=== PATIENT | male | born 1945 | race Hispanic/Latino ===

== ENCOUNTER 2019-05-30 02:21 | Emergency (ER) | payer OTHER, SELFPAY ==
[2019-05-30] MEDS ORDERED: ACETAMINOPHEN 500 MG TAB ONE (02:51)
[2019-05-30] MEDS ORDERED: METRONIDAZOLE 500mg IVPB 500 MG/100 ML BAG IV ONE (02:51)
[2019-05-30] MEDS ORDERED: NA CHLORIDE 0.9% 3,000 ML ONE (02:51)
[2019-05-30 02:53] LABS: Protime INR 1.25
[2019-05-30 03:02] LABS: Absolute Lymphocytes (CBC) 0.1 K/uL (0.7-4.9); Basophils % 0.5 % (0-1.3); Hematocrit 42.7 % (39.6-49.0); Lymphocytes % 7.6 % (15.3-44.8); MPV 9.6 fL (7.6-11.3); RBC Red Blood Cell Count 4.92 M/uL (4.33-5.43)
[2019-05-30] MEDS ORDERED: CEFTRIAXONE/SWI 1gm 1 GM/10 ML SYR ONE (03:04)
[2019-05-30 03:23] LABS: Albumin 3.6 g/dL (3.4-5.0); Bilirubin Direct 6.1 mg/dL (0-0.2); CKMB Creatine Kinase MB 2.2 ng/mL (0.3-3.6); Potassium 3.4 mmol/L (3.5-5.1); Protein, Total 8.4 g/dL (6.4-8.2)
[2019-05-30 04:01] LABS: Urine Blood 2+ (NEG); Urine Glucose 1+ (NEG); Urine Protein 3+ (NEG); Urine Specific Gravity >1.030 (1.005-1.030); Urine pH 5.5 (5.0-7.0)
[2019-05-30 04:09] LABS: Troponin (Emerg Dept Use Only) 0.11 ng/mL (0.0-0.045)
[2019-05-30 04:19] LABS: Blood Morphology Comment NOTED (NOT SEEN); Ovalocytes 2+; Platelet Estimate ADEQ
[2019-05-30 04:33] LABS: Urine Bacteria <20 /HPF (NONE SEEN); Urine Culture Reflex Order NOT NEEDED; Urine RBC <5 /HPF (NONE SEEN); Urine Urothelial Cells <5 /HPF (NONE SEEN)
--- NOTE | 2019-05-30 04:41 | EDPHYS ---
Physician Documentation [facility] Name: Kuldip Schaffer Jr Age: 74 yrs Sex: Male : 1945 Arrival Date: 05/30/2019 Time: 02:29 Bed 20 Private MD: ED Physician Cuate Larson HPI: 05/29 02:45 This 74 yrs old Male presents to ER via EMS with complaints of fever, RUQ abd ma2 pain. 02:45 The patient reports fever, that was measured at 103 degrees Fahrenheit. Associated ma2 signs and symptoms: Pertinent negatives: None. arthralgias, chest pain, sinus congestion. Severity of symptoms: At their worst the symptoms were moderate in the emergency department the symptoms are unchanged. The patient has experienced similar episodes in the past. Historical: - Allergies: 02:35 No Known Allergies; jd3 - Home Meds: 02:35 insulin [Active]; jd3 - PMHx: 02:35 Diabetes - IDDM; gal bladder problems; jd3 - PSHx: 02:35 left foot; jd3 - Immunization history:: Adult Immunizations up to date. - Social history:: Smoking status: Patient/guardian denies using tobacco, but has a distant history of tobacco abuse, Patient/guardian denies using alcohol, street drugs, The patient lives with spouse. - Family history:: not pertinent. ROS: 02:45 Constitutional: Negative for fever, chills, and weight loss. ma2 02:45 All other systems are negative. Exam: 02:45 Constitutional: This is a well developed, well nourished patient who is awake, alert, ma2 and in no acute distress. Head/Face: Normocephalic, atraumatic. Chest/axilla: Normal chest wall appearance and motion. Nontender with no deformity. No lesions are appreciated. Cardiovascular: Regular rate and rhythm with a normal S1 and S2. No gallops, murmurs, or rubs. Normal PMI, no JVD. No pulse deficits. Respiratory: Lungs have equal breath sounds bilaterally, clear to auscultation and percussion. No rales, rhonchi or wheezes noted. No increased work of breathing, no retractions or nasal flaring. Abdomen/GI: mildly tender in RUQ, with normal bowel sounds. No distension or tympany. No guarding or rebound. No evidence of tenderness throughout. Back: No spinal tenderness. No costovertebral tenderness. Full range of motion. Male : Normal genitalia with no discharge or lesions. MS/ Extremity: Pulses equal, no cyanosis. Neurovascular intact. Full, normal range of motion. Neuro: Awake and alert, GCS 15, oriented to person, place, time, and situation. Cranial nerves II-XII grossly intact. Motor strength 5/5 in all extremities. Sensory grossly intact. Cerebellar exam normal. Normal gait. Psych: Awake, alert, with orientation to person, place and time. Behavior, mood, and affect are within normal limits. Vital Signs: 02:35 BP 160 / 68; Pulse 103; Resp 20 S; Temp 103.2(O); Pulse Ox 86% on R/A; Weight 95.25 kg jd3 (R); Height 5 ft. 7 in. (170.18 cm) (R); Pain 0/10; 02:35 Pulse Ox 95% on 4 lpm NC; jd3 03:11 BP 147 / 67; Pulse 98; Resp 22 S; Pulse Ox 97% on 4 lpm NC; Pain 0/10; jd3 04:10 BP 126 / 63; Pulse 91; Resp 21 S; Temp 99.2(O); Pulse Ox 94% on 4 lpm NC; Pain 0/10; jd3 05:24 BP 127 / 72; Pulse 90; Resp 20 S; Pulse Ox 95% on 4 lpm NC; Pain 0/10; jd3 06:22 BP 116 / 66; Pulse 92; Resp 21 S; Pulse Ox 95% on 4 lpm NC; Pain 0/10; jd3 02:35 Body Mass Index 32.89 (95.25 kg, 170.18 cm) jd3 02:35 glucose level at 205 jd3 MDM: 02:39 Patient medically screened. ma2 02:45 Differential diagnosis: viral Infection, bacterial infection, URI, UTI. Data reviewed: ma2 vital signs, nurses notes. Counseling: I had a detailed discussion with the patient and/or guardian regarding: the historical points, exam findings, and any diagnostic results supporting the discharge/admit diagnosis, the presence of at least one elevated blood pressure reading (>120/80) during this emergency department visit, the need for outpatient follow up. Response to treatment: the patient's symptoms have markedly improved after treatment. 04:36 ED course: has sepsis, improved after fluids nd antibiotics, ct shows gallbladder stone ma2 however his tbili is 9 it is likely choledocholithiasis and his transaminases are elevated, we have gi doctor Sebastián called and his [employer] recommends transfer as he does not do ERCP in this hospital. will emergently transfer for higher level of care. he is stable now and aox4. no ultrasound available in our hospital at this time. . 05:07 Post IV fluid administration reassessment for Sepsis: Sepsis focused reassessment ma2 complete. Focused assessment performed: May 30, 2019 at 05:07 Heart: Regular rate/rhythm. Lungs: noted to be clear bilaterally. Capillary refill examination performed. Capillary refill noted to be brisk. Peripheral pulse evaluation performed. Peripheral pulses noted to be 3+ normal. Skin examination performed. Skin noted to be pink. Current patient vital signs reviewed: Yes. Neuro: Patient's neurological exam has improved from previous exam. Cardio: Cardiovascular exam improved from previous exam. Heart rate and blood pressure have improved. Respiratory: Respiratory exam improved from previous exam. 05/29 02:42 Order name: Amylase, Serum 2 05/29 02:42 Order name: Basic Metabolic Panel al2 05/29 02:42 Order name: Blood Culture Adult (2) al2 05/29 02:42 Order name: CBC with Diff; Complete Time: 04:44 05/29 02:42 Order name: Ckmb; Complete Time: 04:11 05/29 02:42 Order name: CPK; Complete Time: 04:11 05/29 02:42 Order name: Lactate; Complete Time: 03:52 05/29 02:42 Order name: LFT's; Complete Time: 04:11 05/29 02:42 Order name: Lipase; Complete Time: 04:11 05/29 02:42 Order name: Procalcitonin; Complete Time: 03:52 05/29 02:42 Order name: Protime (+inr); Complete Time: 03:52 al2 05/29 02:42 Order name: Ptt, Activated; Complete Time: 03:52 05/29 02:42 Order name: Troponin (emerg Dept Use Only); Complete Time: 04:11 al2 05/29 02:42 Order name: Urine Microscopic Only; Complete Time: 04:44 al2 05/29 02:42 Order name: Chest Single View XRAY al2 05/29 02:42 Order name: CT Abd/Pelvis - IV Contrast Only al2 05/29 02:43 Order name: Glucose, Ancillary Testing [facility] 05/29 02:43 Order name: Amylase Level; Complete Time: 04:11 [facility] 05/29 02:43 Order name: Basic Metabolic Panel; Complete Time: 04:11 [facility] 05/29 03:06 Order name: Manual Differential; Complete Time: 04:44 ED[facility] 05/29 03:33 Order name: Urine Dipstick--Ancillary (enter results); Complete Time: 04:11 md 05/29 05:54 Order name: Lactate Sepsis 2 HR Follow-up [facility] 05/29 02:42 Order name: Accucheck; Complete Time: 02:43 al2 05/29 02:42 Order name: Cardiac monitoring; Complete Time: 02:52 al2 05/29 02:42 Order name: EKG - Nurse/Tech; Complete Time: 02:43 al2 05/29 02:42 Order name: IV Saline Lock - Large Bore; Complete Time: 02:43 al2 05/29 02:42 Order name: Labs collected and sent; Complete Time: 02:52 ma2 05/29 02:42 Order name: O2 Per Protocol; Complete Time: 02:44 ma2 05/29 02:42 Order name: O2 Sat Monitoring; Complete Time: 02:52 al2 05/29 02:42 Order name: Urine Dipstick-Ancillary (obtain specimen); Complete Time: 04:49 ma2 05/29 04:47 Order name: NPO; Complete Time: 04:49 ma2 Administered Medications: 02:55 Drug: NS 0.9% (30 ml/kg) 30 ml/kg Route: IV; Rate: bolus; Site: right forearm; jd3 03:55 Follow up: Response: No adverse reaction; IV Status: Completed infusion; IV Intake: jd3 2900ml 02:56 Drug: Acetaminophen 1000 mg Route: PO; jd3 03:55 Follow up: Response: No adverse reaction jd3 02:56 Drug: Flagyl 500 mg Volume: 100 ml; Route: IVPB; Rate: 200 ml/hr; Infused Over: 30 jd3 mins; Site: right forearm; 03:55 Follow up: Response: No adverse reaction; IV Status: Completed infusion; IV Intake: jd3 100ml 03:00 Drug: Rocephin 1 grams Route: IV; Rate: calculated rate; Site: right forearm; jd3 03:05 Follow up: Response: No adverse reaction; IV Status: Completed infusion; IV Intake: [id number] 05:22 Not Given (Patient Refused): morphine 4 mg IVP once; RASS on ADMIN: Combtv4, Very jd3 Agttd3, Agttd2, Rstlss1, AlertClm0, Drwsy-1, Lt Sdtn-2, Mod Sdtn-3, Dp Sdtn-4, UnArsble-5 05:22 Not Given (Patient Refused): Zofran (Ondansetron) 4 mg IVP once; over 2 minutes jd3 Disposition: 05/30/19 04:[address] [facility]. Diagnosis is Calculus of bile duct with acute cholangitis with obstruction. - Reason for transfer: Higher level of care. - Accepting physician is Tamar Escobar - Condition is Stable. - Problem is new. - Symptoms are unchanged. Critical care time excluding procedures: 04:36 Critical care time: Bedside Care: 35 minutes. Total time: 35 minutes ma2 04:36 Critical care time: Bedside Care: 34 minutes, Consultation: 10 minutes, Family ma2 Intervention: 5 minutes. Total time: 49 minutes Signatures: Dispatcher [employer] Darius Baum RN RN jd3 Alzahri, Mohammad, MD MD ma2 Corrections: (The following items were deleted from the chart) 04:48 04:40 05/30/2019 04:[address] [facility]. ma2 Diagnosis is Calculus of bile duct with acute cholangitis with obstruction. Reason for transfer: Higher level of care. Accepting physician is OS. Condition is Stable. Problem is new. Symptoms are unchanged. ma2 05:31 05:07 LACTATE+C.LAB.BRZ ordered. [facility] 06:32 04:48 05/30/2019 04:[address] [facility]. jd3 Diagnosis is Calculus of bile duct with acute cholangitis with obstruction. Reason for transfer: Higher level of care. Accepting physician is Mamadou Escobar. Condition is Stable. Problem is new. Symptoms are unchanged. ma2
--- NOTE | 2019-05-30 04:41 | ER ---
Nurse's Notes [facility] Name: Kuldip Schaffer Jr Age: 74 yrs Sex: Male : 1945 Arrival Date: 05/30/2019 Time: 02:29 Bed 20 Private MD: Diagnosis: Calculus of bile duct with acute cholangitis with obstruction Presentation: 05/29 02:30 Chief complaint: EMS states: "we were called out for a pt having right upper abdominal jd3 pain. he has a reported history of diabetes and gal balder problems. he has slight fever and had become confused to the point he is A\\T\\O X1 when he is normally A\\T\\O X 4.". Coronavirus screen: Proceed with normal triage. Patient denies a cough. Patient reports a measured and/or subjective temperature greater than 100.4F. Patient denies travel on a cruise ship or to a country the [facility] currently lists as an affected area. Patient denies contact with known and/or suspected case of COVID-19. Ebola Screen: Patient negative for fever greater than or equal to 101.5 degrees Fahrenheit, and additional compatible Ebola Virus Disease symptoms. Initial Sepsis Screen: Does the patient meet any 2 criteria? Temp <36.0*C (96.8*F)) or > 38.3*C (100.9*F). Altered Mental Status. HR > 90 bpm. Yes Does the patient have a suspected source of infection? Yes: Acute abdominal pain If YES to both, name of provider notified: Cuate Larson MD Risk Assessment: Do you want to hurt yourself or someone else? Patient reports no desire to harm self or others. Onset of symptoms was May 30, 2019. 02:30 Method Of Arrival: EMS: [facility] jd3 02:30 Acuity: WILD 2 jd3 Historical: - Allergies: 02:35 No Known Allergies; jd3 - Home Meds: 02:35 insulin [Active]; jd3 - PMHx: 02:35 Diabetes - IDDM; gal bladder problems; jd3 - PSHx: 02:35 left foot; jd3 - Immunization history:: Adult Immunizations up to date. - Social history:: Smoking status: Patient/guardian denies using tobacco, but has a distant history of tobacco abuse, Patient/guardian denies using alcohol, street drugs, The patient lives with spouse. - Family history:: not pertinent. Screenin:39 Abuse screen: Denies threats or abuse. Nutritional screening: No deficits noted. jd3 Tuberculosis screening: No symptoms or risk factors identified. Fall Risk IV access (20 points). Ambulatory Aid- None/Bed Rest/Nurse Assist (0 pts). Gait- Weak (10 pts.). Mental Status- Oriented to own ability (0 pts). Total Pham Fall Scale indicates Low Risk Score (25-44 pts). Fall prevention measures have been instituted. Side Rails Up X 2 Placed close to Nursing Station Frequent Obs/Assesments occuring. Assessment: 02:36 General: Appears comfortable, Behavior is calm, cooperative, appropriate for age. Pain: jd3 Denies pain. Neuro: Level of Consciousness is awake, alert, obeys commands, Oriented to person, place. Cardiovascular: Denies chest pain, Heart tones S1 S2 present Capillary refill < 3 seconds Patient's skin is warm and dry. Respiratory: Airway is patent Respiratory effort is even, unlabored, Respiratory pattern is regular, symmetrical, Breath sounds are clear bilaterally. Denies cough, shortness of breath. GI: Abdomen is round Bowel sounds present X 4 quads. Abd is soft and non tender X 4 quads. Reports pain prior to arrival with no pain reported now. : No signs and/or symptoms were reported regarding the genitourinary system. EENT: No signs and/or symptoms were reported regarding the EENT system. Derm: Skin is intact, Skin is dry, Skin is normal, Skin temperature is warm. Musculoskeletal: Circulation, motion, and sensation intact. Range of motion: intact in all extremities. 03:12 Reassessment: Patient and/or family updated on plan of care and expected duration. Pain jd3 level reassessed. Patient is alert, oriented x 3, equal unlabored respirations, skin warm/dry/pink. Pain: Denies pain. Neuro: Level of Consciousness is awake, alert, obeys commands, Oriented to person, place, time, situation. 04:11 Reassessment: Patient and/or family updated on plan of care and expected duration. Pain jd3 level reassessed. Patient is alert, oriented x 3, equal unlabored respirations, skin warm/dry/pink. Pain: Denies pain. Neuro: Level of Consciousness is awake, alert, obeys commands, Oriented to person, place, time, situation. Respiratory: Airway is patent Respiratory effort is even, unlabored, Respiratory pattern is regular, symmetrical. GI: Patient currently denies abdominal pain. 05:25 Reassessment: Patient and/or family updated on plan of care and expected duration. Pain jd3 level reassessed. Patient is alert, oriented x 3, equal unlabored respirations, skin warm/dry/pink. Patient states feeling better. Pain: Denies pain. Neuro: Level of Consciousness is awake, alert, obeys commands, Oriented to person, place, time, situation. GI: Patient currently denies abdominal pain. 05:38 Reassessment: report given to Sofía WOO at [facility]. pt singed transfer sheet. jd3 06:21 Reassessment: No changes from previously documented assessment. Patient and/or family jd3 updated on plan of care and expected duration. Pain level reassessed. Patient is alert, oriented x 3, equal unlabored respirations, skin warm/dry/pink. awaiting EMS for transfer. 06:32 Reassessment: Patient and/or family updated on plan of care and expected duration. Pain jd3 level reassessed. Patient is alert, oriented x 3, equal unlabored respirations, skin warm/dry/pink. report given to Ruddy with EMS. Vital Signs: 02:35 BP 160 / 68; Pulse 103; Resp 20 S; Temp 103.2(O); Pulse Ox 86% on R/A; Weight 95.25 kg jd3 (R); Height 5 ft. 7 in. (170.18 cm) (R); Pain 0/10; 02:35 Pulse Ox 95% on 4 lpm NC; jd3 03:11 BP 147 / 67; Pulse 98; Resp 22 S; Pulse Ox 97% on 4 lpm NC; Pain 0/10; jd3 04:10 BP 126 / 63; Pulse 91; Resp 21 S; Temp 99.2(O); Pulse Ox 94% on 4 lpm NC; Pain 0/10; jd3 05:24 BP 127 / 72; Pulse 90; Resp 20 S; Pulse Ox 95% on 4 lpm NC; Pain 0/10; jd3 06:22 BP 116 / 66; Pulse 92; Resp 21 S; Pulse Ox 95% on 4 lpm NC; Pain 0/10; jd3 02:35 Body Mass Index 32.89 (95.25 kg, 170.18 cm) jd3 02:35 glucose level at 205 j ED Course: 02:29 Patient arrived in ED. jd3 02:30 Darius Davis, RN is Primary Nurse. jd3 02:33 Triage completed. jd3 02:35 Maintain EMS IV. Dressing intact. Good blood return noted. Site clean \\T\\ dry. Gauge \\T\\ nilesh 4 site: 20 g LAC. Flushed left antecubital with 5 ml normal saline Converted IV to saline lock on left antecubital area. 02:35 Initial lab(s) drawn, by me, sent to lab. jb4 02:36 Arm band placed on. EKG completed in triage. Results shown to MD. jd3 02:39 Cuate Larson MD is Attending Physician. ma2 02:40 Patient has correct armband on for positive identification. Placed in gown. Bed in low jd3 position. Call light in reach. Side rails up X 1. manager monitoring on. Pulse ox on. NIBP on. 02:40 First set of blood cultures drawn by me, Second set of blood cultures drawn by ED jb4 staff. EKG done, by ED staff, reviewed by Cuate Larson MD. 02:52 Blood Culture Adult (2) Sent. jb4 02:52 CBC with Diff Sent. jb4 02:52 Amylase, Serum Sent. jb4 02:53 Basic Metabolic Panel Sent. jb4 02:53 Ckmb Sent. jb4 02:53 CPK Sent. jb4 02:53 Lactate Sent. jb4 02:53 LFT's Sent. jb4 02:53 Lipase Sent. jb4 02:53 Procalcitonin Sent. jb4 02:54 Protime (+inr) Sent. jb4 02:54 Ptt, Activated Sent. jb4 02:54 Troponin (emerg Dept Use Only) Sent. jb4 02:54 Basic Metabolic Panel Sent. jb4 02:55 Amylase Level Sent. jb4 03:08 Chest Single View XRAY In Process Unspecified. EDMS 03:08 Notified ED physician of a critical lab result(s). WBC 1.3. jb4 03:21 Notified ED physician of a critical lab result(s). Lactate of 4.7, ALT 417, AST 360, jd3 Jhonny 9.0. 04:02 CT Abd/Pelvis - IV Contrast Only In Process Unspecified. EDMS 04:13 Notified ED physician of a critical lab result(s). CPK 1069. lp1 04:19 Notified ED physician of a critical lab result(s). Band count of 30%. jd3 06:23 Assisted with urinal. Cleaned of incontinence. jd3 06:31 No provider procedures requiring assistance completed. Patient transferred, IV remains jd3 in place. Administered Medications: 02:55 Drug: NS 0.9% (30 ml/kg) 30 ml/kg Route: IV; Rate: bolus; Site: right forearm; jd3 03:55 Follow up: Response: No adverse reaction; IV Status: Completed infusion; IV Intake: jd3 2900ml 02:56 Drug: Acetaminophen 1000 mg Route: PO; jd3 03:55 Follow up: Response: No adverse reaction jd3 02:56 Drug: Flagyl 500 mg Volume: 100 ml; Route: IVPB; Rate: 200 ml/hr; Infused Over: 30 jd3 mins; Site: right forearm; 03:55 Follow up: Response: No adverse reaction; IV Status: Completed infusion; IV Intake: jd3 100ml 03:00 Drug: Rocephin 1 grams Route: IV; Rate: calculated rate; Site: right forearm; jd3 03:05 Follow up: Response: No adverse reaction; IV Status: Completed infusion; IV Intake: [id number] 05:22 Not Given (Patient Refused): morphine 4 mg IVP once; RASS on ADMIN: Combtv4, Very jd3 Agttd3, Agttd2, Rstlss1, AlertClm0, Drwsy-1, Lt Sdtn-2, Mod Sdtn-3, Dp Sdtn-4, UnArsble-5 05:22 Not Given (Patient Refused): Zofran (Ondansetron) 4 mg IVP once; over 2 minutes jd3 Intake: 03:05 IV: 10ml; Total: 10ml. jd3 03:55 IV: 100ml; Total: 110ml. jd3 03:55 IV: 2900ml; Total: 3010ml. jd3 Outcome: 04:40 ER care complete, transfer ordered by . [email or web address] 06:32 Patient left the ED. jd3 Addendum: 06/04/2019 11:20 Addendum: Culture Results: Positive blood culture. Pt was contacted and pt reports he a a5 was d/c'd home from [facility] on Tuesday and was not prescribed any antibiotics. Pt states he has not scheduled follow-up appointment yet. Cipro 500mg BID x [address] Joseph called in to [facility] pharmacy in [place], [place]. Signatures: Dispatcher [employer] EDMS Jovana Heart, RN RN aa5 Doreen Chaudhari RN RN lp1 Vincent Crain, RN RN jb4 Darius Davis RN RN jd3 Cuate Larson MD MD ma2 Corrections: (The following items were deleted from the chart) 05/29 02:58 02:35 Pulse Ox 95% 2 lpm Nasal Cannula; jd3 j 06/03 11:24 11:20 Addendum: Culture Results: Positive blood culture. Pt was contacted and pt aa5 reports he was d/c'd home from [facility] on Tuesday and was not prescribed any antibiotics. Cipro 500mg BID x [address] Joseph called in to [facility] pharmacy in [place], [place]. aa5
[2019-05-30 06:48] VITALS: BP 116/66; TEMP 99.2; O2SAT 95
--- NOTE | 2019-05-30 08:26 | RAD REPORT ---
EXAM DESCRIPTION: RAD - Chest Single View - 05/30/2019 3:08 am CLINICAL HISTORY: ABDOMINAL DISTENTION Chest pain. COMPARISON: No comparisons FINDINGS: Portable technique limits examination quality. Mild linear subsegmental atelectasis is present both lung bases. The lungs are otherwise clear. The h eart is normal in size. No displaced fractures.
--- NOTE | 2019-05-30 08:54 | RAD REPORT ---
EXAM DESCRIPTION: CT Abdomen and Pelvis With Intravenous Contrast CLINICAL HISTORY: The patient is 74 years old and is Male; ABD PAIN TECHNIQUE: Axial computed tomography images of the abdomen and pelvis with intravenous contrast. S agittal and coronal reformatted images were created and reviewed. This CT exam was performed using one or more of the following dose reduction techniques: automated exposure control, adjustment of t he mA and/or kV according to patient size, and/or use of iterative reconstruction technique. COMPARISON: No relevant prior studies available. FINDINGS: LUNG BASES: There is mild subsegmental atelectasis and/or scarring in bilateral lung bas es. ABDOMEN: LIVER: The liver is fatty and enlarged. GALLBLADDER AND BILE DUCTS: Multiple calcified gallstones are present within a distended gallbla dder. There is no ductal dilatation or gallbladder wall thickening. PANCREAS: The pancreas is atrophic. SPLEEN: Unremarkable. ADRENALS: Hyperplasia of the adrenal glands is present. KIDNEYS AND URETERS: Unremarkable. The kidneys enhance symmetrically. No obstructing renal or ur eteral calculus is seen. No hydronephrosis or hydroureter. No perinephric fluid or stranding. STOMACH AND BOWEL: The stomach is minimally distended. The small bowel is normal in caliber. A m oderate amount stool is present within the left colon. No evidence of bowel obstruction. No significa nt bowel wall thickening. Colonic diverticulosis is noted, without associated inflammatory changes to suggest diverticulitis. PELVIS: APPENDIX: The appendix is normal in caliber without surrounding inflammation. BLADDER: Unremarkable. No mass. REPRODUCTIVE: Unremarkable as visualized. ABDOMEN and PELVIS: INTRAPERITONEAL SPACE: Unremarkable. No free air. No significant fluid collection. 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 SOFT TISSUES: Evidence of a prior left inguinal hernia repair is noted. There is a fat-containin g left inguinal hernia however. VASCULATURE: Atherosclerosis of the vasculature is present. No abdominal aortic aneurysm. LYMPH NODES: Unremarkable. No enlarged lymph nodes. IMPRESSION: 1. Colonic diverticulosis without evidence of diverticulitis. 2. Cholelithiasis with distended gallbladder. If there is clinical concern for acute gallbladder pa thology, findings could be further evaluated with ultrasound or HIDA scan. Electronically signed by: Tarah Morris MD 05/30/2019 4:11 AM CDT Due to temporary technical issues with the PACS/Fluency reporting system, reports are being signed by the in house radiologist as a courtesy to ensure prompt reporting. The interpreting radiologist is f ully responsible for the content of the report.
--- NOTE | 2019-05-30 18:31 | EKG ---
Test Date: 2019-05-30 Test Time: 02:35:39 Medical Office Manager: CASE MEASUREMENT RESULTS: Intervals: Rate: 101 WA: 128 QRSD: 92 QT: 336 QTc: 435 [place]: P: 36 WA: 128 QRS: -3 T: 68 INTERPRETIVE STATEMENTS: Sinus tachycardia ST & T wave abnormality, consider lateral ischemia Abnormal ECG No previous ECG available for comparison Electronically Signed On 05-30-19 18:31:06 CDT by William Sharp
== END 2019-05-30 06:32 | disposition short-term general hospital (02) ==
LOC: ER 02:21
DX: K80.31 Calculus of bile duct with cholangitis, unspecified, with obstruction (principal); E11.9 Type 2 diabetes mellitus without complications; Z79.4 Long term (current) use of insulin
CPT/HCPCS: 96365; 93005; 87040 ×2; 85025; 80048; 36415; 82150; 82550; 87205 ×2; 85610; 82947; 80076; 83605 ×2; 85730; 87077 ×2; 87186 ×2; 84484; 82553; 83690; 84145; 74177; 71045; 96375; 99285; Q9967; J0696; J7030; 81003; 81015

== ENCOUNTER 2020-05-12 13:25 | Observation (INO) | payer OTHER ==
--- OUTSIDE RECORDS SUMMARY | 2020-05-12 13:31 | XMS REPORT | Continuity of Care Document ---
:1945 Author Organization [facility] t Address [address] [place] [address] Care Team Providers Name Role Phone Pcp MD Primary Care Physician Unavailable GERMAN NAVARRO Attending Clinician Unavailable German Navarro MD Attending Clinician Valorie NAVA, In Attending Clinician Edison NAVA Attending Clinician Niki Madrigal MD Attending Clinician Veronica NAVA, FObdulio Attending Clinician Carlos WOO, L Attending Clinician Unavailable Citlalli Haskins MD Attending Clinician Bc Islas Attending Clinician SHILPI EUGENE Admitting Clinician Unavailable Payers Payer Name Policy Type Policy Effective Date Expiration Date Sour ce Number MEDICAREMEDICARE A [id number] 2010 HUMPHREY Espinal [id number] 2010-P 00:00[facility] Problems Condition Condition Condition Status Onset Resolution Last Treating Co mments Source Name Details Category Date Date Treatment Clinician Date Cholangiti Cholangiti Disease Active [facility] 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 Family History Family Member Diagnosis Comments Start Date Stop Date Source Natural brother Diabetes [facility] Natural father Diabetes [facility] Natural father Heart disease [facility] Maternal aunt Diabetes [facility] Maternal grandfather Diabetes [facility] Maternal grandmother Diabetes [facility] Maternal uncle Diabetes [facility] Natural mother Diabetes [facility] Paternal aunt Diabetes [facility] Paternal grandfather Diabetes [facility] Paternal grandmother Diabetes [facility] Paternal uncle Diabetes [facility] Natural sister Diabetes [facility] Social History Social Habit Start Date Stop Date Quantity Comments Source History [facility] - Alcohol Std Drinks Medica Center History [facility] Alcohol Binge [facility] [address] Sex Assigned At [facility] Tobacco use and 2019-05-31 2019-05-31 Former user [facility] - exposure 00:00:00 00:00:[address] [facility] Alcohol intake 2019-05-31 2019-05-31 Current [facility] 00:00:00 00:00:00 non-drinker of Medical Ce nter alcohol (finding) History [facility] 2019-05-30 2019-05-30 1 [facility] - Alcohol Frequency 00:00:00 00:00:[address] [facility] Tobacco Comment 2019-05-30 2019-05-30 quit 22 yrs ago [facility] - 00:00:00 00:00:[address] [facility] Alcohol Comment 2019-05-30 2019-05-30 prevoos alcohol [facility] - 00:00:00 00:00:00 drinker ,quit [address] drinking about 30 yrs ago Smoking Status Start Date Stop Date Source Former smoker 2019-05-31 00:00:00 2019-05-31 00:00:00 [facility] Medications Ordered Filled Start Stop Current Ordering Indication Dosage Frequency Signature Comments Components Source Medication Medication Date Date Medication? Clinician (SIG) Name Name lisinopriL 2019- No 20mg QD Take [address] [facility] (PRINIVIL,Z -26 05-26 tablet (20 L ukes - ESTRIL) 20 00:00: 23:59 mg total) M edical MG tablet 00 :00 by mouth Center daily for 30 days. insulin 2019- Yes type [address] [address] aspart 06-01 diabetes subcutaneo Lucy es - protamine-i 14:31: mellitus usly 3 Medical nsulin 29 (three) Center aspart times (NOVOLOG daily MIX 70/30) before 100 unit/mL meals. (70-30) injection Missing or 2019- No Pt. Said [facility] Non-Formula 06-01 takes herb L ukes - ry 12:22: 00:00 tab once a Medica l Medication 13 :00 day for Center High blood pressure . carvediloL 2019- No 25mg Q.5D Take [address] [facility] (COREG) 25 -25 05-25 tablet (25 Jazzy kes - MG tablet 00:00: 23:59 mg total) Me dical 00 :00 by mouth 2 Center (two) times daily for 30 days. traMADoL 2019- No 50mg Take [address] [facility] (ULTRAM) 50 4-25 05-02 tablet (50 L ukes - mg tablet 00:00: 23:59 mg total) Me dical 00 :00 by mouth Center every 8 (eight) hours as needed for Pain for up to 7 days. Max Daily Amount: 150 mg Vital Signs Vital Name Observation Time Observation Value Comments Source Systolic blood 2019-06-02 12:15:00 141 mm[Hg] [facility] Diastolic blood 2019-06-02 12:15:00 75 mm[Hg] [facility] S t [facility] Heart rate 2019-06-02 12:15:00 71 /min [facility] Respiratory rate 2019-06-02 12:15:00 18 /min [facility] Body temperature 2019-06-02 11:23:00 36.44 Caro [facility] Oxygen saturation in 2019-06-02 11:23:00 94 /min [facility] Arterial blood by Medical Ce nter Pulse oximetry Procedures Procedure Date / Time Performed Performing Clinician [facility] RHYTHM STRIP - SCAN 2019-06-04 13:36:40 Provider, Default [facility] RHYTHM STRIP - SCAN 2019-06-04 13:36:18 Provider, Default [facility] RHYTHM STRIP - SCAN 2019-06-04 13:22:02 Provider, Default [facility] POCT-GLUCOSE METER 2019-06-02 11:56:00 Edison [facility] POCT-GLUCOSE METER 2019-06-02 07:38:00 Edison [facility] COMPREHENSIVE METABOLIC 2019-06-02 05:16:[address] [facility] HEMOGLOBIN A1C 2019-06-02 05:16:00 Edison [facility] CBC W/PLT COUNT & AUTO 2019-06-02 05:16:00 Edison [facility] S [facility] MAGNESIUM 2019-06-02 05:16:00 Edison [facility] POCT-GLUCOSE METER 2019-06-01 20:17:00 Edison [facility] TRANSFUSION SERVICE 2019-06-01 18:02:22 Provider, [facility] REPORT SCAN [facility] POCT-GLUCOSE METER 2019-06-01 16:32:00 Edison [facility] MRA HEAD WITHOUT IV 2019-06-01 14:47:00 Edison [facility] MRA NECK WITHOUT IV 2019-06-01 14:47:00 Edison [facility] MR BRAIN WITHOUT IV 2019-06-01 14:47:00 Edison [facility] POCT-GLUCOSE METER 2019-06-01 11:39:00 Edison [facility] POCT-GLUCOSE METER 2019-06-01 06:55:00 Edison [facility] COMPREHENSIVE METABOLIC 2019-06-01 04:18:[address] [facility] CBC W/PLT COUNT & AUTO 2019-06-01 04:18:00 Edison [facility] S t [facility] MAGNESIUM 2019-06-01 04:18:00 Edison [facility] (CELLAVISION MANUAL DIFF) 2019-06-01 04:18:00 Edison [facility] POCT-GLUCOSE METER 2019-06-01 00:28:00 Edison [facility] POCT-GLUCOSE METER 2019-05-31 12:34:00 Edison [facility] TISSUE EXAM 2019-05-31 11:10:00 Nisa Martin [facility] LAPAROSCOPY,CHOLECYSTECTO 2019-05-31 08:22:00 Nisa Martin [facility] POCT-GLUCOSE METER 2019-05-31 07:44:00 Edison [facility] ABORH, MANUAL 2019-05-31 05:50:00 Louise Cary [facility] POCT-GLUCOSE METER 2019-05-31 05:26:00 Edison [facility] COMPREHENSIVE METABOLIC 2019-05-31 04:26:00 Jim Eugene In [facility] TYPE AND SCREEN, 2019-05-31 [facility] W/[facility]T [facility] & AUTO 2019-05-31 04:26:00 Jim Eugene In [facility] (CELLAVISION MANUAL DIFF) 2019-05-31 04:26:00 Jim Eugene In [facility] POCT-GLUCOSE METER 2019-05-30 21:08:00 Edison [facility] POCT-GLUCOSE METER 2019-05-30 18:31:00 Jim Eugene In [facility] [place] ERCP 2019-05-30 14:18:00 Jim Eugene In [facility] REPORT OF PROCEDURE - 2019-05-30 14:03:27 Pritesh Islasammed [facility] ENDOSCOPY [facility] ERCP,BALLOON SWEEPING 2019-05-30 13:03:00 Pritesh Islas [facility] ERCP,PAPILLOTOMY 2019-05-30 13:03:[address] [facility] PROCEDURE W/ C-ARM 2019-05-30 13:03:00 Pritesh Islas [facility] BLOOD CULTURE 2019-05-30 11:07:00 Jim Eugene In [facility] CBC W/PLT COUNT & AUTO 2019-05-30 10:54:00 Jim Eugene In [facility] (CELLAVISION MANUAL DIFF) 2019-05-30 10:54:00 Jim Eugene In I [facility] BLOOD CULTURE 2019-05-30 10:54:00 Jim Eugene In [facility] PT/APTT 2019-05-30 10:54:00 Jim Eugene In [facility] COMPREHENSIVE METABOLIC 2019-05-30 10:54:00 Jim Eugene In [facility] LACTIC ACID, VENOUS 2019-05-30 10:54:00 Jim Eugene In [facility] MAGNESIUM 2019-05-30 10:54:00 Jim Eugene In [facility] PHOSPHORUS 2019-05-30 10:54:00 Jim Eugene In [facility] ECG 12-LEAD 2019-05-30 10:49:03 Jim Eugene In [facility] POCT-GLUCOSE METER 2019-05-30 08:15:00 Jim Eugene In [facility] POCT-GLUCOSE METER 2019-05-30 08:09:00 Jim Eugene In [facility] Plan of Care Planned Activity Planned Date Details Comments Source Future Scheduled 2020-02-08 DEPRESSION SCREENING [facility] - Test 00:00:00 (12+) [code = Medical Center DEPRESSION SCREENING (12+)] Future Scheduled 2019-12-02 Hemoglobin A1c [facility] Test 00:00:[address] [facility] (procedure) [code = 28246720] Future Scheduled 2019-10-09 INFLUENZA VACCINE (#1) [facility] - Test 00:00:00 [code = INFLUENZA Medical Ce nter VACCINE (#1)] Future Scheduled 2011-02-[address] [facility] - Test 00:00:00 WELLNESS (YEAR 2 or Medical Center FIRST YEAR if no IPPE) [code = MEDICARE ANNUAL WELLNESS (YEAR 2 or FIRST YEAR if no IPPE)] Future Scheduled 2010 PNEUMOCOCCAL 65+ YRS [facility] - Test 00:00:00 (1 of 1 - Medical Center [id number] PCV13) [code = PNEUMOCOCCAL 65+ YRS (1 of 1 - [id number] PCV13)] Future Scheduled 1964-02-25 HEPATITIS B VACCINE ([address] [facility] - Test 00:00:00 of 3 - Risk 3-dose Medical C enter series) [code = HEPATITIS B VACCINE (1 of 3 - Risk 3-dose series)] Future Scheduled 1955 DIABETIC EYE EXAM [facility] - Test 00:00:00 [code = DIABETIC EYE Medical Center EXAM] Future Scheduled [address] [facility] - Test 00:00:00 examination Medical Center (regime/therapy) [code = 747197765] Future Scheduled 1955 Urine screening for [facility] - Test 00:00:00 protein (procedure) Medical Center [code = 299450167] Future Scheduled [address] [facility] - Test 00:00:00 malignant neoplasm of [facility] colon (procedure) [code = 480315750] Results Test Description Test Time Test Comments Results Result Comments Source Blood Culture - Routine (Right Venipuncture) 2019-06-04 13:0 0:00 Test Item Value Reference Range Interpretation Comme nts Result (test code = 6463-4) No growth in 5 days [facility] [id number] 13:00:00 Test Item Value Reference Range Interpretation Comments CULTURE (BEAKER) (test No growth in 5 days code = 1095) BLOOD [id number] 13:00:00 Test Item Value Reference Range Interpretation Comments CULTURE (BEAKER) (test No growth in 5 days code = 1095) POC-Glucose [id number] 12:07:00 Test Item Value Reference Range Interpretation Comments POC-Glucose Meter (test 218 mg/dL 70-110 H : TE STED AT [facility] code = 1538) [address] [place], [address]: Business Center Representative/Techni smita ID = [id number] for PUMA MARTINEZ Lab Interpretation (test Abnormal code = 29986-1) [facility] [id number] 12:07:00 Test Item Value Reference Range Interpretation Comments POC-GLUCOSE METER 218 mg/dL 70-110 H : TESTED A T [facility] 6720 (BEAKER) (test code = LEONORA Arias [place], 1538) [address]: Business Center Representative/Techni smita ID = [id number] for PUMA DIAZ Hemoglobin [id number] 09:04:00 Test Item Value Reference Range Interpretation Comments Hemoglobin A1C (test code = 4548-4) 7.5 % 4.3-6.1 H Lab Interpretation (test code = Abnormal 05597-1) [facility] [id number] 09:04:00 Test Item Value Reference Range Interpretation Comments HEMOGLOBIN A1C (BEAKER) (test code = 7.5 % 4.3-6.1 H 368) POCT-GLUCOSE [id number] 07:50:00 Test Item Value Reference Range Interpretation Comments POC-GLUCOSE METER 184 mg/dL 70-110 H : TESTED A T [facility] 6720 (BEAKER) (test code = [facility], 1538) [address]: Business Center Representative/Techni smita ID = [id number] for PUMA DIAZ Comprehensive metabolic [id number] 07:19:00 Test Item Value Reference Range Interpretation Comments Protein, Total (test 6.8 See_Comment [Autom ated code = 2885-2) message] The system which generated this result transmitted reference range : 6.0 - 8.3 gm/dL . The reference range was not used to interpr et this result as normal/abnormal . Albumin (test code = 3.3 g/dL 3.5-5 L 60886-4) Alkaline Phosphatase 191 U/L 40-150 H (test code = 6768-6) Total Bilirubin (test 3.5 mg/dL 0.2-1.2 H code = 1975-2) Sodium (test code = 139 meq/L 663-176 3890-2) Potassium (test code 3.8 meq/L 3.5-5.1 = 2823-3) Chloride (test code = 106 meq/L 98-107 2075-0) CO2 (test code = 27 meq/L -2027-9) BUN (test code = 13 mg/dL 7- 3094-0) Creatinine (test code 0.83 mg/dL 0.57-1.25 = 2160-0) Glucose (test code = 178 mg/dL 70-105 H 2345-7) Calcium (test code = 7.9 mg/dL 8.4-10.2 L 67836-4) AST (test code = 259 U/L 5-34 H 1920-8) ALT (test code = 320 U/L 6-55 H 1742-6) EGFR (test code = 91 mL/min/1.73 [place] [address]-4) NOT ACCURATE CREATININE CLEARANCE IN PREDICTING GLOMERULAR FILTRATION RATE . ESTIMATED GFR I S NOT APPLICABLE FOR DIALYSIS PATIENTS. SADE (test code = SADE) Business Center Representative ID - XENA MSpecimen slightly icteric Lab Interpretation Abnormal (test code = 16590-7) [facility]PRE[facility] METABOLIC [id number] 07:19:00 Test Item Value Reference Range Interpretation Comments TOTAL PROTEIN 6.8 gm/dL 6.0-8.3 (BEAKER) (test code = 770) ALBUMIN (BEAKER) 3.3 g/dL 3.5-5.0 L (test code = 1145) ALKALINE PHOSPHATASE 191 U/L 40-150 H (BEAKER) (test code = 346) BILIRUBIN TOTAL 3.5 mg/dL 0.2-1.2 H (BEAKER) (test code = 377) SODIUM (BEAKER) (test 139 meq/L 136-145 code = 381) POTASSIUM (BEAKER) 3.8 meq/L 3.5-5.1 (test code = 379) CHLORIDE (BEAKER) 106 meq/L 98-107 (test code = 382) CO2 (BEAKER) (test 27 meq/L code = 355) BLOOD UREA NITROGEN 13 mg/dL - (BEAKER) (test code = 354) CREATININE (BEAKER) 0.83 mg/dL 0.57-1.25 (test code = 358) GLUCOSE RANDOM 178 mg/dL 70-105 H (BEAKER) (test code = 652) CALCIUM (BEAKER) 7.9 mg/dL 8.4-10.2 L (test code = 697) AST (SGOT) (BEAKER) 259 U/L 5-34 H (test code = 353) ALT (SGPT) (BEAKER) 320 U/L 6-55 H (test code = 347) EGFR (BEAKER) (test 91 mL/min/1.73 ESTIMA ARNGEL GFR IS code = 1092) sq m NOT ACCURATE CREATININE CLEARANCE IN PREDICTING GLOMERULAR FILTRATION RATE . ESTIMATED GFR I S NOT APPLICABLE FOR DIALYSIS PATIEN TS. Business Center Representative ID - XENA MSpecimen slightly [id number] 07:18:00 Test Item Value Reference Range Interpretation Comments Magnesium (test code = 1.8 mg/dL 1.6-2.6 92784-0) SADE (test code = SADE) Business Center Representative ID - XENA M Lab Interpretation (test Normal code = 46832-8) [id number] 07:18:00 Test Item Value Reference Range Interpretation Comments MAGNESIUM (BEAKER) (test code = 1.8 mg/dL 1.6-2.6 627) Business Center Representative ID - XENA MCBC with platelet count + automated [id number] 06:46:00 Test Item Value Reference Range Interpretation Comments WBC (test code = 6690-2) 5.9 See_Comment [A utomated message] The system [email or web address] generated this result transmitted ref erence range: 3.5 - 10 .5 K/L. The refe rence range was not u sed to interpret this result as normal/abnor mal. RBC (test code = 789-8) 4.27 See_Comment L [Au tomated message] The system [email or web address] generated this result transmitted ref erence range: 4.63 - 6 .08 M/L. The refe rence range was not u sed to interpret this result as normal/abnor mal. MCHC (test code = 786-4) 32.5 See_Comment L [A utomated message] The system [email or web address] generated this result transmitted ref erence range: 32.3 - 3 6.5 GM/DL. The refe rence range was not u sed to interpret this result as normal/abnor mal. Hematocrit (test code = 37.2 % 40.1-51 L 4544-3) MCV (test code = 787-2) 87.1 fL 79-92.2 MCH (test code = 785-6) 28.3 pg 25.7-32.2 RDW (test code = 788-0) 17.7 % 11.6-14.4 H Platelets (test code = 140 See_Comment L [Aut omated message] 777-3) The system [email or web address] generated this result transmitted ref erence range: 150 - 45 0 K/CU MM. The referen ce range was not u sed to interpret this result as normal/abnor mal. MPV (test code = 12.2 fL 9.4-12.4 03464-7) nRBC (test code = 413) 0 See_Comment [Aut omated message] The system [email or web address] generated this result transmitted ref erence range: 0 - 0 /1 00 WBC. The refere nce range was not u sed to interpret this result as normal/abnor mal. % Neutros (test code = 72 % 429) % Lymphs (test code = 13 % 430) % Monos (test code = 11 % 431) % Eos (test code = 432) 1 % % Baso (test code = 437) 1 % # Neutros (test code = 4.25 See_Comment [Aut omated message] 670) The system [email or web address] generated this result transmitted ref erence range: 1.78 - 5 .38 K/L. The refe rence range was not u sed to interpret this result as normal/abnor mal. # Lymphs (test code = 0.78 See_Comment L [Auto mated message] 414) The system [email or web address] generated this result transmitted ref erence range: 1.32 - 3 .57 K/L. The refe rence range was not u sed to interpret this result as normal/abnor mal. # Monos (test code = 0.67 See_Comment [Autom ated message] 415) The system [email or web address] generated this result transmitted ref erence range: 0.30 - 0 .82 K/L. The refe rence range was not u sed to interpret this result as normal/abnor mal. # Eos (test code = 416) 0.07 See_Comment [Au tomated message] The system [email or web address] generated this result transmitted ref erence range: 0.04 - 0 .54 K/L. The refe rence range was not u sed to interpret this result as normal/abnor mal. # Baso (test code = 417) 0.03 See_Comment [A utomated message] The system [email or web address] generated this result transmitted ref erence range: 0.01 - 0 .08 K/L. The refe rence range was not u sed to interpret this result as normal/abnor mal. Immature 2 % 0-1 H Granulocytes-Relative (test code = 2801) Lab Interpretation (test Abnormal code = 62774-8) [facility] W/PLT COUNT & AUTO [id number] 06:46:00 Test Item Value Reference Range Interpretation Comments WHITE BLOOD CELL COUNT (BEAKER) 5.9 K/ L 3.5-10.5 (test code = 775) RED BLOOD CELL COUNT (BEAKER) 4.27 M/ L 4.63-6.08 L (test code = 761) HEMOGLOBIN (BEAKER) (test code = 12.1 GM/DL 13.7-17.5 L 410) HEMATOCRIT (BEAKER) (test code = 37.2 % 40.1-51.0 L 411) MEAN CORPUSCULAR VOLUME (BEAKER) 87.1 fL 79.0-92.2 (test code = 753) MEAN CORPUSCULAR HEMOGLOBIN 28.3 pg 25.7-32.2 (BEAKER) (test code = 751) MEAN CORPUSCULAR HEMOGLOBIN CONC 32.5 GM/DL 32.3-36.5 (BEAKER) (test code = 752) RED CELL DISTRIBUTION WIDTH 17.7 % 11.6-14.4 H (BEAKER) (test code = 412) PLATELET COUNT (BEAKER) (test 140 K/CU MM 150-450 L code = 756) MEAN PLATELET VOLUME (BEAKER) 12.2 fL 9.4-12.4 (test code = 754) NUCLEATED RED BLOOD CELLS 0 /100 WBC 0-0 (BEAKER) (test code = 413) NEUTROPHILS RELATIVE PERCENT 72 % (BEAKER) (test code = 429) LYMPHOCYTES RELATIVE PERCENT 13 % (BEAKER) (test code = 430) MONOCYTES RELATIVE PERCENT 11 % (BEAKER) (test code = 431) EOSINOPHILS RELATIVE PERCENT 1 % (BEAKER) (test code = 432) BASOPHILS RELATIVE PERCENT 1 % (BEAKER) (test code = 437) NEUTROPHILS ABSOLUTE COUNT 4.25 K/ L 1.78-5.38 (BEAKER) (test code = 670) LYMPHOCYTES ABSOLUTE COUNT 0.78 K/ L 1.32-3.57 L (BEAKER) (test code = 414) MONOCYTES ABSOLUTE COUNT (BEAKER) 0.67 K/ L 0.30-0.82 (test code = 415) EOSINOPHILS ABSOLUTE COUNT 0.07 K/ L 0.04-0.54 (BEAKER) (test code = 416) BASOPHILS ABSOLUTE COUNT (BEAKER) 0.03 K/ L 0.01-0.08 (test code = 417) IMMATURE GRANULOCYTES-RELATIVE 2 % 0-1 H PERCENT (BEAKER) (test code = 2801) POCT-GLUCOSE [id number] 20:30:00 Test Item Value Reference Range Interpretation Comments POC-GLUCOSE METER 195 mg/dL 70-110 H : TESTED A T [facility] 6720 (BEAKER) (test code = [facility], 1538) [address]: Business Center Representative/Techni smita ID = [id number] for ALTAGRACIA MARTINES POCT-GLUCOSE [id number] 16:46:00 Test Item Value Reference Range Interpretation Comments POC-GLUCOSE METER 206 mg/dL 70-110 H : TESTED A T [facility] 6720 (BEAKER) (test code = [facility], 1538) [address]: Business Center Representative/Techni smita ID = [id number] for QUEEN DELGADO Tissue [id number] 16:36:00 Test Item Value Reference Range Interpretation Comments Case Report (test code Surgical Pathology = 104) Report Case: [id number] Authorizing Provider: Nisa Martin MD Collected: 05/31/2019 11:10 AM Ordering Location: [facility] PERI[facility] Received: 05/31/2019 11:34 AM SERVICES Pathologist: Aileen Salinas MD Specimen: Gallbladder DIAGNOSIS (test code = t4sipBFsIULhe4rtRPVupPR 3220) uZzEwMzNcZnRuYmpcdWMxIH bhxnPhXFyho0XsT3RyZqUxE FxhbnNpXGRlZmxhbmcxMDMz CVD7ezCeJRHcZMleQXXhEGi cEi4lzARhrUcbVwZkQOTbv1 ledhGNcycgzMl2r5plKQWaN bW8aYUhTEyhO4dxqeFnkQHj JJCvZLa7oA03TJBjxQ0rwPD kZLceocPgShW9AGesVXQdYz G2ANYllJThFPIrE1uyJRJyK FehYQTeXWtgzGEaKZD9tBor k6C0kNJdhFVotPcrHuHuPzN eSHFEb5IkJDu7kTqmZ0IyVJ BzVhQ0gBFoZWBcJTkdMQTvF LHhbyO1iA92BTpdwoW5kYOo a7Icf38cl177qJ1ehRFmZYF 9CDPdKEIdnZZdEQXcPAW7LB PubAHwT4n6NhUzuNQrX6F4W pNxiEAnH6C0HkXatDPcQ4D2 PwGipSOrQFZpgCWlXz3tnRX ohHIkyw4ika46RGT7r0PcgX qxLKK3PVX3SaSqUg9ktRZiS XKeNO9hZlKgaEAhYBNuvk68 sUcmNRtvipJzmL5qEcHrWVI dtWWjUCOuSG0hnGEzXKLkdM 5ucmxjXHBnYnJkcmhlYWRcc JqzgqXoOi9wvEuuJMT3DAga S8rqmP8lNwJ9LJahQ5qssJ2 rALq6UUabtGL8TIOnvX9sYA 4yruwuj1znMcDzOJ8mcuzyp 6caUiCeHN0uple9r3xpPsVx UY2csmohi5uiHpCiXNpnRYS onhmaRCMcn8PbvozaSCSza0 IsB3TtdTvaS81hyFoiG30xI CCqiJkgoF9yvVhmaO9nQbFg ZnMyNFxxbFxwbGFpblxmMVx mczIwXGxhbmcxMDMzXGhpY2 hpQzSnMXIfdBdxAVkuk5ZfC MZdFRUrWtEpMH8oG3ZMSIKT DPQZGYRSHMKTAB2YSOOVQ1Y OW9OOQCz7FOTeweTsCI0tQ8 yAQ59TKiDGPR7TOCSAB1VQP WiKIKWenjVtXJ3xB5cYTMEL YWuYTBTAR8jzXUK8n1vznCB xXHNzdGUxODAwMFxhbnNpXG DcQukksfdtGVHtNJA1dxGgA RCuVPfrLYCbDRxgUt5gtEPe hRhvUbMoRSIok1zpxoQSifq iyWc7x2yxAQAxYdY7gIShJQ vnF9keheHufPQsGXTrMUx7g X77FGVctB2gzJNxCHuaijGa QrU1ESuiUCNjLkT9WQShhNT kGXBaC5tbNNRmFVoaBCSkSN vmeEQdTXG8lRonl1I5uNMem NWgiQobLhEmYhSsUoHIa8Qh GKf5zTsuZ2TcCCHxNkR0xUU wFYMyOBcqTZTtMSIbnkS9sJ 23KDraixP6hDSyy1Hdt47my 617oQ6tsHDsMRN6TYVvSBKu lTJeSHRwDME4SARmhLVqL2z jYGOhLN8wymmySYzdYGuiVP ObwPN5DMPupPDkE7ZgSPMcJ QgqRISvnwh5DrFvQl1peHLp xAkkSFsxn6pvo0jiyYVbJgz 8SKJcUdEhFvwpAWkpf4Zff1 fwANQuxw8xBVR6tETlxLtoe 9Z6qEHxJSItxTMoRCUpKT5y uLJpPPHxpO8pnpmeRYZgUkT pcqlrLQCwrPyqfzIrVk5mqD xhFNS7SLhsV0sfmB0nHcU3W LzaZ5pakS7gYCu0VGbbXTEh gCU3ciL7WFCdiGKgX5FahK0 tYYNeKF9adlq9j2idULV3EB foDZJsImJ9lwF9XVUufFThY WVmsKqlHTovm884JUX4ZjTy UEYdt6ZzU2KetEryJ55mqQt tG20sONTvqGdphB6rfCkkoS 1aLyPvMaFiZXxhlBgkWI0uA AFwY6vtfBAjOQIhKZCdX4de EgNtfW9cmSjaHGlyymNxLRH cFvi8JSTyfKMsGNRjOha2QY MbQTLaX51zyoicITH3pP4ym 7hqe1GwTEfoHYL9CJXgl84y KTzrwvQ7DYsoOb9fZcEjCLU 5QDapTRQ5sF== CPT Code(s) (test code f8dzrXOvWHUjaPLnPvXgHPY = 3357) aETTvz1irQRFelOUsRqRqFu NcZnRuYmpcdWMxXGRlZmYwe 8ydq729oTBdw7izBWMtEsL9 iMZwUEXaxSMvS051t5yes8x chaQnuTL0SPUaOIS3EVlddu BpppP9FDdoxEScWvY7RXykf zBwFBdqfbFtrmSsRiu4PCNi Y186SMW5rHujn6vuUWC2FOS hBZSxIuUwMz0kpAUcR925SJ WtDWMRFUYbaEm5JMRxfwQok eJfiMLTd128Y890h4koHDHr iwOuiYdNflpoe6vdL943PRL hcGVydzEyMjQwXHBhcGVyaD D1OCXxRU2zsytiZeNlQN0wm vugUkKaCX5hscs5RtJqWP0c cmdiNzIwXGhlYWRlcnkwXGZ ro9UtnfyqBV8kG5Pxx7S6xH 9maXRcZGVmdGFiNzIwXGZvc a7zsKGvMOnnm9PuZXW4nnB7 sHYezYZpMCAlNO30Terbl5X xXizqUZU8WYVfedEfl3Yaw9 zmHaQttyEnW4vaQ1KrSAKwP RMyRMJwSkHaqvGla9Hxb2Px vCTvwTw8i9ikTQKsRRDdrPa qv2wkKUQ5QRRdP9B2oNRhv1 zqUIlzQTNpmET2jhphVJlnC CSocwK4gigcWNueAXAyxOW4 xrvrRGyhYLUgBeG1ggjzMIe vRFAlEOY0IPkwz553VCA2HV xzYmtwYWdlXHBnbmNvbnRcc GduZGVjXHBsYWluXHBsYWlu XGYwXGZzMjRccWxccGxhaW5 lDaCtVnOiLFrkMG6lUCYvJ9 zpfORqSYHeBZTrR0deZwRyi S2yqKqsTWjxvoJzSIr1OvJ2 XHBhcn0= CLINICAL HISTORY (test h4colKWpHIKbqKVyYaNoPFZ code = 3356) uUMXrc3qiZUZuePGfKiHvLy NcZnRuYmpcdWMxXGRlZmYwe 5wzy855vMGjz7rjFDJiVjV5 eOQgOZHqhUVrA837d4ubv0v smiExmBJ4EIBeCYX2EKveiu XjcaA4RJrslIItKyM3PEzmg fOoRIfigjCplnZiIwv4XXMw V108BEM2nZvyc6reNQQ8HTS uCJYoWaDgRc2brZItC027CU FtCVNGCRZgyEp0APEdfrIan bTuaAENs221U208e6ljPGSl zlJgnJeAghfnz3kxX060XDZ hcGVydzEyMjQwXHBhcGVyaD C9UUZnAP7qxfehVcDyCC6jy lzaUbGtXL8hacl5LkQaSP2d cmdiNzIwXGhlYWRlcnkwXGZ ui2YtdgxmYS0aB2Swy5P6aQ 9maXRcZGVmdGFiNzIwXGZvc g8sdBNeXRsvu9AzOAM4dsG2 fJHsfMRuNFYtEJ63Nugok5J iNafvMYG6JPYwtxXjw8Ejx9 dfPrRgcxCrL1uxB0DyJWBoT ODrJVNyNpXewoMll7Bst0Ke mPVbjMy7j4qoKTUiKNGvjBt xj9lvHJR8LDUhP2Z8oHMsp5 luIAsnBICdzDZ2bmasZGhaD EQvluW5bxoyXLzhILGlcWT9 bwdsCGkdCDHvPjY6hrhsNVc hKUMzOIQ2KXicd681UZK0ZH xzYmtwYWdlXHBnbmNvbnRcc GduZGVjXHBsYWluXHBsYWlu XGYwXGZzMjRccWxccGxhaW5 uHeNoLkDxOHktXV7cAAMeS9 ujzHKuMOHxTTLcV8gkUjTrq E2scSqiASblefSpQZCcXU1t CQLlINzmv2XqxxvzRNNmg1n hbmdpdGlzIFxwYXJ9 SPECIMEN SOURCE (test e0xvsFKiCQAywGSiQpVmNOQ code = 3377) hXMRsw5ziLOJkiPUqVoWvDi NcZnRuYmpcdWMxXGRlZmYwe 4xgo514jGRgi0qaYGQbEfO8 dUDwHQUeyFTrK698i7tuk2f qahKcsGT9QONwPSE8VUfvnz OgmlH1XZdczNCbDnS0HIzen kZpNWuyoaShtpXmFrc3QSJo V529QBR1cTlms5pqNLY2KXZ hKXBpYuVcPm3tpUXoA864GA WsIFQOPJRsgPr6JVRxpyQti dWkpWVRl339S093p6juDSPm xpNheSmBkakff9yfX291CIC hcGVydzEyMjQwXHBhcGVyaD U5DXNeCW4rlrjvBeErXW5bi hkrJsSzDN5dvdv4IgNyGE3g cmdiNzIwXGhlYWRlcnkwXGZ kx7KrgfbfGC3dU9Dnm9S5bV 9maXRcZGVmdGFiNzIwXGZvc e8ogQWnYImpb5DnOBM9jdJ3 vAYnsBTqKTDdMF13Hwxjc6U tDdebTDH3BWHxijGsu6Vog1 siHhMcclAqY3iiK9LnRIIlX PDfARLfSsMasvVnh8Bxc9Zz kWEosMe0h4urSFTxLWJpxIx ke9mpTLY6RWEhH4W4sFAbn8 qsCNbtVASdzKP5qvguOTleA TGdlfU9nejlWTevAEKixXT2 exfdLJgjQAAdUgY7nqhyOPk rQWKxKMZ5SKipe620RJG2UF xzYmtwYWdlXHBnbmNvbnRcc GduZGVjXHBsYWluXHBsYWlu XGYwXGZzMjRccWxccGxhaW5 mFvNtOnWxTQvwEO3cTMJoF7 xobTYgNYVsORZuI0zvEwKlk R8xkBudNJaypyMaXTmwsXac bGFkZGVyIFxwYXJ9 GROSS DESCRIPTION m0egiXLoDUQxhFOxGbOrZPQ (test code = 3366) nJNEqe6hcUTNmwLXdOgHjSn NcZnRuYmpcdWMxXGRlZmYwe 6lkv488eLQup8qgJLGtUaP7 tNLcFMEkiMIuG828ATXsHZs qt9lik6BjQIWdvSXzw6O0FL MVusvtfNs9xOasS16rf0C0Q bhuN5xlQDZkJFzzNACzPEvu hIKoKFL8DKQuIWK0GMnkesB thvL7KUrglHBxVmO6RKk3t2 lpbIdiUWAxTWA0o1edURnwv wNjDW4pvn0xoXe9b2cqfqMb XLLoNUAaeFIFUGNmF6OnwBo fVw9qpSa8oKvxNaiyXPN7Dh x5TL8vsz57saj9kBqqSKSco fhrBtF7TVkqIVVpwfvkLKy5 MFxtYXJnbDcyMFxtYXJncjc yMFxtYXJndDcyMFxtYXJnYj svXHfrEIJsRQU8XGrga547U XZ9TIowf3ubh6mjuBJcJte7 YHEfRrFgSapcRIkjl2Tza1e eLMHkds0iPTK8zTZnrSxtp7 T0nQNiHARaeBSfufOfQTQyD fX1QAemGS4kqb63TZPqVDG8 rb7vgSZerMlhznZdyXJwZJo wD3MtMYXme945QJCbZ7HtAT Nbw8I3oyCqFhMjXGBsyLH9x iZ8MDRmQUk8aWKyknX9cgMr tJEdN1elbF97FlYohNMtO4A zlL60StJkvXMhN2BftW28Xu EyzSSwG6UgoV72RoIqgCDgR PRlfKQgPe5kgRGhaOGwy8Up qTDiXCdvZ85ep703QEQyviB lR1cnwYHianayaGSqikcoJB xmczIwXHFsXHBsYWluXGYwX WDbNlOsmUogqK8fSkIzPeMx STDENNJvuGJeLMToshQcg0F tYWxpbiBsYWJlbGVkIHdpdG ggdGhlIHBhdGllbnQncyBuY J1dFGCjS1Sxa8Gti03vraKo DdAwKQJpVVDjZ8IgeXNtWGN yMFOyBLhuCPBpFXAlJIX8LI JvHJI5NVQkNiBzkUBxigZ0n R21h3s0NZ5vTY5sEUPmBNqe ChzoXFDlngJ8uFLjPCUqZY8 yVBNvEDzxEVcgrjl0wJI3GU AuNiBjbSBpbiBkaWFtZXRlc qCedXLyQ3tcZEPkxFI9mPNt NUDucH8aDZbeITYhpf4sWWI zgqT3YMuvd6kjzNdrzepox5 7gq6ZaQUZeWSGpnOLkypMyz SGlMGBkKKEavPYqpA7umrYz vfNqqRYrWRCuvF3nsfA8XOF sIGFwcHJveGltYXRlbHkgMS ErmXMqIhVuAG6tstPqYJqoE yBiaWxlIGFuZCBhIDAuNyB4 GSWhMNC7IHXfNcEbbZJtjUA kidAne6OdPWmnsJPqWGVoiY O0eONwQrRQwCAwIUZzypVcc i3oX3BoD6HeiTPpg2GsNFNn z1b1pJplVBLeALQetJR8iZQ sXAHwqV7kBGriJW01L51nMF PbzqR0VE2tiJIppI73RYHiX YS0fyJzKDQ3gDT1BFVpFHAg GHI5ASbaOC8cIZI5hhRlANK cUyErdDU3rUdbcc7fMfTnmb QvAO89MXDlypMep5VdwUboj cHgXVSfPLR0At9ztBPdMSCi wqNBYP4AXzpvp7j9eXC7fOY gwB8rCDGhN1mxeMybKKJ0F3 BxcSHzO7piJSfcAOKtTsOhM IBBF8JsONQroDXesZ== MICROSCOPIC q9prpTMmLUMabGZaPtTkGNQ DESCRIPTION (test code rRDOfv3zmDTOqgYXzFhLzEy = 3371) NcZnRuYmpcdWMxXGRlZmYwe 1jnl309aCNdy1cqNOIxErG4 xTYoUARxgRFeT560d8csy9h ybwKuiIX9UKLgYMB8VRwrch VudtF6OIbecQGrJzC8UAuuu qXfITjonwWzfbKxInt1NUFm F365MVG4vVyyf0mzQUC7FXL mOIDsDrVnWs3vrPKoB600TE ZbLJCJMHCcgQf8HHTfuyGwo jLocQQCp226W950k9qbAEKf glIffYsPinzer1sgT936ZNN hcGVydzEyMjQwXHBhcGVyaD W4XXOqJP7jktbwLbMuUD5ou rqeXgWiYV6czzi8XjNqFQ4c cmdiNzIwXGhlYWRlcnkwXGZ fk6XpxscrMW7kK0Jhl6U6wC 9maXRcZGVmdGFiNzIwXGZvc w9hqQIlJMvjo9BhRHM9srT5 iKSniZZlLUQeGV20Nfyvp4D vVzkqWBU4ILZhwnNzj3Hfg1 cyMkQsqsWwZ8ktU9LvNNUmE YJkHWHoZdGjpbDjr7Qvk7Ma aTIbnTp0v0zbIZKzHMZliOx uh9zjXIB0WQVsY5Z3qJIbt7 zbNKxiPYBeqRV9szowPPxoY NFfedX0chgrLUjjFETcrGB6 othiRBdeHDImFzW5bzdwAHm kYPIyJOP3APkyv462STW4RQ xzYmtwYWdlXHBnbmNvbnRcc GduZGVjXHBsYWluXHBsYWlu XGYwXGZzMjRccWxccGxhaW5 qBhDlFcYiWQimWZ6oMTNlI9 gmuQDfQDFkLITqI4ymZhFuq D7ujAocXHxjusDaLEKnzrUk ds0fUK3ehWSzaR== [facility] [id number] 16:36:00Surgical Pathology Report Case: [id number] Authorizing Provider: Nisa Martin MD Collected: 05/31/2019 11:10 AM Ordering Location: [facility] Received: 05/31/2019 11:34 AM SERVICES Pathologist: Aileen Salinas MD Specimen: Gallbladder A. GALL BLADDER, CHOLECYSTECTOMY: - CHRONIC CHOLECYSTITIS - CHOLELTHIASIS Signing Pathologist Direct Phone Line: [phone] signed by Aileen Salinas MD on 06/01/2019 at 4:36 [id number] diagnosis: Cholangitis Gallbladder Received in formalin labeled with the patient's name, accession number and "gallbladder" is a 10.5 x 3.9 x 1.7 cm previously opened gallbladder with a 0.2 cm in length x0.6 cm in diameter attached cystic duct. The serosa is yellow-pink, smooth and hyperemic. The specimen is opened to reveal approximately 1 ml of hemorrhagic bile and a 0.7 x 0.4 x 0.3 cm black bosselated calculus. There are no calculi lodged within the cystic duct. The mucosa is dominguez-yellow and trabeculated. The wall measures 0.2 cm thick. Property Utilization Manager sections are submitted in A1-A2, with the inked cystic duct margin in A1. PA/pl Performed.MRA head without IV contrast 2019-06-01 14:44:00Interface, External Ris In - 06/01/2019 2:48 PM CDTFINAL REPORT MR, BRAIN, WITHOUT CONTRAST, MR, MRA, NECK, WITHOUT IV CONTRAST, MR, MRA, BRAIN, WITHOUT CONTRAST INDICATION: Neuro deficit, acute, stroke suspectedIschemic Stroke Evaluation TECHNIQUE: Multiplanar, multisequence MR images of the brain. 3-D time of flight MRA of the cranial and cervical circulation. 2-D time of flight MRA of the neck. 3D MIP angiographic post-processing was performed. Stenosis evaluation utilized NASCET criteria. COMPARISON: Noncontrast brain CT of the same date FINDINGS: MRI BRAIN: Brain parenchyma is normal in morphology. Midline structures are normally developed. No restricted diffusion to suggest recent ischemic insult. No abnormal susceptibility. Scattered T2/FLAIR hyperintense foci within the periventricular and subcortical white matter are nonspecific, however, statistically represent chronic microvascular ischemic changes. No hydrocephalus. Orbits are within normal limits. No obstructive paranasal sinus disease. Additional findings: None. MRA BRAIN:Internal carotid arteries: Normal flow related enhancement without flow-limiting stenosisMiddle cerebral arteries: Normal flow related enhancement within the bilateral MCA M1-M2 segments without flow limiting stenosisAnterior cerebral arteries: Normal flow-related enhancement within the bilateral JORY A1-A2 segments without flow limiting stenosisBasilar system: Normal flow-related enhancement within the bilateral V4 segments and the basilar artery without flow-limiting stenosis Posterior cerebral arteries: Normal flow- related enhancement within the bilateral CONSTRUCTION EQUIPMENT MECHANIC P1-P2 segments without flow- limiting stenosisAdditional findings: None. MRA NECK:Common carotid arteries: Unremarkable. Bifurcations: No flow-limiting stenosis. Cervical internal carotid arteries: No flow limiting stenosis.Vertebral arteries: Origins are not well-seen. No flow limiting stenosis within the visualized cervical vertebral arterial segments. Limited assessment of the V3 segment secondary to noncontrast technique. IMPRESSION: No acute ischemia or parenchymal hemorrhage. No flow limiting stenosis in the major branch vessels of the cervical or cranial circ ulation. Signed: Trupti Husain MDReport Verified Date/Time: 06/01/2019 14:44:04 Reading Location:[address] Neuro [facility] [id number] 14:44:00Interface, External Ris In - 06/01/2019 2:48 PM CDTFINAL REPORT MR, BRAIN, WITHOUT CONTRAST, MR, MRA, NECK, WITHOUT IV CONTRAST, MR, MRA, BRAIN, WITHOUT CONTRAST INDICATION: Neuro deficit, acute, stroke suspectedIschemic Stroke Evaluation TECHNIQUE: Multiplanar, multisequence MR images of the brain. 3-D time of flight MRA of the cranial and cervical circulation. 2-D time of flight MRA of the neck. 3D MIP angiographic post-processing was performed. Stenosis evaluation utilized NASCET criteria. COMPARISON: Noncontrast brain CT of the same date FINDINGS: MRI BRAIN: Brain parenchyma is normal in morphology. Midline structures are normally developed. No restricted diffusion to suggest recent ischemic insult. No abnormal susceptibility. Scattered T2/FLAIR hyperintense foci within the periventricular and subcortical white matter are nonspecific, however, statistically represent chronic microvascular ischemic changes. No hydrocephalus. Orbits are within normal limits. No obstructive paranasal sinus disease. Additional findings: None. MRA BRAIN:Internal carotid arteries: Normal flow related enhancement without flow-limiting stenosisMiddle cerebral arteries: Normal flow related enhancement within the bilateral MCA M1-M2 segments without flow limiting stenosisAnterior cerebral arteries: Normal flow- related enhancement within the bilateral JORY A1-A2 segments without flow limi ting stenosisBasilar system: Normal flow-related enhancement within the bilateral V4 segments and the basilar artery without flow-limiting stenosis Posterior cerebral arteries: Normal flow-related enhancement within the bilateral CON[employer] EQUIP[employer] MECHANIC P1-P2 segments without flow-limiting stenosisAdditional findings: None. MRA NECK:Common carotid arteries: Unremarkable. Bifurcations: No flow- limiting stenosis. Cervical internal carotid arteries: No flow limiting stenosis.Vertebral arteries: Origins are not well-seen. No flow limiting stenosis within the visualized cervical vertebral arterial segments. Limited assessment of the V3 segment secondary to noncontrast technique. IMPRESSION: No acute ischemia or parenchymal hemorrhage. No flow limiting stenosis in the major branch vessels of the cervical or cranial circulation. Signed: Trupti Husain MDReport Verified Date/Time: 06/01/2019 14:44:04 Reading Location:[address] Neuro [facility] 2019-06-01 14:44:00Interface, External Ris In - 06/01/2019 2:48 PM CDTFINAL REPORT MR, BRAIN, WITHOUT CONTRAST, MR, MRA, NECK, WITHOUT IV CONTRAST, MR, MRA, BRAIN, WITHOUT CONTRAST INDICATION: Neuro deficit, acute, stroke suspectedIschemic Stroke Evaluation TECHNIQUE: Multiplanar, multisequence MR images of the brain. 3-D time of flight MRA of the cranial and cervical circulation. 2-D time of flight MRA of the neck. 3D MIP angiographic post-processing was performed. Stenosis evaluation utilized NASCET criteria. COMPARISON: Noncontrast brain CT of the same date FINDINGS: MRI BRAIN: Brain parenchyma is normal in morphology. Midline structures are normally developed. No restricted diffusion to suggest recent ischemic insult. No abnormal susceptibility. Scattered T2/FLAIR hyperintense foci within the periventricular and subcortical white matter are nonspecific, however, statistically represent chronic microvascular ischemic changes. No hydrocephalus. Orbits are within normal limits. No obstructive paranasal sinus disease. Additional findings: None. MRA BRAIN:Internal carotid arteries: Normal flow related enhancement without flow-limiting stenosisMiddle cerebral arteries: Normal flow related enhancement within the bilateral MCA M1-M2 segments without flow limiting stenosisAnterior cerebral arteries: Normal flow-related enhancement within the bilateral JORY A1-A2 segments without flow limiting stenosisBasilar system: Normal flow-related enhancement within the bilateral V4 segments and the basilar artery without flow-limiting stenosis Posterior cerebral arteries: Normal flow- related enhancement within the bilateral [employer]QU[employer] MECHANIC P1-P2 segments without flow- limiting stenosisAdditional findings: None. MRA NECK:Common carotid arteries: Unremarkable. Bifurcations: No flow-limiting stenosis. Cervical internal carotid arteries: No flow limiting stenosis.Vertebral arteries: Origins are not well-seen. No flow limiting stenosis within the visualized cervical vertebral arterial segments. Limited assessment of the V3 segment secondary to noncontrast technique. IMPRESSION: No acute ischemia or parenchymal hemorrhage. No flow limiting stenosis in the major branch vessels of the cervical or cranial circ ulation. Signed: Trupti Husain MDReport Verified Date/Time: 06/01/2019 14:44:04 Reading Location:[address] Neuro [facility], BRAIN, WITHOUT [id number] 14:44:00Reason for exam:- >Ischemic Stroke EvaluationFINAL REPORT MR, BRAIN, WITHOUT CONTRAST, MR, MRA, NECK, WITHOUT IV CONTRAST,MR, MRA, BRAIN, WITHOUT CONTRAST INDICATION: Neuro deficit, acute, stroke suspectedIschemic Stroke Ev aluation TECHNIQUE: Multiplanar, multisequence MR images of the brain. 3-D time of flight MRA of the cranial and cervical circulation. 2-D time of flight MRA of the neck. 3D MIP angiographic post-processing was performed. Stenosis evaluation utilized NASCET criteria. COMPARISON: Noncontrast brain CT of the same date FINDINGS: MRI BRAIN: Brain parenchyma is normal in morphology. Midline structures are normally developed. No restricted diffusion to suggest recent ischemic insult. No abnormal susceptibility. Scattered T2/FLAIR hyperintense foci within the periventricular and subcortical white matter are nonspecific, however, statistically represent chronic microvascular ischemic changes. No hydrocephalus. Orbits are within normal limits. No obstructive paranasal sinus disease. Additional findings: None. MRA BRAIN:Internal carotid arteries: Normal flow related enhancement without flow-limiting stenosisMiddle cerebral arteries: Normal flow related enhancement within the bilateral MCA M1-M2 segmen ts without flow limiting stenosisAnterior cerebral arteries: Normal flow-related enhancement within the bilateral JORY A1-A2 segments without flow limiting stenosisBasilar system: Normal flow-related enhancement within the bilateral V4 segments and the basilar artery without flow-limiting stenosis Posterior cerebral arteries: Normal flow-related enhancement within the bilateral [employer]QU[employer] MECHANIC P1- P2 segments without flow-limiting stenosisAdditional findings: None. MRA NECK:Common carotid arteries: Unremarkable. Bifurcations: No flow-limiting stenosis. Cervical internal carotid arteries: No flow limiting stenos is.Vertebral arteries: Origins are not well-seen. No flow limiting stenosis within the visualized cervical vertebral arterial segments. Limited assessment of the V3 segment secondary to noncontrast technique. IMPRESSION: No acute ischemia or parenchymal hemorrhage. No flow limiting stenosis in the major branch vessels of the cervical or cranial circulation. Signed: Trupti Husain MDReport Verified Date/Time: 06/01/2019 14:44:04 Reading Location: [address] Neuro Reading Room MR, MRA, NECK, WITHOUT IV [id number] 14:44:00Reason for exam:->Ischemic Stroke EvaluationFINAL REPORT MR, BRAIN, WITHOUT CONTRAST, MR, MRA, NECK, WITHOUT IV CONTRAST,MR, MRA, BRAIN, WITHOUT CONTRAST INDICATION: Neuro deficit, acute, stroke suspectedIschemic Stroke Evaluation TECHNIQUE: Multiplanar, multisequence MR images of the brain. 3-D time of flight MRA of the cranial and cervical circulation. 2-D time of flight MRA of the neck. 3D MIP angiographic post-processing was performed. Stenosis evaluation utilized NASCET criteria. COMPARISON: Noncontrast brain CT o f the same date FINDINGS: MRI BRAIN: Brain parenchyma is normal in morphology. Midline structures are normally developed. No restricted diffusion to suggest recent ischemic insult. No abnormal susceptibility. Scattered T2/FLAIR hyperintense foci within the periventricular and subcortical white matter are nonspecific, however, statistically represent chronic microvascular ischemic changes. No hydrocephalus. Orbits are within normal limits. No obstructive paranasal sinus disease. Additional findings: None. MRA BRAIN:Internal carotid arteries: Normal flow related enhancement without flow-limiting stenosisMiddle cerebral arteries: Normal flow related enhancement within the bilateral MCA M1- M2 segments without flow limiting stenosisAnterior cerebral arteries: Normal flow-related enhancement within the bilateral JORY A1-A2 segments without flow limiting stenosisBasilar system: Normal flow-related enhancement within the bilateral V4 segments and the basilar artery without flow-limiting stenosis Posterior cerebral arteries: Normal flow-related enhancement within the bilateral CON[employer] EQUIPMENT MECHANIC P1-P2 segments without flow-limiting stenosisAdditional findings: None. MRA NECK:Common carotid arteries: Unremarkable. Bifurcations: No flow- limiting stenosis. Cervical internal carotid arteries: No flow limiting stenos is.Vertebral arteries: Origins are not well-seen. No flow limiting stenosis within the visualized cervical vertebral arterial segments. Limited assessment of the V3 segment secondary to noncontrast technique. IMPRESSION: No acute ischemia or parenchymal hemorrhage. No flow limiting stenosis in the major branch vessels of the cervical or cranial circulation. Signed: Trupti Husain MDReport Verified Date/Time: 06/01/2019 14:44:04 Reading Location: [address] Neuro Reading Room MR, BRAIN, WITHOUT [id number] 14:44:00Reason for exam:->Ischemic Stroke EvaluationFINAL REPORT MR, BRAIN, WITHOUT CONTRAST, MR, MRA, NECK, WITHOUT IV CONTRAST,MR, MRA, BRAIN, WITHOUT CONTRAST INDICATION: Neuro deficit, acute, stroke suspectedIschemic Stroke Evaluation TECHNIQUE: Multiplanar, multisequence MR images of the brain. 3-D time of flight MRA of the cranial and cervical circulation. 2-D time of flight MRA of the neck. 3D MIP angiographic post-processing was performed. Stenosis evaluation utilized NASCET criteria. COMPARISON: Noncontrast brain CT o f the same date FINDINGS: MRI BRAIN: Brain parenchyma is normal in morphology. Midline structures are normally developed. No restricted diffusion to suggest recent ischemic insult. No abnormal susceptibility. Scattered T2/FLAIR hyperintense foci within the periventricular and subcortical white matter are nonspecific, however, statistically represent chronic microvascular ischemic changes. No hydrocephalus. Orbits are within normal limits. No obstructive paranasal sinus disease. Additional findings: None. MRA BRAIN:Internal carotid arteries: Normal flow related enhancement without flow-limiting stenosisMiddle cerebral arteries: Normal flow related enhancement within the bilateral MCA M1- M2 segments without flow limiting stenosisAnterior cerebral arteries: Normal flow-related enhancement within the bilateral JORY A1-A2 segments without flow limiting stenosisBasilar system: Normal flow-related enhancement within the bilateral V4 segments and the basilar artery without flow-limiting stenosis Posterior cerebral arteries: Normal flow-related enhancement within the bilateral CON[employer] EQU[employer] MECHANIC P1-P2 segments without flow-limiting stenosisAdditional findings: None. MRA NECK:Common carotid arteries: Unremarkable. Bifurcations: No flow- limiting stenosis. Cervical internal carotid arteries: No flow limiting stenos is.Vertebral arteries: Origins are not well-seen. No flow limiting stenosis within the visualized cervical vertebral arterial segments. Limited assessment of the V3 segment secondary to noncontrast technique. IMPRESSION: No acute ischemia or parenchymal hemorrhage. No flow limiting stenosis in the major branch vessels of the cervical or cranial circulation. Signed: Trupti Husain MDReport Verified Date/Time: 06/01/2019 14:44:04 Reading Location: [address] Neuro Reading Room POCT-GLUCOSE [id number] 11:51:00 Test Item Value Reference Range Interpretation Comments POC-GLUCOSE METER 262 mg/dL 70-110 H : TESTED A T [facility] 6720 (BEAKER) (test code = [facility] [place] [facility], 1538) [address]: Business Center Representative/Techni smita ID = [id number] for [facility] Manual [id number] 10:45:00 Test Item Value Reference Range Interpretation Comments % Neutros (test code = 75 % 281) % Lymphs (test code = 2 % 281) % Monos (test code = 11 % 2818) % Bands (test code = 12 % 0-10 H 2826) # Neutros (test code = 3.68 K/ul 1.78-5.38 2830) # Lymphs (test code = 0.10 K/ul 1.32-3.57 L 2831) # Monos (test code = 0.54 K/uL 0.3-0.82 2832) # Bands (test code = 0.59 K/uL 0-0.8 2840) Total Counted (test 100 code = 1351) WBC Morphology (test Normal code = 487) Giant Platelet (test Present code = 313) Large Platelet (test Present code = 2156) Anisocytosis (test code 1+ few = 961) Poikilocytes (test code 2+ moderate = 966) Elliptocytes (test code 2+ moderate = 962) Ovalocytes (test code = 2+ moderate 477) Edna Cells (test code = 2+ moderate 474) Platelet Conc (test Decreased code = 3438) SDAE (test code = SADE) Business Center Representative ID - Enriqueta DeleonTravis comments: Slide comments: Lab Interpretation Abnormal (test code = 55294-6) [facility] W/PLT COUNT & AUTO [id number] 10:45:00 Test Item Value Reference Range Interpretation Comments WHITE BLOOD CELL COUNT (BEAKER) 4.9 K/ L 3.5-10.5 (test code = 775) RED BLOOD CELL COUNT (BEAKER) 4.09 M/ L 4.63-6.08 L (test code = 761) HEMOGLOBIN (BEAKER) (test code = 11.3 GM/DL 13.7-17.5 L 410) HEMATOCRIT (BEAKER) (test code = 35.5 % 40.1-51.0 L 411) MEAN CORPUSCULAR VOLUME (BEAKER) 86.8 fL 79.0-92.2 (test code = 753) MEAN CORPUSCULAR HEMOGLOBIN 27.6 pg 25.7-32.2 (BEAKER) (test code = 751) MEAN CORPUSCULAR HEMOGLOBIN CONC 31.8 GM/DL 32.3-36.5 L (BEAKER) (test code = 752) RED CELL DISTRIBUTION WIDTH 17.8 % 11.6-14.4 H (BEAKER) (test code = 412) PLATELET COUNT (BEAKER) (test 108 K/CU MM 150-450 L code = 756) MEAN PLATELET VOLUME (BEAKER) 12.3 fL 9.4-12.4 (test code = 754) NUCLEATED RED BLOOD CELLS 0 /100 WBC 0-0 (BEAKER) (test code = 413) (CELLAVISION MANUAL DIFF)2019-06-01 10:45:00 Test Item Value Reference Range Interpretation Comments NEUTROPHILS - REL 75 % (CELLAVISION)(BEAKER) (test code = 2816) LYMPHOCYTES - REL 2 % (CELLAVISION)(BEAKER) (test code = 2817) MONOCYTES - REL 11 % (CELLAVISION)(BEAKER) (test code = 2818) BANDS - REL (CELLAVISION)(BEAKER) 12 % 0-10 H (test code = 2826) NEUTROPHILS - ABS 3.68 K/ul 1.78-5.38 (CELLAVISION)(BEAKER) (test code = 2830) LYMPHOCYTES - ABS 0.10 K/ul 1.32-3.57 L (CELLAVISION)(BEAKER) (test code = 2831) MONOCYTES - ABS 0.54 K/uL 0.30-0.82 (CELLAVISION)(BEAKER) (test code = 2832) BANDS - ABS (CELLAVISION)(BEAKER) 0.59 K/uL 0.00-0.80 (test code = 2840) TOTAL COUNTED (BEAKER) (test code 100 = 1351) WBC MORPHOLOGY (BEAKER) (test Normal code = 487) GIANT PLATELETS (BEAKER) (test Present code = 313) LARGE PLT(BEAKER) (test code = Present 2156) ANISOCYTOSIS (BEAKER) (test code 1+ few = 961) POIKILOCYTES (BEAKER) (test code 2+ moderate = 966) ELLIPTOCYTES (BEAKER) (test code 2+ moderate = 962) OVALOCYTES (BEAKER) (test code = 2+ moderate 477) EDNA CELLS (BEAKER) (test code = 2+ moderate 474) PLATELET CONCENTRATION Decreased (CELLAVISION)(BEAKER) (test code = 3438) Business Center Representative ID - Enriqueta Hopson comments: Slide comments:POCT-GLUCOSE METER 2019-06-01 07:14:00 Test Item Value Reference Range Interpretation Comments POC-GLUCOSE METER 208 mg/dL 70-110 H : TESTED A T [facility] (BEAKER) (test code = [place], 1538) [address]: Business Center Representative/Techni smita ID = [id number] for QUEEN DELGADO COMPREHENSIVE METABOLIC [id number] 05:19:00 Test Item Value Reference Range Interpretation Comments TOTAL PROTEIN 6.4 gm/dL 6.0-8.3 (BEAKER) (test code = 770) ALBUMIN (BEAKER) 3.2 g/dL 3.5-5.0 L (test code = 1145) ALKALINE PHOSPHATASE 128 U/L 40-150 (BEAKER) (test code = 346) BILIRUBIN TOTAL 4.5 mg/dL 0.2-1.2 H (BEAKER) (test code = 377) SODIUM (BEAKER) (test 139 meq/L 136-145 code = 381) POTASSIUM (BEAKER) 4.0 meq/L 3.5-5.1 (test code = 379) CHLORIDE (BEAKER) 109 meq/L 98-107 H (test code = 382) CO2 (BEAKER) (test 24 meq/L 22-29 code = 355) BLOOD UREA NITROGEN 18 mg/dL 7-21 (BEAKER) (test code = 354) CREATININE (BEAKER) 1.04 mg/dL 0.57-1.25 (test code = 358) GLUCOSE RANDOM 248 mg/dL 70-105 H (BEAKER) (test code = 652) CALCIUM (BEAKER) 7.9 mg/dL 8.4-10.2 L (test code = 697) AST (SGOT) (BEAKER) 287 U/L 5-34 H (test code = 353) ALT (SGPT) (BEAKER) 311 U/L 6-55 H (test code = 347) EGFR (BEAKER) (test 70 mL/min/1.73 ESTIMA RANGEL GFR IS code = 1092) sq m NOT ACCURATE CREATININE CLEARANCE IN PREDICTING GLOMERULAR FILTRATION RATE . ESTIMATED GFR I S NOT APPLICABLE FOR DIALYSIS PATIEN TS. Business Center Representative ID - ZHAO WSpecimen slightly [id number] 05:12:00 Test Item Value Reference Range Interpretation Comments MAGNESIUM (BEAKER) (test code = 2.0 mg/dL 1.6-2.6 627) Business Center Representative ID Daylin CHURCHILL WPOCT-GLUCOSE [id number] 00:40:00 Test Item Value Reference Range Interpretation Comments POC-GLUCOSE METER 253 mg/dL 70-110 H : TESTED A T [facility] 6720 (BEAKER) (test code = [facility], 1538) [address]: Business Center Representative/Techni smita ID = [id number] for CYNTHIA SERRA POCT-GLUCOSE [id number] 12:45:00 Test Item Value Reference Range Interpretation Comments POC-GLUCOSE METER 199 mg/dL 70-110 H : TESTED A T [facility] 6720 (BEAKER) (test code = [facility], 1538) [address]: Business Center Representative/Techni smita ID = [id number] for MULUGETA FLOWERS POCT-GLUCOSE [id number] 08:12:00 Test Item Value Reference Range Interpretation Comments POC-GLUCOSE METER 146 mg/dL 70-110 H : TESTED A T [facility] 6720 (BEAKER) (test code = [facility], 1538) [address]: Business Center Representative/Techni smita ID = [id number] for IKER MEEKS, [id number] 07:36:00 Test Item Value Reference Range Interpretation Comments ABO Grouping (test code = 2588) O Rh Factor (test code = 2589) [facility] [id number] 05:57:00 Test Item Value Reference Range Interpretation Comments TOTAL PROTEIN 6.1 gm/dL 6.0-8.3 (BEAKER) (test code = 770) ALBUMIN (BEAKER) 3.1 g/dL 3.5-5.0 L (test code = 1145) ALKALINE PHOSPHATASE 83 U/L 40-150 (BEAKER) (test code = 346) BILIRUBIN TOTAL 5.9 mg/dL 0.2-1.2 H (BEAKER) (test code = 377) SODIUM (BEAKER) (test 140 meq/L 136-145 code = 381) POTASSIUM (BEAKER) 3.4 meq/L 3.5-5.1 L (test code = 379) CHLORIDE (BEAKER) 112 meq/L 98-107 H (test code = 382) CO2 (BEAKER) (test 23 meq/L 22-29 code = 355) BLOOD UREA NITROGEN 16 mg/dL 7-21 (BEAKER) (test code = 354) CREATININE (BEAKER) 0.89 mg/dL 0.57-1.25 (test code = 358) GLUCOSE RANDOM 133 mg/dL 70-105 H (BEAKER) (test code = 652) CALCIUM (BEAKER) 7.7 mg/dL 8.4-10.2 L (test code = 697) AST (SGOT) (BEAKER) 252 U/L 5-34 H (test code = 353) ALT (SGPT) (BEAKER) 274 U/L 6-55 H (test code = 347) EGFR (BEAKER) (test 84 mL/min/1.73 ESTIMA RANGEL GFR IS code = 1092) sq m NOT ACCURATE CREATININE CLEARANCE IN PREDICTING GLOMERULAR FILTRATION RATE . ESTIMATED GFR I S NOT APPLICABLE FOR DIALYSIS PATIEN TS. Business Center Representative ID - PIAYA LSpecimen moderately ictericType and screen, automated 2019-05-31 05:42:00 Test Item Value Reference Range Interpretation Comments Ab Scrn (test code = 890-4) NEGATIVE echo1 [facility] W/PLT COUNT & AUTO [id number] 05:39:00 Test Item Value Reference Range Interpretation Comments WHITE BLOOD CELL COUNT (BEAKER) 5.5 K/ L 3.5-10.5 (test code = 775) RED BLOOD CELL COUNT (BEAKER) 4.05 M/ L 4.63-6.08 L (test code = 761) HEMOGLOBIN (BEAKER) (test code = 11.0 GM/DL 13.7-17.5 L 410) HEMATOCRIT (BEAKER) (test code = 34.9 % 40.1-51.0 L 411) MEAN CORPUSCULAR VOLUME (BEAKER) 86.2 fL 79.0-92.2 (test code = 753) MEAN CORPUSCULAR HEMOGLOBIN 27.2 pg 25.7-32.2 (BEAKER) (test code = 751) MEAN CORPUSCULAR HEMOGLOBIN CONC 31.5 GM/DL 32.3-36.5 L (BEAKER) (test code = 752) RED CELL DISTRIBUTION WIDTH 17.5 % 11.6-14.4 H (BEAKER) (test code = 412) PLATELET COUNT (BEAKER) (test code 89 K/CU MM 150-450 L = 756) MEAN PLATELET VOLUME (BEAKER) 11.3 fL 9.4-12.4 (test code = 754) NUCLEATED RED BLOOD CELLS (BEAKER) 0 /100 WBC 0-0 (test code = 413) (CELLAVISION MANUAL DIFF)2019-05-31 05:39:00 Test Item Value Reference Range Interpretation Comments NEUTROPHILS - REL 77 % (CELLAVISION)(BEAKER) (test code = 2816) LYMPHOCYTES - REL 1 % (CELLAVISION)(BEAKER) (test code = 2817) MONOCYTES - REL 7 % (CELLAVISION)(BEAKER) (test code = 2818) EOSINOPHILS - REL 3 % (CELLAVISION)(BEAKER) (test code = 2819) METAMYELOCYTES - REL 1 % 0-0 H (CELLAVISION)(BEAKER) (test code = 2821) BANDS - REL (CELLAVISION)(BEAKER) 11 % 0-10 H (test code = 2826) NEUTROPHILS - ABS 4.24 K/ul 1.78-5.38 (CELLAVISION)(BEAKER) (test code = 2830) LYMPHOCYTES - ABS 0.06 K/ul 1.32-3.57 L (CELLAVISION)(BEAKER) (test code = 2831) MONOCYTES - ABS 0.39 K/uL 0.30-0.82 (CELLAVISION)(BEAKER) (test code = 2832) EOSINOPHILS - ABS 0.17 K/uL 0.04-0.54 (CELLAVISION)(BEAKER) (test code = 2834) METAMYELOCYTES - ABS 0.06 K/uL 0.00-0.00 H (CELLAVISION)(BEAKER) (test code = 2836) BANDS - ABS (CELLAVISION)(BEAKER) 0.61 K/uL 0.00-0.80 (test code = 2840) TOTAL COUNTED (BEAKER) (test code 100 = 1351) WBC MORPHOLOGY (BEAKER) (test Normal code = 487) PLT MORPHOLOGY (BEAKER) (test Normal code = 486) OVALOCYTES (BEAKER) (test code = 2+ moderate 477) EDNA CELLS (BEAKER) (test code = 1+ few 474) ARTIFACT (CELLAVISION)(BEAKER) Present (test code = 3432) PLATELET CONCENTRATION Decreased (CELLAVISION)(BEAKER) (test code = 3438) Business Center Representative ID - [id number] ID - Karen Larson comments: Slide comments:POCT- GLUCOSE [id number] 05:37:00 Test Item Value Reference Range Interpretation Comments POC-GLUCOSE METER 131 mg/dL 70-110 H : TESTED A T [facility] 6720 (BEAKER) (test code = [facility], 1538) [address]: Business Center Representative/Techni smita ID = [id number] for LESLIE, GINI TTE POCT-GLUCOSE [id number] 21:20:00 Test Item Value Reference Range Interpretation Comments POC-GLUCOSE METER 278 mg/dL 70-110 H : TESTED A T [facility] 6720 (BEAKER) (test code = [facility], 1538) 139[address]: Business Center Representative/Techni smita ID = [id number] for LESLIE, GINI TTE POCT-GLUCOSE [id number] 18:43:00 Test Item Value Reference Range Interpretation Comments POC-GLUCOSE METER 208 mg/dL 70-110 H : TESTED A T [facility] 6720 (BEAKER) (test code = [facility], 1538) 87878: Business Center Representative/Techni smita ID = [id number] for IKER MEEKS ECG 12 [id number] 15:21:07Interface, External Ris In - 05/30/2019 3:21 PM CDTVentricular Rate 63 BPMAtrial Rate 63 BPMP-R Interval 132 msQRS Duration 96 msQ-T Interval 428 msQTC Calculation(Bazett) 437 msP [place] 37 degreesR [place] 4 degreesT [place] 19 degreesNormal sinus rhythm with sinus arrhythmiaRSR' pattern in Q0Bbzdcv ECGNo previous ECGs availableConfirmed by MD CAMELIA, JEROMY ([id number]) on 05/30/2019 3:21:04 [facility]FL[facility] [id number] 14:58:00 Reason for exam:->ABNORMAL IMAGINGFINAL REPORT A fluoroscopic unit was utilized for a procedure performed in the operating room. No interpretation was requested. Please refer to the operative report regarding findings. Please refer to PACS for patient radiation dose information. Signed: Linda Erwin MDReport Verified Date/Time: 05/30/2019 14:58:06 Reading Location: [address] Radiology Reading [facility] [id number] 14:58:00 Interface, External Ris In - 05/30/2019 3:00 PM CDTFINAL REPORT A fluoroscopic unit was utilized for a procedure performed in the operating room. No interpretation was requested. Please refer to the operative report regarding findings. Please refer to PACS for patient radiationdose information. Signed: Linda Erwin MDReport Verified Date/Time: 05/30/2019 14:58:06 Reading Location: [address] Radiology Reading Room [facility] W/PLT COUNT & AUTO [id number] 13:05:00 Test Item Value Reference Range Interpretation Comments WHITE BLOOD CELL COUNT (BEAKER) 9.8 K/ L 3.5-10.5 (test code = 775) RED BLOOD CELL COUNT (BEAKER) 4.09 M/ L 4.63-6.08 L (test code = 761) HEMOGLOBIN (BEAKER) (test code = 11.7 GM/DL 13.7-17.5 L 410) HEMATOCRIT (BEAKER) (test code = 35.6 % 40.1-51.0 L 411) MEAN CORPUSCULAR VOLUME (BEAKER) 87.0 fL 79.0-92.2 (test code = 753) MEAN CORPUSCULAR HEMOGLOBIN 28.6 pg 25.7-32.2 (BEAKER) (test code = 751) MEAN CORPUSCULAR HEMOGLOBIN CONC 32.9 GM/DL 32.3-36.5 (BEAKER) (test code = 752) RED CELL DISTRIBUTION WIDTH 17.5 % 11.6-14.4 H (BEAKER) (test code = 412) PLATELET COUNT (BEAKER) (test 111 K/CU MM 150-450 L code = 756) MEAN PLATELET VOLUME (BEAKER) 12.1 fL 9.4-12.4 (test code = 754) NUCLEATED RED BLOOD CELLS 0 /100 WBC 0-0 (BEAKER) (test code = 413) (CELLAVISION MANUAL DIFF)2019-05-30 13:05:00 Test Item Value Reference Range Interpretation Comments NEUTROPHILS - REL 83 % (CELLAVISION)(BEAKER) (test code = 2816) LYMPHOCYTES - REL 4 % (CELLAVISION)(BEAKER) (test code = 2817) MONOCYTES - REL 2 % (CELLAVISION)(BEAKER) (test code = 2818) BANDS - REL (CELLAVISION)(BEAKER) 11 % 0-10 H (test code = 2826) NEUTROPHILS - ABS 8.13 K/ul 1.78-5.38 H (CELLAVISION)(BEAKER) (test code = 2830) LYMPHOCYTES - ABS 0.39 K/ul 1.32-3.57 L (CELLAVISION)(BEAKER) (test code = 2831) MONOCYTES - ABS 0.20 K/uL 0.30-0.82 L (CELLAVISION)(BEAKER) (test code = 2832) BANDS - ABS (CELLAVISION)(BEAKER) 1.08 K/uL 0.00-0.80 H (test code = 2840) TOTAL COUNTED (BEAKER) (test code 100 = 1351) WBC MORPHOLOGY (BEAKER) (test Normal code = 487) PLT MORPHOLOGY (BEAKER) (test Normal code = 486) OVALOCYTES (BEAKER) (test code = 1+ few 477) EDNA CELLS (BEAKER) (test code = 2+ moderate 474) ARTIFACT (CELLAVISION)(BEAKER) Present (test code = 3432) PLATELET CONCENTRATION Decreased (CELLAVISION)(BEAKER) (test code = 3438) Business Center Representative ID - [id number] ID - Shannan Arzate comments: Slide comments: COMPREHENSIVE METABOLIC [id number] 11:55:00 Test Item Value Reference Range Interpretation Comments TOTAL PROTEIN 6.5 gm/dL 6.0-8.3 (BEAKER) (test code = 770) ALBUMIN (BEAKER) 3.4 g/dL 3.5-5.0 L (test code = 1145) ALKALINE PHOSPHATASE 86 U/L 40-150 (BEAKER) (test code = 346) BILIRUBIN TOTAL 7.6 mg/dL 0.2-1.2 H (BEAKER) (test code = 377) SODIUM (BEAKER) (test 140 meq/L 136-145 code = 381) POTASSIUM (BEAKER) 3.5 meq/L 3.5-5.1 (test code = 379) CHLORIDE (BEAKER) 112 meq/L 98-107 H (test code = 382) CO2 (BEAKER) (test 22 meq/L 22-29 code = 355) BLOOD UREA NITROGEN 15 mg/dL 7-21 (BEAKER) (test code = 354) CREATININE (BEAKER) 1.08 mg/dL 0.57-1.25 (test code = 358) GLUCOSE RANDOM 219 mg/dL 70-105 H (BEAKER) (test code = 652) CALCIUM (BEAKER) 7.6 mg/dL 8.4-10.2 L (test code = 697) AST (SGOT) (BEAKER) 247 U/L 5-34 H (test code = 353) ALT (SGPT) (BEAKER) 293 U/L 6-55 H (test code = 347) EGFR (BEAKER) (test 67 mL/min/1.73 ESTIMA RANGEL GFR IS code = 1092) sq m NOT ACCURATE CREATININE CLEARANCE IN PREDICTING GLOMERULAR FILTRATION RATE . ESTIMATED GFR I S NOT APPLICABLE FOR DIALYSIS PATIEN TS. Business Center Representative ID - FEB CSpecimen moderately [id number] 11:54:00 Test Item Value Reference Range Interpretation Comments Phosphorus (test code = 3.2 mg/dL 2.3-4.7 2777-1) SADE (test code = SADE) Business Center Representative ID - NICK C Lab Interpretation (test Normal code = 00682-5) [facility] AreaPHOSPHORUS2020-[facility] 11:54:00 Test Item Value Reference Range Interpretation Comments PHOSPHORUS (BEAKER) (test code = 3.2 mg/dL 2.3-4.7 604) Business Center Representative ID - FEB [id number] 11:54:00 Test Item Value Reference Range Interpretation Comments MAGNESIUM (BEAKER) (test code = 1.8 mg/dL 1.6-2.6 627) Business Center Representative ID - FEB CLactic acid, [id number] 11:48:00 Test Item Value Reference Range Interpretation Comments Lactate, Venous (test 1.74 mmol/L 0.5-2.2 Specim en code = 2872) slightly hemolyzed SADE (test code = SADE) Business Center Representative ID - NICK Padillaimemayito moderately icteric Lab Interpretation Normal (test code = 14861-8) [facility] AreaLACT[facility] ACID, [id number] 11:48:00 Test Item Value Reference Range Interpretation Comments LACTATE BLOOD VENOUS 1.74 mmol/L 0.50-2.20 Specime n slightly (2) (BEAKER) (test hemolyzed code = 2872) Business Center Representative ID - NICK Padillaimen moderately ictericPT/[id number] 11:44:00 Test Item Value Reference Interpretation Comments Range Protime (test code = 16.9 See_Comment H [Autom ated 7202-2) message] The system which generated this result transmitted reference range : 11.9 - 14.2 seconds. The reference range was not used to interpret this result as normal/abnormal . INR (test code = 1.4 See_Comment [Automated 8251-6) message] The system which generated this result transmitted reference range : <=5.9. The reference range was not used to interpret this result as normal/abnormal . PTT (test code = 33.7 See_Comment [Automated 51390-1) message] The system which generated this result transmitted reference range : 22.5 - 36.0 seconds. The reference range was not used to interpret this result as normal/abnormal . SADE (test code = Effective 07/05/2018: SADE) PT Reference Range ChangeNew: 11.9-14.2 Previous: 11.7-14.7 RECOMMENDED COUMADIN/WARFARIN INR THERAPY RANGESSTANDARD DOSE: 2.0-3.0 Includes: PROPHYLAXIS for venous thrombosis, systemic embolization; TREATMENT for venous thrombosis and/or pulmonary embolus.HIGH RISK: Target INR is 2.5-3.5 for patients wiht mechanical heart valves. Lab Interpretation Abnormal (test code = 55521-3) [facility] AreaPT/[id number] 11:44:00 Test Item Value Reference Range Interpretation Comments PROTIME (BEAKER) (test code = 16.9 seconds 11.9-14.2 H 759) INR (BEAKER) (test code = 370) 1.4 <=5.9 PARTIAL THROMBOPLASTIN TIME 33.7 seconds 22.5-36.0 (BEAKER) (test code = 760) Effective 07/05/2018: PT Reference Range ChangeNew: 11.9-14.2 Previous: 11.7- 14.7RECOMMENDED COUMADIN/WARFARIN INR THERAPY RANGESSTANDARD DOSE: 2.0-3.0 Includes: PROPHYLAXIS for venous thrombosis, systemic embolization; TREATMENT for venous thrombosis and/or pulmonary embolus.HIGH RISK: Target INR is2.5-3.5 for patients wiht mechanical heart valves.POCT-GLUCOSE [id number] 08:39:00 Test Item Value Reference Range Interpretation Comments POC-GLUCOSE METER 194 mg/dL 70-110 H : TESTED A T [facility] 6720 ([employer]) (test code = [employer] [facility], 1538) 287[address]: Business Center Representative/Techni smita ID = [id number] for IKER MEEKS POCT-GLUCOSE [id number] 08:25:00 Test Item Value Reference Range Interpretation Comments POC-GLUCOSE METER 186 mg/dL 70-110 H : TESTED A T [facility] 6720 ([employer]) (test code = [employer] [facility], 1538) 837[address]: Business Center Representative/Techni smita ID = [id number] for HARSH SPARROWIKER
[2020-05-12 19:02] LABS: Hematocrit 46.9 % (39.6-49.0); Potassium 3.9 mmol/L (3.5-5.1); RBC Red Blood Cell Count 5.17 M/uL (4.33-5.43)
[2020-05-12 19:03] LABS: Absolute Lymphocytes (CBC) 0.8 K/uL (0.7-4.9); Basophils % 0.7 % (0-1.3); Lymphocytes % 17.4 % (15.3-44.8); MPV 9.4 fL (7.6-11.3)
[2020-05-12 19:05] LABS: Protime INR 1.13
--- NOTE | 2020-05-12 19:11 | RAD REPORT ---
EXAM DESCRIPTION: US - Extrem Venous W Compress Jhonny - 05/12/2020 6:38 pm CLINICAL HISTORY: PAIN Bilateral leg edema and swelling. COMPARISON: No comparisons TECHNIQUE: Real-time sonographic interrogation of the left and right lower extremity deep venous sys tems was performed. FINDINGS: Thrombus is present in both popliteal veins. The findings are more acute appearing on the right. Elsewhere, no DVT seen. IMPRESSION: Bilateral popliteal vein DVT.
--- NOTE | 2020-05-12 19:53 | RAD REPORT ---
EXAM DESCRIPTION: US - Lower Extremity Arterial Bilat - 05/12/2020 6:38 pm CLINICAL HISTORY: eval for arterial insufficiency;Pain Leg pain, claudication COMPARISON: No comparisons TECHNIQUE: Bilateral lower extremity arterial Doppler examination was performed with ronnie carmen FINDINGS: The right common femoral artery to popliteal artery is triphasic. The right posterior tibial and dors kalina pedis artery is monophasic. The left lower extremity arterial system is triphasic to biphasic throughout. No occlusion is seen. IMPRESSION: Moderate infrapopliteal peripheral vascular disease is seen on the right.
--- NOTE | 2020-05-12 21:57 | ER ---
Nurse's Notes [facility] Name: Kuldip Schaffer Jr Age: 75 yrs Sex: Male : 1945 Arrival Date: 05/12/2020 Time: 13:31 Bed 23 Private MD: Diagnosis: Bilateral politeal veins DVT. Moderate infrapoliteal PAD Presentation: 05/12 13:45 Chief complaint: Patient states: R leg swelling for 3-4 months. L leg started swelling ll1 1 month ago. No fever. Calf area's are red, hot to touch, and swollen. Coronavirus screen: Client denies travel out of the [place] in the last 14 days. At this time, the client does not indicate any symptoms associated with coronavirus-19. Ebola Screen: Patient denies travel to an Ebola-affected area in the 21 days before illness onset. Initial Sepsis Screen: Does the patient meet any 2 criteria? No. Patient's initial sepsis screen is negative. Does the patient have a suspected source of infection? No. Patient's initial sepsis screen is negative. Risk Assessment: Do you want to hurt yourself or someone else? Patient reports no desire to harm self or others. Onset of symptoms was February 08, 2020. 13:45 Method Of Arrival: Ambulatory ll1 13:45 Acuity: WILD 3 ll1 Historical: - Allergies: 13:48 BEEF CONTAINING PRODUCTS; ll1 - PMHx: 13:48 Diabetes - IDDM; gal bladder problems; Hypertension; ll1 - PSHx: 13:48 left foot; Cholecystectomy; ll1 - Immunization history:: Flu vaccine is up to date. - Social history:: Smoking status: Patient denies any tobacco usage or history of. - Family history:: not pertinent. - Hospitalizations: : No recent hospitalization is reported. Screenin:27 Abuse screen: Denies threats or abuse. Nutritional screening: No deficits noted. fu Tuberculosis screening: No symptoms or risk factors identified. Fall Risk None identified. Assessment: 19:23 General: Appears in no apparent distress. Behavior is calm, cooperative, appropriate fu for age, Denies fever. Pain: Denies pain. Neuro: Level of Consciousness is awake, alert, obeys commands, Oriented to person, place, time, situation, Moves all extremities. Gait is steady, Speech is normal. Cardiovascular: Denies chest pain, nausea, syncope, vomiting. Respiratory: Respiratory effort is even, unlabored, Respiratory pattern is regular, Denies cough, shortness of breath. Derm: Skin has lesions on bilateral legs Skin is red, Skin temperature is hot. 21:37 Reassessment: Patient and/or family updated on plan of care and expected duration. Pain fu level reassessed. Patient is alert, oriented x 3, equal unlabored respirations, skin warm/dry/pink. 23:50 Reassessment: Patient and/or family updated on plan of care and expected duration. Pain fu level reassessed. Patient is alert, oriented x 3, equal unlabored respirations, skin warm/dry/pink. awaiting COVID test results. 05/13 01:00 Reassessment: Patient and/or family updated on plan of care and expected duration. Pain fu level reassessed. Patient is alert, oriented x 3, equal unlabored respirations, skin warm/dry/pink. Vital Signs: 05/12 13:45 BP 137 / 78; Pulse 75; Resp 16; Temp 97.4; Pulse Ox 96% ; Weight 104.33 kg; Height 5 ll1 ft. 9 in. (175.26 cm); Pain 3/10; 20:08 BP 150 / 89; Pulse 73; Resp 18; Temp 98.7(O); Pulse Ox 97% on R/A; Pain 0/10; fu 21:00 BP 152 / 96; Pulse 70; Resp 18; Pulse Ox 96% on R/A; Pain 0/10; fu 22:00 BP 123 / 61; Pulse 73; Resp 17; Pulse Ox 100% on R/A; Pain 0/10; fu 23:35 BP 169 / 83; Pulse 64; Resp 18; Pulse Ox 98% on R/A; Pain 0/10; fu 13:45 Body Mass Index 33.96 (104.33 kg, 175.26 cm) ll1 ED Course: 13:31 Patient arrived in ED. mr 13:47 Triage completed. ll1 13:48 Arm band placed on Patient notified of wait time. ll1 17:34 Dieter Joseph MD is Attending Physician. rn 17:58 Sindi Myrick RN is Primary Nurse. iw 18:38 US Extremity Venous W Compression Jhonny In Process Unspecified. EDMS 18:38 Lower Extremity Arterial Bilat US In Process Unspecified. EDMS 18:40 Initial lab(s) drawn, by me. Inserted saline lock: 20 gauge in right antecubital area, iw using aseptic technique. Blood collected. 19:20 Primary Nurse role handed off by Sindi Myrick RN 19:20 Cullen العلي, RN is Primary Nurse. fu 19:28 Patient has correct armband on for positive identification. Placed in gown. Bed in low fu position. Call light in reach. 19:30 Attending Physician role handed off by Dieter Joseph MD pkl 19:30 Edilson Cabrera MD is Attending Physician. pkl 21:55 Carlos A Keane is Hospitalizing Provider. pkl 22:20 COVID swab sent to lab. fu 23:28 Espinoza Breen MD is Hospitalizing Provider. pkl 05/13 00:06 No provider procedures requiring assistance completed. fu 00:51 Patient admitted, IV remains in place. fu Administered Medications: 05/12 23:39 Drug: Lovenox (enoxaparin) 90 mg Route: Sub-Q; Site: abdomen; fu 05/13 00:06 Follow up: Response: No adverse reaction fu Outcome: 05/12 21:56 Decision to Hospitalize by Provider. pkl 23:30 Decision to Hospitalize by Provider. pkl 05/13 00:50 Admitted to Med/surg accompanied by tech, room 212, Report called to Rosey WOO fu Condition: stable Instructed on the need for admit, Demonstrated understanding of instructions. 01:08 Patient left the ED. mw2 Signatures: Dispatcher [employer] EDMS Edilson Cabrera MD MD [facility] Sindi Myrick RN RN Dieter Joseph MD MD rn Umadhay, Felix, RN RN Mark Camarena mw2 Digna Torres RN RN ll1
--- NOTE | 2020-05-12 21:57 | EDPHYS ---
Physician Documentation [facility] Name: Kuldip Schaffer Jr Age: 75 yrs Sex: Male : 1945 Arrival Date: 05/12/2020 Time: 13:31 Bed 23 Private MD: ED Physician Edilson Cabrera HPI: 05/12 17:55 This 75 yrs old Male presents to ER via Ambulatory with complaints of Leg rn Swelling and pain. 17:55 Reports a few months of lower ext swelling and pain, worse with exertion, improves with rn rest, has only had pain at rest once. No fever. No trauma. Reports his pcp has ordered both arterial and venous ultrasounds that did not show blockage and recommended full dose aspirin which he is not taking.. Onset: The symptoms/episode began/occurred 3 month(s) ago. Severity of symptoms: At their worst the symptoms were mild in the emergency department the symptoms are unchanged. The patient has experienced similar episodes in the past. The patient has not recently seen a physician. Historical: - Allergies: 13:48 BEEF CONTAINING PRODUCTS; ll1 - PMHx: 13:48 Diabetes - IDDM; gal bladder problems; Hypertension; ll1 - PSHx: 13:48 left foot; Cholecystectomy; ll1 - Immunization history:: Flu vaccine is up to date. - Social history:: Smoking status: Patient denies any tobacco usage or history of. - Family history:: not pertinent. - Hospitalizations: : No recent hospitalization is reported. ROS: 17:55 Constitutional: Negative for fever, chills, and weight loss, Eyes: Negative for injury, rn pain, redness, and discharge, Neck: Negative for injury, pain, and swelling, Cardiovascular: Negative for chest pain, palpitations Respiratory: Negative for shortness of breath, cough, wheezing, and pleuritic chest pain, Abdomen/GI: Negative for abdominal pain, nausea, vomiting, diarrhea, and constipation, Back: Negative for injury and pain, MS/Extremity: Negative for injury and deformity, Skin: + redness to bilateral lower extremities Neuro: Negative for headache, weakness, numbness, tingling, and seizure. Exam: 17:55 Constitutional: This is a well developed, well nourished patient who is awake, alert, rn and in no acute distress. Head/Face: Normocephalic, atraumatic. Eyes: Pupils equal round and reactive to light, extra-ocular motions intact Cardiovascular: Regular rate and rhythm. No pulse deficits. Respiratory: No increased work of breathing, no retractions or nasal flaring. Abdomen/GI: soft, non-tender Skin: Warm, dry, + erythematous pre-tibial regions with darker skin changes of ankles and feet, no cyanosis MS/ Extremity: Non-palpaable bilateral pedal pulses with cap refill 3-4 seconds, 2+ pitting edema, RLE>LLE circumference. No open wounds noted. Neuro: Awake and alert, GCS 15 Vital Signs: 13:45 BP 137 / 78; Pulse 75; Resp 16; Temp 97.4; Pulse Ox 96% ; Weight 104.33 kg; Height 5 ll1 ft. 9 in. (175.26 cm); Pain 3/10; 20:08 BP 150 / 89; Pulse 73; Resp 18; Temp 98.7(O); Pulse Ox 97% on R/A; Pain 0/10; fu 21:00 BP 152 / 96; Pulse 70; Resp 18; Pulse Ox 96% on R/A; Pain 0/10; fu 22:00 BP 123 / 61; Pulse 73; Resp 17; Pulse Ox 100% on R/A; Pain 0/10; fu 23:35 BP 169 / 83; Pulse 64; Resp 18; Pulse Ox 98% on R/A; Pain 0/10; fu 13:45 Body Mass Index 33.96 (104.33 kg, 175.26 cm) ll1 MDM: 17:34 Patient medically screened. rn 21:57 Data reviewed: vital signs, nurses notes, lab test result(s), EKG, radiologic studies. pkl 05/12 17:51 Order name: CBC with Diff; Complete Time: 19:34 rn 05/12 17:51 Order name: Basic Metabolic Panel; Complete Time: 19:34 rn 05/12 17:51 Order name: Protime (+inr); Complete Time: 19:34 rn 05/12 17:51 Order name: Ptt, Activated; Complete Time: 19:34 rn 05/12 17:51 Order name: Procalcitonin; Complete Time: 21:47 rn 05/12 21:38 Order name: COVID-19 : Document "Date of Symptom Onset" if Symptomatic. mw2 05/12 16:40 Order name: US Extremity Venous W Compression Jhonny; Complete Time: 19:34 kb 05/12 17:51 Order name: Lower Extremity Arterial Bilat US; Complete Time: 21:47 rn 05/12 17:51 Order name: IV Start; Complete Time: 18:40 rn 05/12 23:49 Order name: Consistent Carb (ADA) 1800 Evaristo EDMS 05/13 00:35 Order name: SARS-COV-2 RT PCR; Complete Time: 08:22 EDMS Administered Medications: 23:39 Drug: Lovenox (enoxaparin) 90 mg Route: Sub-Q; Site: abdomen; fu 05/13 00:06 Follow up: Response: No adverse reaction fu Disposition: 05/12/20 23:30 Hospitalization ordered by Espinoza Breen for Observation. Preliminary diagnosis is Bilateral politeal veins DVT. Moderate infrapoliteal PAD. - Bed requested for Telemetry/MedSurg (observation). - Status is Observation. mw2 - Condition is Stable. - Problem is new. - Symptoms are unchanged. Signatures: Dispatcher [employer] EDMS Edilson Cabrera MD MD [facility] Dieter Joseph MD MD rn Garcia, Cindy, RN RN Cullen العلي RN RN Mark Camarena 2 Digna Torres RN RN 1 Corrections: (The following items were deleted from the chart) 05/12 23:28 21:56 Hospitalization Ordered by Carlos A Keane for Observation. Preliminary diagnosis pkl is Bilateral politeal veins DVT. moderate infrapopliteal PAD. Bed requested for Telemetry/MedSurg (observation). Status is Observation. Condition is Stable. Problem is new. Symptoms are unchanged. pk 23:56 23:30 Hospitalization Ordered by Espinoza Breen MD for Observation. Preliminary diagnosis cg is Bilateral politeal veins DVT. Moderate infrapoliteal PAD. Bed requested for Telemetry/MedSurg (observation). Status is Observation. Condition is Stable. Problem is new. Symptoms are unchanged. pkl 05/13 01:08 04 23:56 05/12/2020 23:30 Hospitalization Ordered by Espinoza Breen MD for mw2 Observation. Preliminary diagnosis is Bilateral politeal veins DVT. Moderate infrapoliteal PAD. Bed requested for Telemetry/MedSurg (observation). Status is Observation. Condition is Stable. Problem is new. Symptoms are unchanged. cg
[2020-05-12] MEDS ORDERED: ENOXAPARIN 100 MG/ML SYR SQ ONE (23:49)
[2020-05-13 01:52] VITALS: BMI 33.3
[2020-05-13] MEDS: NA CHLORIDE 0.9% 1,000 ML IV SCH ×2 (02:10→09:45)
[2020-05-13 04:38] VITALS: O2SAT 96
[2020-05-13] MEDS ORDERED: ENOXAPARIN 100 MG/ML SYR SQ SCH (11:00)
[2020-05-13 17:08] VITALS: BP 150/82; TEMP 98.1
--- NOTE | 2020-05-13 21:30 | P.SSS ---
Patient History Date of Service: 05/13/20 Reason for admission: EDEMA OF LEGS History of Present Illness: MR. MIRANDA HAS EDEMA OF LEGS FOR MONTHS PER HIM. HE NEVER MENTIONED BEFORE. HE HAS NO CHEST PAIN. HE HAS HAD GALL BLADDER SEPSIS LAST YEAR AND WAS IN [facility] FOR IT. HE ALSO HAS KNOWN PVD AND HAS BEEN TO [facility]. HE HAS BILATERAL DEEP VEIN THROMBUS. HE IS CLINICALLY STABLE FOR DISCHARGE. WE CHECKED WITH PHARMACY AND HIS INSURANCE WILL NOT COVER BOTH ELIUQIS OR XARELTO. I HAD HIM IMPROVEMENT LEADER ELIQUIS SAMPLES FROM OFFICE SO WE CAN DO OUTPATIENT TREATMENT FOR THIS ASYMPTOMATIC ISSUE. HE RECEIVED TWO DOSES OF LOVENOX IN [facility] SINCE LAST NIGHT. Allergies No Known Allergies Allergy (Unverified 05/13/20 00:11) Home Medications: Unobtainable 05/13/20 - Past Medical/Surgical History Has patient received pneumonia vaccine in the past: Yes Diabetic: Yes -: DM -: HTN -: CHOLECYSTECTOMY, GALLBLADDER PROBLEM LEF FOOT SURGERRY - Social History Smoking Status: Never smoker Alcohol use: No CD- Drugs: No Caffeine use: Yes Place of Residence: Home Review of Systems 10-point ROS is otherwise unremarkable Physical Examination - Vital Signs Temperature: 98.1 F Blood Pressure: 150/82 Pulse: 81 Respirations: 16 Pulse Ox (%): 94 - Physical Exam General: Alert, In no apparent distress, Oriented x3 HEENT: Atraumatic, PERRLA, Mucous membr. moist/pink, EOMI, Sclerae nonicteric Neck: Supple, 2+ carotid pulse no bruit, No LAD, Without JVD or thyroid abnormality Respiratory: Clear to auscultation bilaterally, Normal air movement Cardiovascular: Regular rate/rhythm, Normal S1 S2, Edema Gastrointestinal: Normal bowel sounds, No tenderness Musculoskeletal: No tenderness Integumentary: No rashes Neurological: Normal gait, Normal speech, Normal strength at 5/5 x4 extr, Normal tone, Normal affect Lymphatics: No axilla or inguinal lymphadenopathy - Diagnosis (Problem(s)) (1) Deep venous thrombosis Status: Acute Plan: I WILL GIVE HIM 3 MONTHS OF ELIUQIS FOR THIS PROVOKED DVT. HS IS CLINICALLY STABLE. Qualifiers: DVT location: lower extremity (2) PVD (peripheral vascular disease) Status: Chronic Plan: HE WILL FU WITH [facility] OR A VASCULAR FACILITY - Disposition Disposition: ROUTINE DISCHARGE
[2020-05-14] MEDS ORDERED: ENOXAPARIN 100 MG/ML SYR SQ SCH (11:00)
== END 2020-05-13 15:38 | disposition home or self-care (01) ==
LOC: ER 13:25 → ERHOLD 23:42 → 2ND 05-13 00:54
PROVIDERS: ADMIT Internal Medicine; ATTEND Internal Medicine
DX: I82.433 Acute embolism and thrombosis of popliteal vein, bilateral (principal); I73.9 Peripheral vascular disease, unspecified; E11.9 Type 2 diabetes mellitus without complications; I10 Essential (primary) hypertension; Z90.49 Acquired absence of other specified parts of digestive tract; Z91.018 Allergy to other foods; Z20.822 Contact with and (suspected) exposure to COVID-19
CPT/HCPCS: 85025; 80048; 36415; 85610; 82947 ×3; 85730; 84145; 93925; 93970; U0003; J1650 ×2; J7030 ×2; 96372; 99285; G0378

== ENCOUNTER 2021-12-24 13:16 | Inpatient (IN) | payer OTHER ==
--- OUTSIDE RECORDS SUMMARY | 2021-12-24 13:21 | XMS REPORT | Continuity of Care Document ---
:1945 Author Organization [facility] t Address 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 00:00: Medica l without without 00 Center complicati complicati on, with on, with long-term long-term current current use of use of insulin insulin Hypertensi Hypertensi Disease Active [facility] Allergies, Adverse Reactions, Alerts Allergy Allergy Status Severity Reaction(s) Onset Inactive Treating Comm ents Source Name Type Date Date Clinician NO KNOWN Allergy Active [facility] Family History Family Member Diagnosis Comments Start Date Stop Date Source Natural brother Diabetes [facility] Natural father Diabetes [facility] Natural father Heart disease [facility] Maternal aunt Diabetes [facility] Maternal grandfather Diabetes [facility] Maternal grandmother Diabetes [facility] Maternal uncle Diabetes [facility] Natural mother Diabetes [facility] Paternal aunt Diabetes [facility] Paternal grandfather Diabetes [facility] Paternal grandmother Diabetes [facility] Paternal uncle Diabetes [facility] Natural sister Diabetes [facility] Social History Social Habit Start Date Stop Date Quantity Comments Source History SDDC [facility] Alcohol Std Drinks [facility] [place] History SDOH [facility] Alcohol Binge [facility] [address] Alcohol intake 2019-05-31 2019-05-[address] [facility] 00:[facility]00 00:00:00 non-drinker of Medical Ce nter alcohol (finding) Alcohol Comment 2019-05-30 2019-05-[address] [facility]00 drink[facility] ,quit Medical [facility] ter drinking about 30 yrs ago Tobacco use and 2019-05-30 2019-05-[address] [facility] exposure 00:00:00 00:00:00 [facility] History SDOH 2019-05-30 2019-05-[address] [facility] Alcohol Frequency 00:00:00 00:00:00 [facility] Tobacco Comment 2019-05-30 2019-05-30 quit [address] [facility] 00:00:00 00:00:00 [facility] Sex Assigned At [birth year] [facility] Jazzy yoselyns 00:00:00 00:00:00 [facility] Smoking Status Start Date Stop Date Source Former smoker 2019-05-30 00:00:00 2019-05-30 00:00:00 [facility] L es [facility] Medications Ordered Filled Start Stop Current Ordering Indication Dosage Frequency Signature Comments Components Source Medication Medication Date Date Medication? Clinician (SIG) Name Name insulin Yes type [address] aspart 4-25 diabetes subcutaneo Lucy protamine-i 14:31: mellitus usly 3 Medical nsulin 29 (three) Center aspart times (NOVOLOG daily MIX 70/30) before 100 unit/mL meals. (70-30) injection Procedures This patient has no known procedures. Plan of Care Planned Activity Planned Date Details Comments Source Future Scheduled 2021-10-08 INFLUENZA VACCINE (#1) [facility] 00:00[facility]00 [code = INFLUENZA Medical Ce nter VACCINE (#1)] Future Scheduled 2021-02-[address] [facility] Test 00:00:00 (12+) [code = Medical Center DEPRESSION SCREENING (12+)] Future Scheduled 2021-02-07 FALLS RISK SCREENING [facility] Test 00:00:00 [code = FALLS RISK Medical C enter SCREENING] Future Scheduled 2019-12-[address] [facility] Test 00:00:00 measurement Medical Center (procedure) [code = 44056685] Future Scheduled 2011-02-[address] [facility] Test 00:00:00 WELLNESS (YEAR 2 or Medical Center FIRST YEAR if no IPPE) [code = MEDICARE ANNUAL WELLNESS (YEAR 2 or FIRST YEAR if no IPPE)] Future Scheduled 1995 SHINGLES VACCINES ([address] [facility] Test 00:00:00 of 2) [code = SHINGLES Medic al Center VACCINES (1 of 2)] Future Scheduled 1964-02-25 DTAP/TDAP/TD VACCINES [facility] 00:00:00 (1 - Tdap) [code = Medical C enter DTAP/TDAP/TD VACCINES (1 - Tdap)] Future Scheduled 1963 HEPATITIS C SCREENING [facility] 00:00:00 [code = HEPATITIS C Medical Center SCREENING] Future Scheduled 1955 DIABETIC EYE EXAM [facility] Test 00:00:00 [code = DIABETIC EYE Medical Center EXAM] Future Scheduled [address] [facility] Test 00:00:00 examination Medical Center (regime/therapy) [code = 944714512] Future Scheduled 1955 Urine screening for [facility] Test 00:00:00 protein (procedure) Medical Center [code = 612541700] Future Scheduled 1951 PNEUMOCOCCAL 65+ YRS [facility] Test 00:00:00 (1 - PCV) [code = Medical Ce nter PNEUMOCOCCAL 65+ YRS (1 - PCV)] Future Scheduled 1945 COVID-19 VACCINE (#1) [facility] 00:00:00 [code = COVID-[address] VACCINE (#1)] Encounters Start End Encounter Admission Attending Care Care Encounter Source Date/Time Date/Time Type Type Clinicians Facility Department ID 2021-03-04 [facility] [id number] Common 13:18:30 Espino[facility] [id number] [facility] 2019-05-30 Inpatient [facility] [id number] SLE 07:44:00 [id number] Results Test Description Test Time Test Comments Results Result Comments Source BLOOD CULTURE 2019-06-04 13:00:00 Test Item Value Reference Range Interpretation Comme nts CULTURE (BEAKER) (test code = 1095) No growth in 5 days BLOOD [id number] 13:00:00 Test Item Value Reference Range Interpretation Comments CULTURE (BEAKER) (test No growth in 5 days code = 1095) POCT-GLUCOSE [id number] 12:07:00 Test Item Value Reference Range Interpretation Comments POC-GLUCOSE METER 218 mg/dL 70-110 H : TESTED A T [facility] 6720 (BEAKER) (test code = LEONORA Arias [facility], 1538) 98263: Conical Mixer/Techni smita ID = [id number] for PUMA DIAZ HEMOGLOBIN [id number] 09:04:00 Test Item Value Reference Range Interpretation Comments HEMOGLOBIN A1C (BEAKER) (test code = 7.5 % 4.3-6.1 H 368) POCT-GLUCOSE [id number] 07:50:00 Test Item Value Reference Range Interpretation Comments POC-GLUCOSE METER 184 mg/dL 70-110 H : TESTED A T [facility] 6720 (BEAKER) ([facility] = [facility], 1538) [address]: Conical Mixer/Techni smita ID = [id number] for PUMA DIAZ COMPREHENSIVE METABOLIC [id number] 07:19:00 Test Item Value Reference Range Interpretation [...] = 382) CO2 (BEAKER) (test 27 meq/L 22-29 code = 355) BLOOD UREA NITROGEN 13 mg/dL 7-21 (BEAKER) (test code = 354) [...] 347) EGFR (BEAKER) (test 91 mL/min/1.73 ESTIMA RANGEL GFR IS code = 1092) sq m NOT ACCURATE CREATININE CLEARANCE IN PREDICTING GLOMERULAR FILTRATION RATE . ESTIMATED GFR I S NOT APPLICABLE FOR DIALYSIS PATIEN TS. Conical Mixer ID - XENA MSpecimen slightly [id number] 07:18:00 Test Item Value Reference Range Interpretation Comments MAGNESIUM (BEAKER) (test code = 1.8 mg/dL 1.6-2.6 627) Conical Mixer ID - XENA MCBC W/PLT COUNT & AUTO [id number] 06:46:00 Test Item Value Reference Range Interpretation [...] PERCENT (BEAKER) (test code = 2801) POCT-GLUCOSE [id number] 20:30:00 Test Item Value Reference Range Interpretation Comments POC-GLUCOSE METER 195 mg/dL 70-110 H : TESTED A T [facility] 6720 (BEAKER) (test code = [facility], 1538) 13420: Conical Mixer/Techni smita ID = [id number] for ALTAGRACIA MARTINES POCT-GLUCOSE [id number] 16:46:00 Test Item Value Reference Range Interpretation Comments POC-GLUCOSE METER 206 mg/dL 70-110 H : TESTED A T [facility] 6720 (BEAKER) (test code = [facility], 1538) 96934: Conical Mixer/Techni smita ID = [id number] for QUEEN DELGADO TISSUE [id number] 16:36:00Surgical Pathology Report Case: [id number] Authorizing Provider: Nisa Martin MD Collected: 05/31/2019 11:10 AM Ordering Location: [facility] PERIOPERATIVE Received: 05/31/2019 11:34 AM SERVICES Pathologist: Aileen Salinas MD Specimen: Gallbladder A. GALL BLADDER, CHOLECYSTECTOMY: - CHRONIC CHOLECYSTITIS - CHOLELTHIASIS Signing Pathologist Direct Phone Line: [phone] signed by Aileen Salinas MD on 06/01/2019 at 4:36 [id number] diagnosis: Cholangitis Gallbladder Receivedin formalin labeled with the patient's name, accession number and "gallbladder" is a 10.5 x 3.9 x 1.7 cm previously opened gallbladder with a 0.2 cm in length x 0.6 cm in diameter attached cystic duct.The serosa is yellow-pink, smooth and hyperemic. The specimen is opened to reveal approximately 1 mlof hemorrhagic bile and a 0.7 x 0.4 x 0.3 cm black bosselated calculus. There are no calculi lodged within the cystic duct. The mucosa is dominguez-yellow and trabeculated. The wall measures 0.2 cm thick. Mate Relief sections are submitted in A1-A2, with the inked cystic duct margin in A1. PA/pl Performed.MR, MRA, BRAIN, WITHOUT [id number] 14:44:00Reason for exam:->Ischemic Stroke EvaluationFINAL REPORT MR, [...] within the periventricular and subcortical white matter arenonspecific, however, statistically represent chronic microvascular ischemic changes. No hydrocephalus. Orbits are within normal limits. No obstructive paranasal sinus disease. Additional findings: None . MRA BRAIN:Internal carotid arteries: Normal flow related enhancement without flow-limiting stenosisMiddle cerebral arteries: Normal flow related enhancement within the bilateral MCA M1-M2 segments without flow limiting stenosisAnterior cerebral arteries: Normal flow-related enhancement within the bilateral JORY A1- A2 segments without flow limiting stenosisBasilar system: Normal flow-related enhancement within the bilateral V4 segments and the basilar artery without flow-limiting stenosis Posterior cerebral arteries: Normal flow-related enhancement within the bilateral MEAT CLERK P1-P2 segments without flow-limiting stenosisAdditional findings: None. MRA NECK:Common carotid arteries: Unremarkable. Bifurcations: No flow-limiting stenosis. Cervical internal carotid arteries: No flow limiting stenosis.Vertebral arteries: Origins are not well- seen. No flow limiting stenosis within the visualized cervical vertebral arterial segments. Limited assessment of the V3 segment secondary to noncontrast technique. IMPRESSION: No acute ischemia or parenchymal hemorrhage. No flow limiting stenosis in the major branch vessels of the cervical or cranial circulation. Signed: Trupti Husain MDReport Verified Date/Time: 06/01/2019 14:44:04 Reading Location: [address] Neuro Reading Room MR, MRA, NECK, WITHOUT IV [id number] 14:44:00Reason for exam:->Ischemic Stroke EvaluationFINAL REPORT MR, [...] within the periventricular and subcortical white matter arenonspecific, however, statistically represent chronic microvascular ischemic changes. No hydrocephalus. Orbits are within normal limits. No obstructive paranasal sinus disease. Additional findings: None . MRA BRAIN:Internal carotid arteries: Normal flow related enhancement without flow-limiting stenosisMiddle cerebral arteries: Normal flow related enhancement within the bilateral MCA M1-M2 segments without flow limiting stenosisAnterior cerebral arteries: Normal flow-related enhancement within the bilateral JORY A1- A2 segments without flow limiting stenosisBasilar system: Normal flow-related enhancement within the bilateral V4 segments and the basilar artery without flow-limiting stenosis Posterior cerebral arteries: Normal flow-related enhancement within the bilateral MEAT CLERK P1-P2 segments without flow-limiting stenosisAdditional findings: None. MRA NECK:Common carotid arteries: Unremarkable. Bifurcations: No flow-limiting stenosis. Cervical internal carotid arteries: No flow limiting stenosis.Vertebral arteries: Origins are not well- seen. No flow limiting stenosis within the visualized cervical vertebral arterial segments. Limited assessment of the V3 segment secondary to noncontrast technique. IMPRESSION: No acute ischemia or parenchymal hemorrhage. No flow limiting stenosis in the major branch vessels of the cervical or cranial circulation. Signed: Trputi Husain MDReport Verified Date/Time: 06/01/2019 14:44:04 Reading Location: [address] Neuro Reading Room MR, BRAIN, WITHOUT [id number] 14:44:00Reason for exam:->Ischemic Stroke EvaluationFINAL REPORT MR, [...] within the periventricular and subcortical white matter arenonspecific, however, statistically represent chronic microvascular ischemic changes. No hydrocephalus. Orbits are within normal limits. No obstructive paranasal sinus disease. Additional findings: None . MRA BRAIN:Internal carotid arteries: Normal flow related enhancement without flow-limiting stenosisMiddle cerebral arteries: Normal flow related enhancement within the bilateral MCA M1-M2 segments without flow limiting stenosisAnterior cerebral arteries: Normal flow-related enhancement within the bilateral JORY A1- A2 segments without flow limiting stenosisBasilar system: Normal flow-related enhancement within the bilateral V4 segments and the basilar artery without flow-limiting stenosis Posterior cerebral arteries: Normal flow-related enhancement within the bilateral MEAT CLERK P1-P2 segments without flow-limiting stenosisAdditional findings: None. MRA NECK:Common carotid arteries: Unremarkable. Bifurcations: No flow-limiting stenosis. Cervical internal carotid arteries: No flow limiting stenosis.Vertebral arteries: Origins are not well- seen. No flow limiting stenosis within the visualized cervical vertebral arterial segments. Limited assessment of the V3 segment secondary to noncontrast technique. IMPRESSION: No acute ischemia or parenchymal hemorrhage. No flow limiting stenosis in the major branch vessels of the cervical or cranial circulation. Signed: Trupti Husainort Verified Date/Time: 06/01/2019 14:44:04 Reading Location: [address] Neuro Reading Room POCT-GLUCOSE METER 2019-06-01 11:51:00 Test Item Value Reference Range Interpretation Comments POC-GLUCOSE METER 262 mg/dL 70-110 H : TESTED A T [facility] 6720 (BEAKER) (test code = [facility], 1538) 84324: Conical Mixer/Techni smita ID = [id number] for QUEEN DELGADO CBC W/PLT COUNT & AUTO [id number] 10:45:00 Test Item Value Reference Range Interpretation [...] (BEAKER) (test code = 2+ moderate 477) LIZZIE CELLS (BEAKER) (test code = 2+ moderate 474) PLATELET CONCENTRATION Decreased (CELLAVISION)(BEAKER) (test code = 3438) Conical Mixer ID - Enriqueta Hopson comments: Slide comments:POCT-GLUCOSE METER 2019-06-01 07:14:00 Test Item Value Reference Range Interpretation Comments POC-GLUCOSE METER 208 mg/dL 70-110 H : TESTED A T [facility] 6720 (BEAKER) (test code = LEONORA Arias [place], 1538) 38[address]: Conical Mixer/Techni smita ID = [id number] for XIOMARA CORTES [place] COMPREHENSIVE METABOLIC [id number] 05:19:00 Test Item Value Reference Range Interpretation [...] S NOT APPLICABLE FOR DIALYSIS PATIEN TS. Conical Mixer ID - ZHAO WSpecimen slightly [id number] 05:12:00 Test Item Value Reference Range Interpretation Comments MAGNESIUM (BEAKER) (test code = 2.0 mg/dL 1.6-2.6 627) Conical Mixer ID - ZHAO WPOCT-GLUCOSE [id number] 00:40:00 Test Item Value Reference Range Interpretation Comments POC-GLUCOSE METER 253 mg/dL 70-110 H : TESTED A T [facility] 6720 (BEAKER) (test code = [facility], 1538) 35530: Conical Mixer/Techni smita ID = [id number] for CYNTHIA SERRA POCT-GLUCOSE [id number] 12:45:00 Test Item Value Reference Range Interpretation Comments POC-GLUCOSE METER 199 mg/dL 70-110 H : TESTED A T [facility] 6720 (BEAKER) (test code = [facility], 1538) 22608: Conical Mixer/Techni smita ID = [id number] for MULUGETA FLOWERS POCT-GLUCOSE [id number] 08:12:00 Test Item Value Reference Range Interpretation Comments POC-GLUCOSE METER 146 mg/dL 70-110 H : TESTED A T [facility] 6720 (BEAKER) (test code = [facility], 1538) 38661: Conical Mixer/Techni smita ID = [id number] for IKER MEEKS COMPREHENSIVE METABOLIC [id number] 05:57:00 Test Item Value Reference Range Interpretation [...] S NOT APPLICABLE FOR DIALYSIS PATIEN TS. Conical Mixer ID - PIAYA LSpecimen moderately ictericCBC W/PLT COUNT & AUTO [id number] 05:39:00 Test Item Value Reference Range Interpretation [...] (BEAKER) (test code = 2+ moderate 477) LIZZIE CELLS (BEAKER) (test code = 1+ few 474) ARTIFACT (CELLAVISION)(BEAKER) Present (test code = 3432) PLATELET CONCENTRATION Decreased (CELLAVISION)(BEAKER) (test code = 3438) Conical Mixer ID - [id number] ID - Karen Larson comments: Slide comments:POCT- GLUCOSE [id number] 05:37:00 Test Item Value Reference Range Interpretation Comments POC-GLUCOSE METER 131 mg/dL 70-110 H : TESTED A T [facility] 6720 (BEAKER) (test code = [facility], 1538) 08358: Conical Mixer/Techni smita ID = [id number] for LESLIE, GINI TTE POCT-GLUCOSE [id number] 21:20:00 Test Item Value Reference Range Interpretation Comments POC-GLUCOSE METER 278 mg/dL 70-110 H : TESTED A T [facility] 6720 (BEAKER) (test code = [facility], 1538) 65143: Conical Mixer/Techni smita ID = [id number] for LESLIE, GINI TTE POCT-GLUCOSE [id number] 18:43:00 Test Item Value Reference Range Interpretation Comments POC-GLUCOSE METER 208 mg/dL 70-110 H : TESTED A T [facility] 6720 (BEAKER) (test code = [facility], 1538) 82223: Conical Mixer/Techni smita ID = [id number] for IKER MEEKS FL, [id number] 14:58:00Reason for exam:->ABNORMAL IMAGINGFINAL REPORT A fluoroscopic unit was utilized for a procedure performed in the operating room. No interpretation was requested. Please refer to the operative report regarding findings. Please refer to PACS for patient radiation dose information. Signed: Linda Erwin MDReport Verified Date/Time: 05/30/2019 14:58:06 Reading Location: [address] Radiology Reading Room CBC W/PLT COUNT & AUTO [id number] 13:05:00 Test Item Value Reference Range Interpretation [...] (BEAKER) (test code = 1+ few 477) LIZZIE CELLS (BEAKER) (test code = 2+ moderate 474) ARTIFACT (CELLAVISION)(BEAKER) Present (test code = 3432) PLATELET CONCENTRATION Decreased (CELLAVISION)(BEAKER) (test code = 3438) Conical Mixer ID - [id number] ID - Shannan Arzate comments: Slide comments: COMPREHENSIVE METABOLIC [id number] 11:55:00 Test Item Value Reference Range Interpretation [...] S NOT APPLICABLE FOR DIALYSIS PATIEN TS. Conical Mixer ID - NICK CSpecimen moderately [id number] 11:54:00 Test Item Value Reference Range Interpretation Comments MAGNESIUM (BEAKER) (test code = 1.8 mg/dL 1.6-2.6 627) Conical Mixer ID - NICK [id number] 11:54:00 Test Item Value Reference Range Interpretation Comments PHOSPHORUS (BEAKER) (test code = 3.2 mg/dL 2.3-4.7 604) Conical Mixer ID - NICK CLACTIC ACID, [id number] 11:48:00 Test Item Value Reference Range Interpretation Comments LACTATE BLOOD VENOUS 1.74 mmol/L 0.50-2.20 Specime n slightly (2) (BEAKER) (test hemolyzed code = 2872) Conical Mixer ID - NICK CSpecimen moderately ictericPT/[id number] 11:44:00 Test Item Value Reference Range Interpretation [...] is 2.5-3.5 for patients wiht mechanical heart valves.POCT-GLUCOSE [id number] 08:39:00 Test Item Value Reference Range Interpretation Comments POC-GLUCOSE METER 194 mg/dL 70-110 H : TESTED A T [facility] 6720 (BEAKER) (test code = LEONORA [place], 1538) 48981: Conical Mixer/Techni smita ID = [id number] for IKER MEEKS POCT-GLUCOSE [id number] 08:25:00 Test Item Value Reference Range Interpretation Comments POC-GLUCOSE METER 186 mg/dL 70-110 H : TESTED A T [facility] 6720 (BEAKER) (test code = [facility] [place], 1538) 06463: Conical Mixer/Techni smita ID = [id number] for IKER MEEKS
[2021-12-24 14:33] LABS: Absolute Lymphocytes (CBC) 0.3 K/uL (0.7-4.9); Hematocrit 48.7 % (39.6-49.0); Lymphocytes % 5.6 % (15.3-44.8); MCV 92.1 fL (80-100); MPV 8.7 fL (7.6-11.3); RBC Red Blood Cell Count 5.29 M/uL (4.33-5.43)
--- NOTE | 2021-12-24 14:35 | RAD REPORT ---
EXAM DESCRIPTION: RAD - Chest Single View - 12/24/2021 2:26 pm CLINICAL HISTORY: COUGH COMPARISON: No comparisonsChest Single View dated 05/30/2019 FINDINGS: Lines: None. Lungs: Developing airspace disease present right lung base. Right hemidiaphragm elevation is unchange d. Pleural: No significant pleural effusions or pneumothorax. Cardiac: The heart size is within normal limits. Mediastinum: Within normal limits. Bones: No acute fractures. Other: None IMPRESSION: Atelectasis versus pneumonia at the right lung base.
[2021-12-24] MEDS ORDERED: NA CHLORIDE 0.9% 0 ML IV ONE (14:48)
[2021-12-24] MEDS ORDERED: ACETAMINOPHEN 500 MG TAB ONE ×2 (14:48→14:53)
[2021-12-24] MEDS ORDERED: CEFTRIAXONE 1000 MG/VIAL ONE (14:48)
[2021-12-24 14:50] LABS: Albumin 3.7 g/dL (3.4-5.0); Bilirubin Total 1.4 mg/dL (0.2-1.0); Potassium 3.8 mmol/L (3.5-5.1); Protein, Total 8.6 g/dL (6.4-8.2)
[2021-12-24 14:54] LABS: Protime INR 1.21
[2021-12-24] MEDS ORDERED: VANCOMYCIN 1 GM/VIAL ONE (15:14)
[2021-12-24] MEDS ORDERED: MUPIROCIN 2% OINT 22GM TUBE TOP ONE (15:14)
[2021-12-24] MEDS ORDERED: NA CHLORIDE 0.9% 250 ML ONE (15:14)
[2021-12-24] MEDS ORDERED: NA CHLORIDE 0.9% 100 ML IV ONE (15:15)
[2021-12-24] MEDS ORDERED: NA CHLORIDE 0.9% 2,000 ML ONE (15:15)
[2021-12-24] MEDS ORDERED: PIPERACIL/TAZO 3.375 GM VIAL IV ONE (15:15)
--- NOTE | 2021-12-24 15:25 | EDPHYS ---
Physician Documentation [facility] Name: Kuldip Schaffer Jr Age: 76 yrs Sex: Male : 1945 Arrival Date: 12/24/2021 Time: 13:28 Bed 6 Private MD: ED Physician Kuldeep Mehta HPI: 12/24 15:02 This 76 yrs old Male presents to ER via EMS with complaints of General kathy Weakness. 15:02 The patient presents with pain, swelling, tenderness. The complaints affect the right kathy leg and left leg. Context: The problem was sustained at home, resulted from a chronic condition, an unknown cause. Onset: The symptoms/episode began/occurred 3 day(s) ago. Modifying factors: The symptoms are alleviated by elevating leg, remaining still, the symptoms are aggravated by movement. Associated signs and symptoms: The patient has no apparent associated signs or symptoms. fever , weakness, red lower extrmities. The patient reports fever, that was measured at 101 degrees Fahrenheit. Onset: The symptoms/episode began/occurred today. Historical: - Allergies: 13:28 BEEF CONTAINING PRODUCTS; aa5 - PMHx: 13:28 Diabetes - IDDM; Hypertension; "gall bladder problems"; aa5 - Immunization history:: Flu vaccine is up to date. - Family history:: not pertinent. - Social history:: Smoking status: Patient/guardian denies using tobacco, but has a distant history of tobacco abuse. ROS: 15:02 Eyes: Negative for injury, pain, redness, and discharge, ENT: Negative for injury, kathy pain, and discharge, Neck: Negative for injury, pain, and swelling, Cardiovascular: Negative for chest pain, palpitations, and edema, Respiratory: Negative for shortness of breath, cough, wheezing, and pleuritic chest pain, Abdomen/GI: Negative for abdominal pain, nausea, vomiting, diarrhea, and constipation, Back: Negative for injury and pain, : Negative for injury, bleeding, discharge, and swelling, Neuro: Negative for headache, weakness, numbness, tingling, and seizure, Psych: Negative for depression, anxiety, suicide ideation, homicidal ideation, and hallucinations, Allergy/Immunology: Negative for hives, rash, and allergies, Endocrine: Negative for neck swelling, polydipsia, polyuria, polyphagia, and marked weight changes. 15:02 Constitutional: Positive for body aches, chills, fatigue, fever, malaise. 15:02 Respiratory: Positive for cough, "sounds productive". 15:02 MS/extremity: Positive for erythema, pain, of the right leg and left leg. Exam: 15:02 Head/Face: Normocephalic, atraumatic. Eyes: Pupils equal round and reactive to light, kathy extra-ocular motions intact. Lids and lashes normal. Conjunctiva and sclera are non-icteric and not injected. Cornea within normal limits. Periorbital areas with no swelling, redness, or edema. ENT: Nares patent. No nasal discharge, no septal abnormalities noted. Tympanic membranes are normal and external auditory canals are clear. Oropharynx with no redness, swelling, or masses, exudates, or evidence of obstruction, uvula midline. Mucous membranes moist. Neck: Trachea midline, no thyromegaly or masses palpated, and no cervical lymphadenopathy. Supple, full range of motion without nuchal rigidity, or vertebral point tenderness. No Meningismus. Chest/axilla: Normal chest wall appearance and motion. Nontender with no deformity. No lesions are appreciated. Cardiovascular: Regular rate and rhythm with a normal S1 and S2. No gallops, murmurs, or rubs. Normal PMI, no JVD. No pulse deficits. Respiratory: Lungs have equal breath sounds bilaterally, clear to auscultation and percussion. No rales, rhonchi or wheezes noted. No increased work of breathing, no retractions or nasal flaring. Abdomen/GI: Soft, non-tender, with normal bowel sounds. No distension or tympany. No guarding or rebound. No evidence of tenderness throughout. Back: No spinal tenderness. No costovertebral tenderness. Full range of motion. Male : Normal genitalia with no discharge or lesions. Neuro: Awake and alert, GCS 15, oriented to person, place, time, and situation. Cranial nerves II-XII grossly intact. Motor strength 5/5 in all extremities. Sensory grossly intact. Cerebellar exam normal. Normal gait. Psych: Awake, alert, with orientation to person, place and time. Behavior, mood, and affect are within normal limits. 15:02 Skin: cellulitis, that is moderate, induration, that is mild is noted, located on the right leg and left leg, injury. 15:08 ECG was reviewed by the Attending Physician. [facility] Vital Signs: 13:28 BP 153 / 78; Pulse 88; Resp 18 S; Temp 99.9(O); Pulse Ox 96% on R/A; aa5 14:34 BP 139 / 72; Pulse 90; Resp 22; Pulse Ox 99% on R/A; vg1 20:29 BP 149 / 73; Pulse 84; Resp 18; Pulse Ox 96% on R/A; tw5 21:30 BP 144 / 79; Pulse 80; Resp 20 S; Temp 98(O); Pulse Ox 97% on R/A; aa9 11 00:00 BP 135 / 71; Pulse 77; Resp 18 S; Pulse Ox 94% on R/A; tw5 00:19 Temp 98(O); tw5 MDM: 12/24 13:34 Patient medically screened. [facility] 15:07 Differential diagnosis: contusion, abrasion, tendonitis, viral Infection, bacterial kathy infection, URI. Differential Diagnosis sepsis. Data reviewed: vital signs, nurses notes, EMS record, lab test result(s), EKG, radiologic studies, plain films. 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 Test interpretation: by ED physician or midlevel provider: ECG, plain radiologic studies. Counseling: I had a detailed discussion with the patient and/or guardian regarding: the historical points, exam findings, and any diagnostic results supporting the discharge/admit diagnosis, lab results, radiology results, the need for further work-up and treatment in the hospital. 12/24 13:50 Order name: Blood Culture Adult (2) [facility] 12/24 13:50 Order name: CBC with Diff; Complete Time: 15:01 12/24 13:50 Order name: CMP; Complete Time: 15:01 12/24 13:50 Order name: Lactate w/ 2H reflex if indic.; Complete Time: 15:01 12/24 13:50 Order name: Protime (+inr); Complete Time: 15:01 12/24 13:50 Order name: Ptt, Activated; Complete Time: 15:01 12/24 13:52 Order name: COVID-19/FLU A+B; Complete Time: 16:43 [facility] 12/24 13:56 Order name: Magnesium; Complete Time: 16:43 [facility] 12/24 13:56 Order name: NT PRO-BNP; Complete Time: 16:43 [facility] 12/24 13:56 Order name: Troponin HS; Complete Time: 16:43 [facility] 12/24 13:57 Order name: Urine Microscopic Only [facility] 12/24 14:35 Order name: Glucose, Ancillary Testing; Complete Time: 15:01 [facility] 12/24 13:56 Order name: XRAY Chest (1 view); Complete Time: 15:01 [facility] 12/24 15:13 Order name: US Extremity Venous W Compression Jhon[facility] 12/24 15:20 Order name: CT Chest Abdomen Pelvis W/O Contrast [facility] 12/24 15:33 Order name: Bilirubin Direct; Complete Time: 16:43 [facility] 12/24 15:36 Order name: Lipase; Complete Time: 16:43 [facility] 12/24 15:54 Order name: Troponin High Sensitivity [facility] 12/24 16:29 Order name: US; Complete Time: 16:43 [facility] 12/24 16:54 Order name: CT; Complete Time: 18:34 [facility] 12/24 18:41 Order name: Lactate Sepsis 2 HR Follow-up [facility] 12/24 20:35 Order name: Urine Dipstick-Ancillary [facility] 12/24 13:50 Order name: EKG; Complete Time: 13:51 [facility] 12/24 13:50 Order name: Accucheck; Complete Time: 14:23 [facility] 12/24 13:50 Order name: Cardiac monitoring; Complete Time: 13:52 [facility] 12/24 13:50 Order name: EKG - Nurse/Tech; Complete Time: 13:52 [facility] 12/24 13:50 Order name: IV Saline Lock - Large Bore; Complete Time: 14:15 [facility] 12/24 13:50 Order name: Labs collected and sent; Complete Time: 14:15 [facility] 12/24 13:50 Order name: O2 Per Protocol; Complete Time: 13:52 [facility] 12/24 13:50 Order name: O2 Sat Monitoring; Complete Time: 13:52 [facility] 12/24 13:50 Order name: Vital Signs; Complete Time: 14:15 [facility] 12/24 13:53 Order name: Urine Dipstick-Ancillary (obtain specimen); Complete Time: 21:37 [facility] 12/24 13:56 Order name: IV Saline Lock; Complete Time: 14:15 kathy EC:08 Rate is 91 beats/min. Rhythm is regular. QRS Cactus is Normal. DC interval is normal. QRS kathy interval is normal. QT interval is normal. No Q waves. T waves are Normal. No ST changes noted. Clinical impression: NSR w/ Non-specific ST/T Changes and No evidence of ischemia. Interpreted by me. Reviewed by me. Administered Medications: 14:59 Drug: Tylenol 1000 mg Route: PO; 1 12/25 00:19 Follow up: Temp 98 Oral; Response: No adverse reaction [facility] 12/24 15:00 Not Given (Duplicate Order): Rocephin (cefTRIAXone) 1 grams IV at per protocol once; kathy Given slow IV push per pharmacy instructions 15:01 CANCELLED (Duplicate Order): Unasyn (ampicillin-sulbactam) 3 grams IVPB once over 30 kathy mins; (mix in 100 mL NS) 16:39 Drug: NS 0.9% 1000 ml Route: IV; Rate: 1 bolus; Site: left wrist; [facility] 12/25 00:20 Follow up: Response: No adverse reaction; IV Status: Completed infusion; IV Intake: tw5 1000ml 12/24 16:39 Drug: NS 0.9% 1000 ml Route: IV; Rate: 1 bolus; Site: left wrist; [facility] 12/25 00:20 Follow up: IV Status: Completed infusion; IV Intake: 1000ml [facility] 12/24 16:40 Drug: Pepcid (famotidine) 20 mg Route: IVP; Site: left wrist; [facility] 12/25 00:20 Follow up: Response: No adverse reaction [facility] 12/24 16:45 Drug: Zosyn (piperacillin-tazobactam) 3.375 grams Route: IVPB; Infused Over: 60 mins; 1 Site: right antecubital; 18:33 Follow up: IV Status: Completed infusion; IV Intake: 100ml [facility] 19:05 Drug: vancoMYCIN 1 grams Route: IVPB; Infused Over: 2 hrs; Site: right antecubital; [facility] 12/25 00:20 Follow up: Response: No adverse reaction; IV Status: Completed infusion [facility] 12/24 19:50 Drug: Bactroban (mupirocin) Ointment 2 % 1 application Route: Topical; Site: affected tw5 area; 12/25 00:21 Follow up: Response: No adverse reaction tw5 Disposition Summary: 12/24/21 15:24 Hospitalization Ordered Hospitalization Status: Inpatient Admission kathy Provider: Espinoza Breen cha Location: Telemetry/MedSurg (Inpatient) kathy Condition: Fair kathy Problem: new kathy Symptoms: have improved kathy Bed/Room Type: Standard [facility] Room Assignment: 222(12/24/21 23:55) Diagnosis - Fever, unspecified kathy - Weakness kathy - Cellulitis and acute lymphangitis of other parts of limb - bilateral lower kathy extrmities - Unspecified kidney failure - renal insufficency kathy - Type 1 diabetes mellitus with hyperglycemia kathy - Abnormal level of enzymes in specimens from digestive organs and abdominal cavity - kathy transaminases, elevated - SARS-associated coronavirus as the cause of diseases classified elsewhere kathy Forms: - Medication Reconciliation Form kathy - SBAR form [facility] Signatures: Dispatcher [employer] EDKuldeep Llamas MD MD cha Calderon, Audri, RN RN aa5 Dot Keyes RN RN cg China Keyes RN RN 1 Crystal Belle tw5 Corrections: (The following items were deleted from the chart) 12/24 15:01 15:01 Unasyn (ampicillin-sulbactam) 3 grams IVPB once over 30 mins; (mix in 100 mL NS) [facility] ordered. [facility] 15:06 13:58 BASIC METABOLIC PANEL+C.LAB.BRZ ordered. EDMS EDMS 15:33 13:58 HEPATIC FUNCTION+C.LAB.BRZ ordered. EDMS EDMS 15:37 15:22 LIPASE+C.LAB.BRZ ordered. EDMS EDMS 23:55 15:24 kathy cg
--- NOTE | 2021-12-24 15:25 | ER ---
Nurse's Notes [facility] Name: Kuldip Schaffer Jr Age: 76 yrs Sex: Male : 1945 Arrival Date: 12/24/2021 Time: 13:28 Bed 6 Private MD: Diagnosis: Fever, unspecified;Weakness;Cellulitis and acute lymphangitis of other parts of limb-bilateral lower extrmities;Unspecified kidney failure-renal insufficency;Type 1 diabetes mellitus with hyperglycemia;Abnormal level of enzymes in specimens from digestive organs and abdominal cavity-transaminases, elevated;SARS-associated coronavirus as the cause of diseases classified elsewhere Presentation: 12/24 13:28 Chief complaint: EMS states: Pt lives at a [facility] and when pt did not aa show up for lunch, neighbors decided to check on him and found him sleeping under a desk. 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 EMS reports pt was found alert and oriented upon their arrival under a desk. EMS reports FSBG 237, Temperature 100.3 *F, and HR 110. Pt denies any cough, denies nausea/vomiting/diarrhea. Pt only reports generalized weakness and states "my right hand has tremors since yesterday". 13:28 Coronavirus screen: fever. Ebola Screen: Patient denies travel to an [place] [place] in the 21 days before illness onset. Initial Sepsis Screen: Does the patient meet any 2 criteria? No. Patient's initial sepsis screen is negative. Does the patient have a suspected source of infection? Yes:. Risk Assessment: Do you want to hurt yourself or someone else? Patient reports no desire to harm self or others. Onset of symptoms was December 24, 2021. 13:28 Acuity: WILD 2 aa5 13:28 Method Of Arrival: EMS: [facility] aa5 Historical: - Allergies: 13:28 BEEF CONTAINING PRODUCTS; aa5 - PMHx: 13:28 Diabetes - IDDM; Hypertension; "gall bladder problems"; aa5 - Immunization history:: Flu vaccine is up to date. - Family history:: not pertinent. - Social history:: Smoking status: Patient/guardian denies using tobacco, but has a distant history of tobacco abuse. Screenin:23 Abuse screen: Denies threats or abuse. Nutritional screening: No deficits noted. vg1 Tuberculosis screening: No symptoms or risk factors identified. Fall Risk Fall in past 12 months (25 points). No secondary diagnosis (0 pts). IV access (20 points). Ambulatory Aid- None/Bed Rest/Nurse Assist (0 pts). Gait- Normal/Bed Rest/Wheelchair (0 pts) Mental Status- Oriented to own ability (0 pts). Total Pham Fall Scale indicates High Risk Score (45 or more points). Fall prevention measures have been instituted. Side Rails Up X 2 Placed Close to Nursing Station Family Present and informed to notify staff if the need to leave the bedside As available patient and family educated on Fall Prevention Program and Strategies. Assessment: 13:35 General: Appears in no apparent distress. comfortable, Behavior is calm, cooperative. vg1 Pain: Complains of pain in right leg and left leg Pain currently is 6 out of 10 on a pain scale. Neuro: Level of Consciousness is awake, alert, obeys commands, Oriented to person, place, time, situation. Cardiovascular: Denies chest pain, shortness of breath, Capillary refill is > 3 seconds in bilateral toes. Respiratory: Airway is patent Respiratory effort is even, unlabored. GI: Patient currently denies nausea, vomiting. : No signs and/or symptoms were reported regarding the genitourinary system. EENT: No signs and/or symptoms were reported regarding the EENT system. Derm: Skin is dry, Wound noted right leg and left leg. Musculoskeletal: Swelling present in right leg and left leg Reports new onset of tremor to Right arm. 20:29 Reassessment: Patient appears in no apparent distress at this time. No changes from tw5 previously documented assessment. Patient and/or family updated on plan of care and expected duration. Pain level reassessed. Patient is alert, oriented x 3, equal unlabored respirations, skin warm/dry/pink. General: Appears in no apparent distress. 21:30 Reassessment: Patient appears in no apparent distress at this time. Patient is alert, aa9 oriented x 3, equal unlabored respirations, skin warm/dry/pink. Jarvis Schaffer , Son has been updated on current plan, denies concerns, pt aware of need for hospitalization and denies concerns. 11/18 00:15 Reassessment: pt notified of room change, pt understands an denies concern at this tw5 time. General: Appears in no apparent distress. comfortable, Behavior is calm, cooperative. Respiratory: Airway is patent Trachea midline Respiratory effort is even, unlabored. 00:18 Reassessment: attempted to call report. tw5 Vital Signs: 12/24 13:28 BP 153 / 78; Pulse 88; Resp 18 S; Temp 99.9(O); Pulse Ox 96% on R/A; aa5 14:34 BP 139 / 72; Pulse 90; Resp 22; Pulse Ox 99% on R/A; vg1 20:29 BP 149 / 73; Pulse 84; Resp 18; Pulse Ox 96% on R/A; tw5 21:30 BP 144 / 79; Pulse 80; Resp 20 S; Temp 98(O); Pulse Ox 97% on R/A; aa9 12/25 00:00 BP 135 / 71; Pulse 77; Resp 18 S; Pulse Ox 94% on R/A; tw5 00:19 Temp 98(O); tw5 ED Course: 12/24 13:28 Patient arrived in ED. eb 13:28 Arm band placed on. aa5 13:34 Kuldeep Mehta MD is Attending Physician. kathy 13:35 China Keyes, RN is Primary Nurse. vg1 13:49 Triage completed. aa5 14:08 Inserted saline lock: 20 gauge in right antecubital area, using aseptic technique. vg1 Blood collected. 14:08 Initial lab(s) drawn, by me, sent to lab. First set of blood cultures drawn by me. vg1 14:23 Patient has correct armband on for positive identification. Placed in gown. Bed in low vg1 position. Call light in reach. Side rails up X2. Adult w/ patient. Client placed on continuous cardiac and pulse oximetry monitoring. NIBP monitoring applied. 14:28 XRAY Chest (1 view) In Process Unspecified. EDMS 15:21 Espinoza Breen MD is Hospitalizing Provider. kathy 19:09 Primary Nurse role handed off by China Keyes, RN mw2 19:50 Crystal Belle is Primary Nurse. tw5 21:39 Door closed. Lights dimmed. Warm blanket given. Verbal reassurance given. aa9 12/25 00:13 No provider procedures requiring assistance completed. Patient admitted, IV remains in tw5 place. Administered Medications: 12/24 14:59 Drug: Tylenol 1000 mg Route: PO; vg1 12/25 00:19 Follow up: Temp 98 Oral; Response: No adverse reaction tw5 12/24 15:00 Not Given (Duplicate Order): Rocephin (cefTRIAXone) 1 grams IV at per protocol once; kathy Given slow IV push per pharmacy instructions 15:01 CANCELLED (Duplicate Order): Unasyn (ampicillin-sulbactam) 3 grams IVPB once over 30 kathy mins; (mix in 100 mL NS) 16:39 Drug: NS 0.9% 1000 ml Route: IV; Rate: 1 bolus; Site: left wrist; vg1 12/25 00:20 Follow up: Response: No adverse reaction; IV Status: Completed infusion; IV Intake: tw5 1000ml 12/24 16:39 Drug: NS 0.9% 1000 ml Route: IV; Rate: 1 bolus; Site: left wrist; 1 12/25 00:20 Follow up: IV Status: Completed infusion; IV Intake: 1000ml tw5 12/24 16:40 Drug: Pepcid (famotidine) 20 mg Route: IVP; Site: left wrist; vg1 12/25 00:20 Follow up: Response: No adverse reaction tw5 12/24 16:45 Drug: Zosyn (piperacillin-tazobactam) 3.375 grams Route: IVPB; Infused Over: 60 mins; vg1 Site: right antecubital; 18:33 Follow up: IV Status: Completed infusion; IV Intake: 100ml 1 19:05 Drug: vancoMYCIN 1 grams Route: IVPB; Infused Over: 2 hrs; Site: right antecubital; vg1 12/25 00:20 Follow up: Response: No adverse reaction; IV Status: Completed infusion tw5 12/24 19:50 Drug: Bactroban (mupirocin) Ointment 2 % 1 application Route: Topical; Site: affected tw5 area; 12/25 00:21 Follow up: Response: No adverse reaction tw5 Medication: 12/24 14:34 VIS not applicable for this client. vg1 Intake: 18:33 IV: 100ml; Total: 100ml. vg1 12/25 00:20 IV: 1000ml; Total: 1100ml. tw 00:20 IV: 1000ml; Total: 2100ml. tw5 Outcome: 12/24 15:24 Decision to Hospitalize by Provider. kathy 12/25 00:19 Condition: stable tw5 00:30 Admitted to Med/surg accompanied by nurse, via stretcher, room 222, with chart, Report tw5 called to Charlee 00:30 Instructed on the need for admit. 00:56 Patient left the ED. tw5 Signatures: Dispatcher [employer] EDKuldeep Llamas MD MD cha Calderon, Audri, RN RN aa5 Mark Camarena mw2 Juju Brar Victoria, RN RN 1 Crystal Belle tw5 Shruti Goodwin, RN RN aa9 Corrections: (The following items were deleted from the chart) 12/24 14:32 13:28 Initial Sepsis Screen: Does the patient meet any 2 criteria? No. Patient's aa5 initial sepsis screen is negative. Does the patient have a suspected source of infection? No. Patient's initial sepsis screen is negative. aa5
[2021-12-24 15:32] LABS: Bilirubin Direct 0.5 mg/dL (0-0.2); Magnesium 2.1 mg/dL (1.8-2.4)
[2021-12-24 15:33] LABS: Troponin High Sensitivity 424.8 pg/mL (<58.9)
[2021-12-24 15:37] LABS: SARS-COV-2 RT PCR POSITIVE (NEGATIVE)
[2021-12-24] MEDS ORDERED: FAMOTIDINE 20 MG/2 ML VIAL IV ONE (15:57)
--- NOTE | 2021-12-24 16:28 | RAD REPORT ---
EXAM DESCRIPTION: US - Extrem Venous W Compress Jhonny - 12/24/2021 4:13 pm CLINICAL HISTORY: PAIN COMPARISON: Extrem Venous W Compress Jhonny dated 08/25/2020 TECHNIQUE: Real-time sonographic evaluation of the lower extremity deep venous systems was performed using color Doppler, grayscale, and compression. FINDINGS: Bilateral lower extremities. Normal compressibility, flow augmentation, phasic flow and spontaneous flow is identified in both the left and right lower extremity deep venous systems. No intraluminal filling defects seen. IMPRESSION: No DVT in either lower extremity.
--- NOTE | 2021-12-24 16:53 | RAD REPORT ---
EXAM DESCRIPTION: CTChest Abd Pelvis Wo Con - 12/24/2021 4:30 pm CLINICAL HISTORY: pna, abd pain COMPARISON: No comparisons TECHNIQUE: CT of the chest, abdomen, and pelvis was performed. All CT scans are performed using dose optimization technique as appropriate and may include automated exposure control or mA/KV adjustment according to patient size. FINDINGS: Thorax: Chest Wall: No abnormal mass Lungs: No acute abnormality. Pleura: No effusions or pneumothorax. [place]/Mediastinum: No lymphadenopathy. Aorta/Pulmonary Arteries: Unremarkable Heart: Normal size. Abdomen/Pelvis: Liver: No acute abnormality or suspicious lesions. Hepatic steatosis Biliary: No biliary ductal dilatation. Cholecystectomy . Stomach: No significant focal abnormality. Duodenum: No significant focal abnormality. Pancreas: No significant abnormality. Spleen: No significant abnormality. Adrenal: No suspicious lesions. Kidney/ureter: No hydronephrosis. No renal calculi. Retroperitoneum: No retroperitoneal adenopathy. Vascular: No aneurysm. Bowel: No significant focal abnormality. Peritoneum: No ascites or free air. Small fat containing inguinal hernias. Bladder: Grossly unremarkable. Reproductive: No adnexal masses. Bones: No acute fracture. Grade 1 anterolisthesis of L5 on S1. Other: n/a IMPRESSION: No acute findings within the chest, abdomen, or pelvis. Incidental findings as noted above.
[2021-12-24 20:35] LABS: Urine Blood 3+ (Negative); Urine Glucose 3+ (Negative); Urine Protein 1+ (Negative); Urine Specific Gravity 1.015 (1.005-1.030); Urine pH 5.5 (5.0-7.0)
[2021-12-24 20:50] LABS: Urine Mucus Slight /HPF (None Seen); Urine RBC <5 /HPF (None Seen)
[2021-12-25] MEDS: MUPIROCIN 2% OINT 22GM TUBE TOP SCH ×3 (00:41→21:31)
[2021-12-25] MEDS ORDERED: VANCOMYCIN 1 GM in NA CHLORIDE 0.9% 250 ML IVPB SCH (00:41)
[2021-12-25] MEDS: ALBUTEROL 2.5 MG/3 ML NEB SOL NEB SCH ×5 (00:41→20:25)
[2021-12-25] MEDS ORDERED: ONDANSETRON 4 MG/2 ML VIAL IV PRN (00:41)
[2021-12-25 01:28] VITALS: BMI 32.6
[2021-12-25] MEDS: NA CHLORIDE 0.9% 1,000 ML IV SCH ×4 (01:47→23:26)
[2021-12-25] MEDS: MORPHINE 4 MG/ML SYR IV PRN (01:52)
[2021-12-25] MEDS: PIPER TAZO 3.375 GM in NA CHLORIDE 0.9% 100 ML IV SCH ×3 (02:16→18:16)
[2021-12-25] MEDS ORDERED: VANCOMYCIN 500 MG/VIAL ONE (02:24)
[2021-12-25] MEDS ORDERED: NA CHLORIDE 0.9% 0 ML ONE (02:25)
[2021-12-25] MEDS ORDERED: NA CHLORIDE 0.9% 250 ML ONE (02:30)
[2021-12-25] MEDS ORDERED: VANCOMYCIN 750 MG in NA CHLORIDE 0.9% 150 ML IVPB ONE (02:30)
[2021-12-25] MEDS ORDERED: VANCOMYCIN 750 MG in NA CHLORIDE 0.9% 250 ML IVPB ONE (02:30)
[2021-12-25 07:07] LABS: Absolute Lymphocytes (CBC) 0.7 K/uL (0.7-4.9); Hematocrit 44.3 % (39.6-49.0); Lymphocytes % 11.1 % (15.3-44.8); MCV 92.2 fL (80-100); MPV 9.1 fL (7.6-11.3)
[2021-12-25 07:11] LABS: Potassium 3.7 mmol/L (3.5-5.1)
[2021-12-25] MEDS ORDERED: INFLUENZA VACCINE (for 6+ mo) 0.5 ML DOSE IMVAC ONE (08:00)
[2021-12-25] MEDS ORDERED: PNEUMOCOCCAL VACCINE 0.5 ML IMVAC ONE (08:00)
[2021-12-25 08:44] LABS: Blood Morphology Comment NOT SEEN (NOT SEEN); Platelet Estimate ADEQ
--- NOTE | 2021-12-25 08:46 | RAD REPORT ---
EXAM DESCRIPTION: RAD - Chest Single View - 12/25/2021 7:12 am CLINICAL HISTORY: Chest Pain COMPARISON: Portable 12/24/2021, CT chest 12/24/2021 TECHNIQUE: AP portable chest image was obtained 12/25/2021 7:12 am . FINDINGS: Lung volumes remain low. Right base atelectasis changes are still evident but there does a ppear to be some improvement. No new or progressive left lung field finding. Failure and volume overl oad are not suspected. Heart and vasculature are normal. No measurable pleural effusion and no pneumothorax. No acute bony abnormality seen. No acute aortic findings suspected. IMPRESSION: Right base atelectasis shows slight improvement. A minimal pneumonia is possible but unl ikely. No new or progressive finding.
[2021-12-25] MEDS ORDERED: FAMOTIDINE 20 MG/2 ML VIAL IV SCH (09:00)
[2021-12-25] MEDS ORDERED: ASPIRIN 81 MG CHEWABLE TABLET PO SCH (09:00)
[2021-12-25] MEDS: ASPIRIN EC 81 MG TAB PO SCH (09:47)
[2021-12-25] MEDS: NIRMATRELVIR/RITONAVIR TABLET PO SCH ×2 (09:47→21:27)
[2021-12-25] MEDS: ENOXAPARIN 40 MG/0.4 ML SQ SCH (09:50)
[2021-12-25 12:17] LABS: Arterial Blood Carboxyhemoglob 1.5 % (0-1.5); Blood Gas Oxyhemoglobin 85.2 % (94-97); Blood O2 Saturation 87.7 % (92-98.5)
[2021-12-25] MEDS: ACETAMINOPHEN 325 MG TABLET PO PRN (12:31)
--- NOTE | 2021-12-25 13:46 | P.HP ---
Certification for Inpatient Patient admitted to: Inpatient With expected LOS: >2 Midnights Practitioner: I am a practitioner with admitting privileges, knowledge of patient current condition, hospital course, and medical plan of care. Services: Services provided to patient in accordance with Admission requirements found in Title 42 Section 412.3 of the Code of Federal Regulations Patient History Date of Service: 12/25/21 Reason for admission: WEAK,FOUND ON FLOOR. History of Present Illness: MR. MIRANDA WAS BROUGHT TO ER BY EMT HE AT [facility] WAS FOUND ON THE FLOOR. I TALKED TO HIS SON. SON SAW HIM LAST ON TUESDAY AND TUESDAY NIGHT SON STATED TO HAVE COVID SS AND WAS POSITIVE. MR. MIRANDA GOT SICK YESTERDAY. HE IS CONFUSED AND NOT ABLE TO GIVE ANY PROPER HISTORY. Allergies No Known Allergies Allergy (Unverified 05/13/20 00:11) Home medications list reviewed: Yes Home Medications: Unobtainable 05/13/20 - Past Medical/Surgical History Has patient received pneumonia vaccine in the past: No Diabetic: Yes -: DM -: HTN -: CHOLECYSTECTOMY, GALLBLADDER PROBLEM LEF FOOT SURGERRY -: cholecystectomy -: left foot surgery - Family History Father -: Hypertension Mother -: Diabetes - Social History Smoking Status: Former smoker Alcohol use: Yes CD- Drugs: No Caffeine use: Yes Place of Residence: Home Review of Systems is unable to be obtained General: Weakness, Malaise, As per HPI Physical Examination - Vital Signs Temperature: 100 F Blood Pressure: 154/69 Pulse: 87 Respirations: 18 Pulse Ox (%): 92 - Physical Exam General: Oriented x1, Mild distress, Confused HEENT: Atraumatic, PERRLA, Mucous membr. moist/pink, EOMI, Sclerae nonicteric Neck: Supple, 2+ carotid pulse no bruit, No LAD, Without JVD or thyroid abnormality Respiratory: Clear to auscultation bilaterally, Normal air movement Cardiovascular: Regular rate/rhythm, Normal S1 S2 Gastrointestinal: Normal bowel sounds, No tenderness Musculoskeletal: No tenderness Integumentary: Erythema (LEGS, IFLAMED, MILD CELLULITIS, ULCERS, VENOUS STATSIS.) Neurological: Abnormal speech (CONFUSED, NOT ABLE TO FOLLOW COMMANDS.) Lymphatics: No axilla or inguinal lymphadenopathy - Studies Laboratory Data (last 24 hrs) 12/24/21 15:21: Lipase Cancelled 12/24/21 14:08: Sodium Cancelled, Potassium Cancelled, BUN Cancelled, Creatinine Cancelled, Glucose Cancelled, Magnesium 2.1, Total Bilirubin Cancelled, AST Cancelled, ALT Cancelled, Alkaline Phosphatase Cancelled, Lipase 102 12/24/21 14:08: PT 13.3 H, INR 1.21, APTT 30.3 12/24/21 14:08: Sodium 136, Potassium 3.8, BUN 16, Creatinine 1.35 H, Glucose 207 H, Total Bilirubin 1.4 H, AST 473 H*, ALT 227 H, Alkaline Phosphatase 82 12/24/21 14:08: WBC 5.30, Hgb 16.2, Hct 48.7, Plt Count 169 Assessment and Plan - Problems (Diagnosis) (1) COVID Current Visit: Yes Status: Acute Plan: PAXLOVID STARTED. HE HAS NO ACUTE RESPIRATORY DISTRESS HYPOXIA BUT NO PE,NO PNEUMONIA,NO CHF (2) Encephalopathy due to COVID-19 virus Current Visit: Yes Status: Acute Plan: CONSULTED. START THIAMINE IV. (3) Cellulitis, leg Current Visit: Yes Status: Acute Plan: VANCOMYCIN AND ZOSYNIV. STABLE. PROGNOSIS GUARDED I TALKED TO SON. - Advance Directives Does patient have a Living Will: No Does patient have a Durable POA for Healthcare: No
--- NOTE | 2021-12-25 15:38 | RAD REPORT ---
EXAM DESCRIPTION: MRI - Brain Wo Cont - 12/25/2021 3:16 pm CLINICAL HISTORY: Confusion COMPARISON: No comparisons TECHNIQUE: Sagittal T1-weighted images were obtained along with PD/heavily T2-weighted and T2-FLAIR images. Axial DWI and ADC mapping sequences were also obtained along with coronal heavily T2-weighted images were obtained. FINDINGS: No intracranial hemorrhage, mass or acute infarction. There is no edema or shift of midlin e structures. No extra-axial fluid collections. Signal voids are seen as a normal finding in the carlos r intracranial vessels. Mild chronic small vessel ischemic changes. Cerebral atrophy. Mastoid air cells and paranasal sinuses are clear. IMPRESSION: No acute intracranial abnormality. Specifically, no evidence of acute infarct.
--- NOTE | 2021-12-25 19:15 | CON ---
Reason For Consultation: Consultation called because of confusion with COVID-19 positivity. History Of Present Illness: This history is obtained by speaking with the primary care physician, Dr Obdulio Breen, the patient and chart review. Mr. Schaffer is a 76-year-old patient who was admitted with confusion and fever and found to be COVID positive. It is not clear how reliable the patient's history is. He did say he was visited by a relative perhaps a week or more ago, who reportedly had COVID and that is how he contracted COVID. From chart review, the patient was apparently found down at [facility] and was disoriented, confused, and had a fever and was brought in for evaluation. At [facility], T-max has been 100 at forehead and in the emergency room, he was positive for COVID- 19. His blood cell count was normal from yesterday and today with essentially initially a neutrophil count of 79 on the and today is 59.2. INR normal. Arterial blood gas shows a normal pH, CO2 o f 36.4, but pO2 was low at 56.9. Chemistries showed a slightly elevated chloride, but was otherwise unremarkable. Calcium was low at 7.4, glucose 106-94. Liver function studies showed elevated tropon in of 671. His lactic acid was elevated to 3.7, AST elevated to 473, ALT to 222. His ammonia level of 32. Urinalysis showed 1+ protein, 3+ blood, 1+ ketones, 3+ glucose, and he is now on vancomycin w ith a peak of 6.5. His chest x-ray showed no significant pleural effusion; however, there was atelec tasis versus pneumonia in the right lung base. His repeat chest x-ray today shows a slight improveme nt in right base atelectasis. Minimal pneumonia is possible, but unlikely. Chest, abdomen and pelvi s CT scan done yesterday showed no abnormal findings within the chest, abdomen, or pelvis. Doppler t o rule out deep vein thrombosis revealed no deep vein thrombosis in either lower extremity. The avani ent is on multiple antibiotics for possible systemic infection, although he is positive for COVID-19 and there is a reported baseline cognitive impairment and is likely to be experiencing COVID encephal opathy. He did receive vancomycin per protocol and Zosyn along with Rocephin. Past Medical History: Diabetes and hypertension. Past Surgical History: Cholecystectomy and left foot surgery. Family History: Positive for hypertension in father and mother. Positive for diabetes. Social History: Smoked in the past and drinks alcohol and caffeinated beverages. Allergies: NO KNOWN DRUG ALLERGIES. Current Medications: Tylenol 650 mg every 6 hours, albuterol nebulizer 2.5 mg every 6 hours, aspirin 160 mg daily, Lovenox 40 mg subcutaneously daily, Pepcid 20 mg twice daily, morphine 2 mg IV every 8 hours for severe pain, Bactroban 2% ointment topical, Zofran 4 mg every 6 hours as needed, and piper acillin tazobactam 3.375 g every 8 hours. He is receiving IV fluids with normal saline 125 cc/hour, thiamine 100 mg IV push, and vancomycin 1.75 g every 18 hours. Review of Systems: Not reliable at this point, the patient is dozing off during conversations. Objective: Vital Signs: Blood pressure 154/69, pulse 87, respiratory rate 18, temperature 100, oxyg en saturation 92% on 2 L of oxygen by nasal cannula. General: He is normocephalic, atraumatic. Sclerae anicteric. Oropharynx is pink and moist. Neck: Supple. He can go to the chest with his chin. Chest: Clear. Heart: Regular. Extremities: No significant clubbing, cyanosis, or edema. Neurologic: He is alert and oriented to person, but not clearly to situation and place and time. He did follow commands and move both arms equally well, less so to move both legs well. Cranial nerves show no focal deficits. Motor: He has symmetric upper and lower extremities. Sensation is difficu lt to fully assess. Coordination difficult to fully assess as he is not cooperative. Reflexes symme tric. Gait: The patient may be ambulated with the physical therapist. Assessment: Mr. Schaffer is a 76-year-old patient who apparently has a baseline cognitive impairment a nd now has COVID encephalopathy. He does have low-grade fever. No evidence of a systemic bacterial infection. He is still, however, on multiple antibiotics and also no evidence of an acute stroke. H e does not have evidence of a seizure as well. Plan: 1.Followup brain MRI. 2.May cut back antibiotics depending on cultures, which have been negative so far from yesterday and today. 3.The patient is probably out of the window for acute treatment for COVID infection, but may still b e considered. 4.His recovery may require physical therapy in addition to speech therapy for cognitive improvement. At this point, do not recommend a lumbar puncture as the answer is likely already clear as to why t he patient is confused, which is a combination of an [id number] process of baseline dementia an d COVID encephalopathy. RUKHSANA/MERY Voice ID: [id number] Report ID: [id number]
[2021-12-25] MEDS ORDERED: VANCOMYCIN 1.75 GM in NA CHLORIDE 0.9% 500 ML IVPB SCH (21:00)
[2021-12-25] MEDS: FAMOTIDINE 20 MG TAB PO SCH (21:29)
[2021-12-26] MEDS: PIPER TAZO 3.375 GM in NA CHLORIDE 0.9% 100 ML IV SCH ×2 (00:38→09:04)
[2021-12-26] MEDS: ALBUTEROL 2.5 MG/3 ML NEB SOL NEB SCH ×4 (01:25→20:50)
[2021-12-26] MEDS ORDERED: VANCOMYCIN 1.75 GM in NA CHLORIDE 0.9% 500 ML IVPB SCH (02:00)
[2021-12-26 03:41] LABS: Hematocrit 40.7 % (39.6-49.0); MCV 92.9 fL (80-100); MPV 8.4 fL (7.6-11.3); RBC Red Blood Cell Count 4.39 M/uL (4.33-5.43)
[2021-12-26 03:50] LABS: Potassium 3.2 mmol/L (3.5-5.1)
[2021-12-26] MEDS: MORPHINE 4 MG/ML SYR IV PRN ×2 (05:24→11:39)
[2021-12-26] MEDS ORDERED: THIAMINE 200 MG/2 ML INJ IVP SCH (09:00)
[2021-12-26] MEDS: THIAMINE HCL 100 MG TABLET PO SCH (09:05)
[2021-12-26] MEDS: ASPIRIN EC 81 MG TAB PO SCH (09:05)
[2021-12-26] MEDS: FAMOTIDINE 20 MG TAB PO SCH ×2 (09:05→20:42)
[2021-12-26] MEDS: NIRMATRELVIR/RITONAVIR TABLET PO SCH ×2 (09:05→20:41)
[2021-12-26] MEDS: ENOXAPARIN 40 MG/0.4 ML SQ SCH (09:05)
[2021-12-26] MEDS: NA CHLORIDE 0.9% 1,000 ML IV SCH (09:07)
[2021-12-26] MEDS: MUPIROCIN 2% OINT 22GM TUBE TOP SCH ×2 (09:07→21:00)
--- NOTE | 2021-12-26 11:43 | P.PN ---
Subjective Date of Service: 12/26/21 Chief Complaint: WEAK,FOUND ON FLOOR. Patient is confused and cannot provide any subjective complaint. Noted gurgling sound with mild breathing. He is currently saturating well with 2 L of oxygen by nasal cannula. Physical Examination - Vital Signs Temperature: 98.8 F Blood Pressure: 180/77 Pulse: 88 Respirations: 24 Pulse Ox (%): 95 Assessment And Plan - Current Problems (Diagnosis) (1) Venous stasis dermatitis of both lower extremities Current Visit: Yes Status: Acute (2) COVID Current Visit: Yes Status: Acute (3) Cellulitis, leg Current Visit: Yes Status: Acute (4) Encephalopathy due to COVID-19 virus Current Visit: Yes Status: Acute (5) Diabetes mellitus type 2 in obese Current Visit: Yes Status: Acute - Plan Patient is on antibiotics for cellulitis of lower extremities. No significant pneumonia. Stable respiratory mckoy. Neurology input appreciated. Patient diagnosed with COVID encephalopathy. MRI of the brain reviewed. No acute disease, no stroke. Baseline dementia with cognitive deficit. Continue supportive measures for COVID 19. Patient started on Paxlovid Trial of IV Lasix given gurgly respirations. Keep n.p.o. except medications today due to concern for aspiration. Speech therapy for swallow evaluation. Change IV fluid to D5 half NS. Accu-Cheks and insulin sliding scale. Monitor and optimize electrolytes.
[2021-12-26] MEDS ORDERED: D50W 25 GM/50 ML SYRINGE IV PRN (11:49)
[2021-12-26] MEDS ORDERED: GLUCAGON 1 MG/VIAL IM PRN (11:49)
[2021-12-26] MEDS: D5.45NS W/KCL 20MEQ 20 MEQ/1,000 ML BAG IV SCH (11:55)
[2021-12-26] MEDS ORDERED: DEXTROSE 10%-WATER 125 ML IV PRN (11:56)
[2021-12-26] MEDS: CEFEPIME 1 GM in NA CHLORIDE 0.9% 100 ML IV SCH ×2 (12:38→20:40)
[2021-12-26] MEDS: ACETAMINOPHEN 325 MG TABLET PO PRN (12:38)
[2021-12-26] MEDS: VANCOMYCIN 1.5 GM in NA CHLORIDE 0.9% 500 ML IVPB SCH (14:52)
[2021-12-26] MEDS: INSULIN -REGULAR HUMAN 50 UNIT/0.5 ML ML SQ SCH ×2 (16:30→20:41)
--- NOTE | 2021-12-26 19:18 | EKG ---
Test Date: 2021-12-24 Test Time: 13:40:51 Thermograph Operator: STEVAN MEASUREMENT RESULTS: Intervals: Rate: 91 WV: 134 QRSD: 94 QT: 390 QTc: 479 [place]: P: 38 WV: 134 QRS: -2 T: -13 INTERPRETIVE STATEMENTS: Normal sinus rhythm Nonspecific ST and T wave abnormality Abnormal ECG Compared to ECG 05/30/2019 02:35:39 Sinus tachycardia no longer present Possible ischemia no longer present ST (T wave) deviation still present Electronically Signed On 12-26-21 19:11:01 OWNER MANAGER by William Sharp
[2021-12-26] MEDS ORDERED: HOME MED 1 EA UNK (Glimepiride [Glimepiride] 4 MG Tablet) PO SCH (21:00)
[2021-12-27] MEDS: ALBUTEROL 2.5 MG/3 ML NEB SOL NEB SCH ×4 (02:00→20:05)
[2021-12-27 04:23] LABS: Absolute Lymphocytes (CBC) 0.7 K/uL (0.7-4.9); Lymphocytes % 13.9 % (15.3-44.8); MCV 92.9 fL (80-100); MPV 8.8 fL (7.6-11.3); RBC Red Blood Cell Count 4.62 M/uL (4.33-5.43)
[2021-12-27 04:30] LABS: Albumin 2.2 g/dL (3.4-5.0); Bilirubin Total 1.2 mg/dL (0.2-1.0); Potassium 3.4 mmol/L (3.5-5.1); Protein, Total 6.3 g/dL (6.4-8.2)
[2021-12-27] MEDS: D5.45NS W/KCL 20MEQ 20 MEQ/1,000 ML BAG IV SCH (07:07)
[2021-12-27] MEDS: INSULIN -REGULAR HUMAN 50 UNIT/0.5 ML ML SQ SCH ×4 (07:30→21:00)
[2021-12-27] MEDS: CEFEPIME 1 GM in NA CHLORIDE 0.9% 100 ML IV SCH ×2 (08:46→21:08)
[2021-12-27] MEDS: LOSARTAN/HCTZ 50-12.5 PO SCH (08:47)
[2021-12-27] MEDS: NIRMATRELVIR/RITONAVIR TABLET PO SCH ×2 (08:47→21:12)
[2021-12-27] MEDS: ASPIRIN EC 81 MG TAB PO SCH (08:48)
[2021-12-27] MEDS: THIAMINE HCL 100 MG TABLET PO SCH (08:48)
[2021-12-27] MEDS: FAMOTIDINE 20 MG TAB PO SCH ×2 (08:48→21:10)
[2021-12-27] MEDS: FINASTERIDE 5 MG TAB PO SCH (08:48)
[2021-12-27] MEDS: POTASSIUM CL SA 10 MEQ TAB PO SCH ×2 (08:48→21:10)
[2021-12-27] MEDS: ENOXAPARIN 40 MG/0.4 ML SQ SCH (08:49)
[2021-12-27] MEDS: Dapagliflozin Propanediol [Farxiga] 10 MG Tablet PO SCH (08:49)
[2021-12-27] MEDS: MUPIROCIN 2% OINT 22GM TUBE TOP SCH ×2 (08:49→21:00)
[2021-12-27] MEDS ORDERED: POTASSIUM CL SA 10 MEQ TAB PO SCH (09:00)
[2021-12-27] MEDS: VANCOMYCIN 1.5 GM in NA CHLORIDE 0.9% 500 ML IVPB SCH ×2 (10:32→21:00)
--- NOTE | 2021-12-27 12:51 | P.PN ---
Subjective Date of Service: 12/27/21 Chief Complaint: LOT BETTER. MENTALLY AWARE. Subjective: Improving HE IS NOT CONFUSED ANY LONGER. HE DENIES ANY PAIN. Physical Examination - Vital Signs Temperature: 97.7 F Blood Pressure: 146/63 Pulse: 76 Respirations: 18 Pulse Ox (%): 96 - Physical Exam General: Oriented x3, Mild distress HEENT: Atraumatic, PERRLA, EOMI Neck: Supple, JVD not distended Respiratory: Clear to auscultation bilaterally, Normal air movement Cardiovascular: Regular rate/rhythm, Normal S1 S2 Gastrointestinal: Normal bowel sounds, No tenderness Musculoskeletal: No tenderness Integumentary: No rashes, Venous stasis ulcer (L LEG ABOUT2-2 CM. CLEAN, FIBRIN. NO SLOUGH.) Neurological: Normal speech, Normal tone, Normal affect Lymphatics: No axilla or inguinal lymphadenopathy - Studies Medications List Reviewed: Yes Assessment And Plan - Current Problems (Diagnosis) (1) COVID Current Visit: Yes Status: Acute Plan: PAXLOVID STARTED. HE HAS NO ACUTE RESPIRATORY DISTRESS HYPOXIA BUT NO PE,NO PNEUMONIA,NO CHF (2) Encephalopathy due to COVID-19 virus Current Visit: Yes Status: Acute Plan: CONSULTED. START THIAMINE IV. IMPROVED BACK TO NORMAL NOW. (3) Cellulitis, leg Current Visit: Yes Status: Acute Plan: VANCOMYCIN AND ZOSYNIV. STABLE. PROGNOSIS GUARDED I TALKED TO SON. LOT BETTER. HE WILL NEED SNIF FOR PT.
[2021-12-27] MEDS ORDERED: PNEUMOCOCCAL VACCINE 0.5 ML IMVAC ONE (14:00)
[2021-12-27] MEDS ORDERED: INFLUENZA VACCINE (for 6+ mo) 0.5 ML DOSE IMVAC ONE (14:00)
[2021-12-28] MEDS: ALBUTEROL 2.5 MG/3 ML NEB SOL NEB SCH ×5 (02:00→19:35)
[2021-12-28] MEDS: D5.45NS W/KCL 20MEQ 20 MEQ/1,000 ML BAG IV SCH (04:00)
[2021-12-28] MEDS: INSULIN -REGULAR HUMAN 50 UNIT/0.5 ML ML SQ SCH ×4 (07:30→21:00)
[2021-12-28] MEDS: MUPIROCIN 2% OINT 22GM TUBE TOP SCH ×2 (09:00→21:00)
[2021-12-28] MEDS: Dapagliflozin Propanediol [Farxiga] 10 MG Tablet PO SCH (09:00)
[2021-12-28 09:23] LABS: Absolute Lymphocytes (CBC) 0.8 K/uL (0.7-4.9); Hematocrit 44.2 % (39.6-49.0); Lymphocytes % 17.5 % (15.3-44.8); MPV 8.7 fL (7.6-11.3)
[2021-12-28 09:27] LABS: Magnesium 2.3 mg/dL (1.8-2.4); Potassium 3.4 mmol/L (3.5-5.1)
[2021-12-28] MEDS: NIRMATRELVIR/RITONAVIR TABLET PO SCH ×2 (09:29→22:29)
[2021-12-28] MEDS: LOSARTAN/HCTZ 50-12.5 PO SCH (09:29)
[2021-12-28] MEDS: FAMOTIDINE 20 MG TAB PO SCH ×2 (09:30→21:33)
[2021-12-28] MEDS: ENOXAPARIN 40 MG/0.4 ML SQ SCH (09:30)
[2021-12-28] MEDS: THIAMINE HCL 100 MG TABLET PO SCH (09:30)
[2021-12-28] MEDS: FINASTERIDE 5 MG TAB PO SCH (09:30)
[2021-12-28] MEDS: POTASSIUM CL SA 10 MEQ TAB PO SCH ×2 (09:30→21:33)
[2021-12-28] MEDS: ASPIRIN EC 81 MG TAB PO SCH (09:30)
[2021-12-28] MEDS: CEFEPIME 1 GM in NA CHLORIDE 0.9% 100 ML IV SCH ×2 (09:31→21:45)
[2021-12-28] MEDS: VANCOMYCIN 1.5 GM in NA CHLORIDE 0.9% 500 ML IVPB SCH ×2 (10:40→22:30)
--- NOTE | 2021-12-28 17:50 | P.PN ---
Subjective Date of Service: 12/28/21 Chief Complaint: LOT BETTER. MENTALLY AWARE. Subjective: Improving HE IS NOT CONFUSED ANY LONGER. HE DENIES ANY PAIN. WE ARE WAITING OR SNIF BED FOR HIM HE IS STABLE TO SNIF WHEN INSURACE APPROVES IT. Physical Examination - Vital Signs Temperature: 97.2 F Blood Pressure: 155/79 Pulse: 75 Respirations: 16 Pulse Ox (%): 94 - Physical Exam General: Oriented x3, Mild distress HEENT: Atraumatic, PERRLA, EOMI Neck: Supple, JVD not distended Respiratory: Clear to auscultation bilaterally, Normal air movement Cardiovascular: Regular rate/rhythm, Normal S1 S2 Gastrointestinal: Normal bowel sounds, No tenderness Musculoskeletal: No tenderness Integumentary: No rashes, Other Neurological: Normal speech, Normal tone, Normal affect Lymphatics: No axilla or inguinal lymphadenopathy - Studies Medications List Reviewed: Yes Assessment And Plan - Current Problems (Diagnosis) (1) COVID Current Visit: Yes Status: Acute Plan: PAXLOVID STARTED. HE HAS NO ACUTE RESPIRATORY DISTRESS HYPOXIA BUT NO PE,NO PNEUMONIA,NO CHF (2) Encephalopathy due to COVID-19 virus Current Visit: Yes Status: Acute Plan: CONSULTED. START THIAMINE IV. IMPROVED BACK TO NORMAL NOW. (3) Cellulitis, leg Current Visit: Yes Status: Acute Plan: VANCOMYCIN AND ZOSYNIV. STABLE. PROGNOSIS GUARDED I TALKED TO SON. LOT BETTER. HE WILL NEED SNIF FOR PT.
[2021-12-29] MEDS: D5.45NS W/KCL 20MEQ 20 MEQ/1,000 ML BAG IV SCH
[2021-12-29] MEDS: ALBUTEROL 2.5 MG/3 ML NEB SOL NEB SCH ×2 (01:15→09:01)
[2021-12-29 03:19] VITALS: O2SAT 96
[2021-12-29] MEDS: POTASSIUM CL SA 10 MEQ TAB PO SCH (08:46)
[2021-12-29] MEDS: LOSARTAN/HCTZ 50-12.5 PO SCH (08:46)
[2021-12-29] MEDS: THIAMINE HCL 100 MG TABLET PO SCH (08:46)
[2021-12-29] MEDS: FAMOTIDINE 20 MG TAB PO SCH (08:46)
[2021-12-29] MEDS: FINASTERIDE 5 MG TAB PO SCH (08:46)
[2021-12-29] MEDS: ASPIRIN EC 81 MG TAB PO SCH (08:46)
[2021-12-29] MEDS: ENOXAPARIN 40 MG/0.4 ML SQ SCH (08:47)
[2021-12-29] MEDS: INSULIN -REGULAR HUMAN 50 UNIT/0.5 ML ML SQ SCH ×2 (08:47→11:30)
[2021-12-29] MEDS: NIRMATRELVIR/RITONAVIR TABLET PO SCH (08:47)
[2021-12-29] MEDS: MUPIROCIN 2% OINT 22GM TUBE TOP SCH (08:48)
[2021-12-29] MEDS: Dapagliflozin Propanediol [Farxiga] 10 MG Tablet PO SCH (08:48)
[2021-12-29] MEDS: VANCOMYCIN 1.5 GM in NA CHLORIDE 0.9% 500 ML IVPB SCH (09:00)
[2021-12-29] MEDS: CEFEPIME 1 GM in NA CHLORIDE 0.9% 100 ML IV SCH (09:00)
[2021-12-29 12:28] VITALS: BP 137/85; TEMP 98
--- NOTE | 2021-12-29 14:04 | P.DS ---
Admission Date: 12/24/21 Discharge Date: 12/29/21 Disposition: TRANSFER TO SNF - MEDICAL Discharge Condition: FAIR Reason for Admission: LOT BETTER. MENTALLY AWARE. - Problems (1) COVID Current Visit: Yes Status: Acute (2) Encephalopathy due to COVID-19 virus Current Visit: Yes Status: Acute (3) Cellulitis, leg Current Visit: Yes Status: Acute Brief History of Present Illness: MR. MIRANDA WAS BROUGHT TO ER BY EMT HE AT [facility] WAS FOUND ON THE FLOOR. I TALKED TO HIS SON. SON SAW HIM LAST ON TUESDAY AND TUESDAY NIGHT SON STATED TO HAVE COVID SS AND WAS POSITIVE. MR. MIRANDA GOT SICK YESTERDAY. HE IS CONFUSED AND NOT ABLE TO GIVE ANY PROPER HISTORY. Hospital Course: MR. MIRANDA COMES WITH GEN WEAKNESS CONFUSION. HE IS COVID POSITIVE. HIS CONFUSION WAS SECONDARY TO COVID ENCEPHALOPATHY. HE IS DOING WELL AFTER PAXLOVID. HE HAS HAD NO SIDE EFFCTS. HE IS BACK TO HIS BASELINE. HE ALSO HAD LEG CELLULITIS WITH SMALL ULCER. THAT HAS IMPROVED ON VANCOMYCIN AND CEFEPIME. HE WILL CONTINUE THIS FOR 5 MORE DAYS. HE IS STABLE TO GO TO [facility] FOR PT. HE IS POORLY CONTROLLED DIABETIC DIET IS POOR AND MEDS ARE NOT AFFORDABLE. Vital Signs/Physical Exam: Temp Pulse Resp BP Pulse Ox 98.0 F 86 18 137/85 98 12/29/21 12:00 12/29/21 13:04 12/29/21 12:00 12/29/21 12:00 12/29/21 12:00 Laboratory Data at Discharge: WBC 4.60 K/uL (4.3-10.9) 12/28/21 08:51 Hgb 14.8 g/dL (13.6-17.9) 12/28/21 08:51 Hct 44.2 % (39.6-49.0) 12/28/21 08:51 Plt Count 123 K/uL (152-406) L 12/28/21 08:51 PT 13.3 SECONDS (9.5-12.5) H 12/24/21 14:08 INR 1.21 12/24/21 14:08 APTT 30.3 SECONDS (24.3-36.9) 12/24/21 14:08 Sodium 141 mmol/L (136-145) 12/28/21 08:51 Potassium 3.4 mmol/L (3.5-5.1) L 12/28/21 08:51 BUN 10 mg/dL (7-18) 12/28/21 08:51 Creatinine 0.65 mg/dL (0.55-1.3) 12/28/21 08:51 Glucose 136 mg/dL (74-106) H 12/28/21 08:51 Magnesium 2.1 mg/dL (1.8-2.4) 12/29/21 07:00 Total Bilirubin 1.2 mg/dL (0.2-1.0) H 12/27/21 03:29 AST 259 U/L (15-37) H 12/27/21 03:29 ALT 110 U/L (12-78) H 12/27/21 03:29 Alkaline Phosphatase 38 U/L (45-117) L 12/27/21 03:29 Lipase Cancelled 12/24/21 15:21 Home Medications: Dapagliflozin Propanediol [Farxiga] 1 tab PO DAILY 12/25/21 Finasteride [Proscar*] 1 tab PO DAILY 12/25/21 Glimepiride 1 tab PO BID 12/25/21 Losartan/Hydrochlorothiazide [Losartan-Hctz 50-12.5 mg Tab] 1 tab PO DAILY 12/25/21 Enoxaparin Sodium [Lovenox 40 MG INJ*] 40 mg SQ DAILY syr 12/29/21 Famotidine [Pepcid*] 20 mg PO BID tab 12/29/21 Potassium Oral Tab [Klor-Con 10 mEq Tab*] 20 meq PO BID tab 12/29/21 Thiamine HCl [Vitamin B-1*] 100 mg PO DAILY 12/29/21 Followup: Espinoza Breen MD [Primary Care Provider] - 1 Week
== END 2021-12-29 14:50 | DRG 178 ==
LOC: ER 13:16 → ERHOLD 15:38 → 2ND 12-25 00:10
PROVIDERS: ADMIT Internal Medicine; ATTEND Internal Medicine
PROC: XW0DXF5 Introduction of Other New Technology Therapeutic Substance into Mouth and Pharynx, External Approach, New Technology Group 5 (ICD-10-PCS; principal; 2021-12-25)
DX: U07.1 COVID-19 (principal); G93.49 Other encephalopathy; L03.115 Cellulitis of right lower limb; L03.116 Cellulitis of left lower limb; L97.929 Non-pressure chronic ulcer of unspecified part of left lower leg with unspecified severity; L97.919 Non-pressure chronic ulcer of unspecified part of right lower leg with unspecified severity; F03.90 Unspecified dementia, unspecified severity, without behavioral disturbance, psychotic disturbance, mood disturbance, and anxiety; I10 Essential (primary) hypertension; E11.65 Type 2 diabetes mellitus with hyperglycemia; I87.2 Venous insufficiency (chronic) (peripheral); E66.9 Obesity, unspecified; Z68.32 Body mass index [BMI] 32.0-32.9, adult; Z79.84 Long term (current) use of oral hypoglycemic drugs; Z90.49 Acquired absence of other specified parts of digestive tract; Z87.891 Personal history of nicotine dependence; Z91.018 Allergy to other foods; Z79.899 Other long term (current) drug therapy
CPT/HCPCS: 0240U; 36415; 70551; 71045; 71250; 74176; 80048; 80053; 80202; 81003; 81015; 82140; 82248; 82805; 82947; 83605; 83690; 83735; 83880; 84484; 85025; 85027; 85610; 85730; 87040; 93005; 93970; 94640; 96361; 96365; 96366; 96367; 96375; 97116; 97161; 97530; 99285; J0692; J1650; J1815; J2543; J3370; J7030; J7040; J7050; J7613